=== PATIENT | female | born 1970 | race Caucasian/White ===

== ENCOUNTER 2017-05-20 15:39 | Inpatient (IN) | payer OTHER ==
[~2017-05-20] VITALS: Ht 157.5 cm; Wt 60.0 kg
[2017-05-20] MEDS ORDERED: SOD CHLORIDE 0.9% 1,000 ML IV STA (16:20)
[2017-05-20] MEDS ORDERED: morphine 4 MG/ML VIAL IV STA (16:20)
[2017-05-20] MEDS ORDERED: ONDANSETRON 4 MG INJ IV STA (16:20)
[2017-05-20 16:40] LABS: BASOPHIL # 0.1 10^3/ul (0.0-0.1); BASOPHILS % 0.7 % (0.0-2.0); EOSINOPHILS # 0.5 10^3/ul (0.0-0.5); EOSINOPHILS % 7.4 % (0.0-7.0); HEMATOCRIT 41.9 % (37.0-47.0); HEMOGLOBIN 13.5 g/dl (12.0-16.0); LYMPHOCYTES # 2.3 10^3/ul (0.8-2.9); LYMPHOCYTES % 31.8 % (15.0-51.0); MEAN CORPUSCULAR HEMOGLOBIN 26.3 pg (29.0-33.0); MEAN CORPUSCULAR HGB CONC 32.2 g/dl (32.0-37.0); MEAN CORPUSCULAR VOLUME 81.7 fl (82.0-101.0); MEAN PLATELET VOLUME 10.1 fl (7.4-10.4); MONOCYTE # 0.5 10^3/ul (0.3-0.9); MONOCYTES % 7.6 % (0.0-11.0); NEUTROPHILS % 52.5 % (39.0-77.0); PLATELET COUNT 406 10^3/UL (140-415); RED BLOOD COUNT 5.13 10^6/ul (4.20-5.40); RED CELL DISTRIBUTION WIDTH 15.6 % (11.5-14.5); WHITE BLOOD COUNT 7.1 10^3/ul (4.8-10.8)
[2017-05-20 16:56] LABS: PROTIME 13.2 Sec (12.2-14.2)
[2017-05-20 16:59] LABS: ALANINE AMINOTRANSFERASE 22 IU/L (13-69); ALBUMIN 3.7 g/dl (3.3-4.9); ALKALINE PHOSPHATASE 102 IU/L (42-121); ANION GAP 13 (8-16); ASPARTATE AMINO TRANSFERASE 46 IU/L (15-46); BILIRUBIN,INDIRECT 0.2 mg/dl (0-1.1); BILIRUBIN,TOTAL 0.2 mg/dl (0.2-1.3); BLOOD UREA NITROGEN 7 mg/dl (7-20); CALCIUM 9.2 mg/dl (8.4-10.2); CARBON DIOXIDE 28 mmol/L (21-31); CHLORIDE 99 mmol/L (97-110); CREATININE 0.62 mg/dl (0.44-1.00); GLUCOSE 92 mg/dl (70-220); POTASSIUM 4.1 mmol/L (3.5-5.1); SODIUM 136 mmol/L (135-144); TOTAL PROTEIN 7.4 g/dl (6.1-8.1)
[2017-05-20 17:11] LABS: TROPONIN-I < 0.012 ng/ml (0.00-0.12)
[2017-05-20 17:16] LABS: ADD UMIC YES; UR ASCORBIC ACID 40 mg/dL (NEGATIVE); UR BILIRUBIN (Dip) NEGATIVE (NEGATIVE); UR CLARITY CLOUDY (CLEAR); UR COLOR AMBER (YELLOW); UR GLUCOSE (Dip) NEGATIVE (NEGATIVE); UR KETONES (Dip) 1+ mg/dL (NEGATIVE); UR LEUKOCYTE ESTERASE (Dip) 1+ Leu/ul (NEGATIVE); UR MUCUS MANY /HPF (NONE SEEN); UR NITRITE (Dip) NEGATIVE (NEGATIVE); UR RBC > 182 /HPF (0-5); UR SPECIFIC GRAVITY (Dip) 1.028 (1.003-1.030); UR SQUAMOUS EPITHELIAL CELL FEW /HPF (FEW); UR TOTAL PROTEIN (Dip) 3+ mg/dl (NEGATIVE); UR UROBILINOGEN (Dip) NEGATIVE (NEGATIVE)
[2017-05-20] MEDS ORDERED: IOHEXOL 300MG/ML 150 ML BTL ONE (17:18)
[2017-05-20] MEDS ORDERED: SOD CHLORIDE 0.9% 100 ML ONE (17:18)
[2017-05-20 17:21] LABS: UR BLOOD (Dip) 3+ mg/dL (NEGATIVE)
[2017-05-20] MEDS ORDERED: PIPER-TAZO 3.375 GM IV (PMX) 100 ML IVPB ONE (17:30)
--- NOTE | 2017-05-20 21:15 | ERA ---
ER Documentation Chief Complaint Date/Time DATE: 05/20/17 TIME: 21:06 Chief Complaint rectal bleeding, rectal pain and abd pain x 2 months HPI 47-year-old woman with a history of colon cancer presents with rectal pain and bleeding 2 days. She has been using oral analgesics at home without relief. She states she feels weak, denies fevers or chills, no vomiting or diarrhea, no chest pain or shortness of breath. ROS All systems reviewed and are negative except as per history of present illness. Medications Home Meds Reported Medications Acetaminophen* (Acetaminophen*) 500 MG Extra Strength Tablet, 500 MG PO Q4H Y for PAIN AND OR ELEVATED TEMP, TAB 05/21/17 Allergies Allergies: Coded Allergies: No Known Allergy (Unverified , 05/20/17) PMhx/Soc Metastatic colon cancer FmHx Family History: No diabetes Physical Exam Vitals Vital Signs Date Time Temp Pulse Resp B/P Pulse Ox O2 Delivery O2 Flow Rate FiO2 05/20/17 17:39 85 18 101/70 98 Room Air 05/20/17 15:42 98.0 113 20 124/82 95 Physical Exam GENERAL: Well-developed, malnourished, emaciated woman, jaundice, afebrile, moderate discomfort HEENT: Dry mucous membranes, pale conjunctiva, jaundice with icterus, no cervical spine deformity, no goiter NEURO: Alert and oriented 3, cranial nerves II through XII intact bilaterally, pupils equal round reactive to light, no focal deficits or facial asymmetry, sensation intact distally Strength 5/5 in upper and lower extremities bilaterally CARDIAC: Tachycardic and regular, no murmurs rubs or gallops LUNGS: Clear bilaterally no wheezing crackles or stridor ABDOMEN: Large lower abdominal mass, mildly tender, no McBurney's point tenderness, bowel sounds normoactive SKIN: Warm and dry to touch, no abrasions, contusions, or hematomas, no lacerations, no ecchymosis, no target lesions, and without ulcers EXTREMITIES: No clubbing cyanosis, 2+ pitting edema in the lower extremities bilaterally, calves are bilaterally symmetrical, no Homans sign, no popliteal cord sign. Distal pulses equal and bilateral PSYCH: Flat affect Result Diagram: 05/23/17 0455 05/23/17 0455 Results 24 hrs Laboratory Tests Test 05/20/17 16:30 05/20/17 16:45 White Blood Count 7.110^3/ul Red Blood Count 5.1310^6/ul Hemoglobin 13.5g/dl Hematocrit 41.9% Mean Corpuscular Volume 81.7fl Mean Corpuscular Hemoglobin 26.3pg Mean Corpuscular Hemoglobin Concent 32.2g/dl Red Cell Distribution Width 15.6% Platelet Count 60702^3/UL Mean Platelet Volume 10.1fl Neutrophils % 52.5% Lymphocytes % 31.8% Monocytes % 7.6% Eosinophils % 7.4% Basophils % 0.7% Nucleated Red Blood Cells % 0.0/100WBC Neutrophils # (Manual) 3.810^3/ul Lymphocytes # 2.310^3/ul Monocytes # 0.510^3/ul Eosinophils # 0.510^3/ul Basophils # 0.110^3/ul Nucleated Red Blood Cells # 0.010^3/ul Prothrombin Time 13.2Sec Prothrombin Time Ratio 1.0 INR International Normalized Ratio 1.00 Sodium Level 136mmol/L Potassium Level 4.1mmol/L Chloride Level 99mmol/L Carbon Dioxide Level 28mmol/L Anion Gap 13 Blood Urea Nitrogen 7mg/dl Creatinine 0.62mg/dl Glucose Level 92mg/dl Calcium Level 9.2mg/dl Total Bilirubin 0.2mg/dl Direct Bilirubin 0.00mg/dl Indirect Bilirubin 0.2mg/dl Aspartate Amino Transf (AST/SGOT) 46IU/L Alanine Aminotransferase (ALT/SGPT) 22IU/L Alkaline Phosphatase 102IU/L Troponin I < 0.012ng/ml Total Protein 7.4g/dl Albumin 3.7g/dl Globulin 3.70g/dl Albumin/Globulin Ratio 1.00 Lipase 46U/L Urine Color JESSICA Urine Clarity CLOUDY Urine pH 5.0 Urine Specific [place] 1.028 Urine Ketones 1+mg/dL Urine Nitrite NEGATIVEmg/dL Urine Bilirubin NEGATIVEmg/dL Urine Urobilinogen NEGATIVEmg/dL Urine Leukocyte Esterase 1+Trisha/ul Urine Microscopic RBC > 182/HPF Urine Microscopic WBC 12/HPF Urine Squamous Epithelial Cells FEW/HPF Urine Mucus MANY/HPF Urine Hemoglobin 3+mg/dL Urine Glucose NEGATIVEmg/dL Urine Total Protein 3+mg/dl Current Medications Medications (Trade) Dose Ordered Sig/Dong Route PRN Reason Start Time Stop Time Status Last Admin Dose Admin Sodium Chloride (NS) 1,000 ml @ 2,000 mls/hr Q30M STAT IV 05/20/17 16:20 05/20/17 16:49 DC 05/20/17 16:36 Morphine Sulfate (morphine) 4 mg ONCE STAT IV 05/20/17 16:20 05/20/17 16:22 DC 05/20/17 16:36 Ondansetron HCl (Zofran Inj) 4 mg ONCE STAT IV 05/20/17 16:20 05/20/17 16:22 DC 05/20/17 16:36 IV Flush 10 ml 10 ml STK-MED ONCE .ROUTE 05/20/17 17:18 05/20/17 17:19 DC Sodium Chloride (NS) 100 ml @ ud STK-MED ONCE .ROUTE 05/20/17 17:18 05/20/17 17:19 DC Iohexol 150 ml 150 ml STK-MED ONCE .ROUTE 05/20/17 17:18 05/20/17 17:19 DC Piperacillin Sod/ Tazobactam Sod (Zosyn 3.375gm/ 100 ml (Pmx)) 100 ml @ 200 mls/hr ONCE ONCE IVPB 05/20/17 17:30 05/20/17 17:59 DC 05/20/17 17:35 Procedures/MDM IV line was established patient was placed on treating inspector rhythm strip revealed a sinus tachycardia at 100 bpm. Patient was afebrile. EKG performed, read by me: 99 bpm, normal sinus rhythm, normal axis, no acute ST segment changes, narrow QRS complex, with good R-wave progression in precordial leads. Inspection of external genitalia revealed external hemorrhoids and skin desquamation without active bleeding. I administered 2 L normal saline intravenously for dehydration, morphine 4 mg IV 1 for pain control, Zofran 4 mg IV CBC was unremarkable, electrolytes normal, liver function tests normal, troponin was negative urine analysis was concerning for early urinary tract infection. Coagulation profile was normal. I treated her here with Zosyn 3.[address] scan of the abdomen and pelvis was performed and revealed 1. Moderate bilateral pleural effusions and dependent compressive atelectasis and patchy consolidation in the right middle and right lower lobes. 2. Highly suspicious cystic lesions with a dominant lesion appearing to arise from the right adnexa measuring 10.7 x 15.5 x 14.8 cm, concerning for epithelial neoplasm. 3. Questionable soft tissue implant in the right ventral mid abdomen, suspicious for carcinomatosis. 4. Moderate volume of loculated ascites. Anasarca. 5. Indeterminate 1.4 cm hepatic lesion in the junction of segments 5 and 8 with additional hepatic hypodensities that are too small to further characterize. Multiphase CT scan or MRI with Eovist can be performed for further evaluation. 6. Irregular wall thickening of the mid and distal rectum, which may correspond to the patient's known GI neoplasm. 7. Nonspecific bilateral inguinal adenopathy. Patient was afebrile and I do not suspect sepsis. Patient will be admitted to [facility] for continued medical management and surgical oncology consultation. Departure Diagnosis: Primary Impression: Rectal hemorrhage Additional Impressions: Colon carcinoma Pleural effusion UTI (urinary tract infection) Qualified Code: N30.00 - Acute cystitis without hematuria Dehydration Intractable pain Anasarca Condition: CHRISTIANA Bruno MD May 20, 2017 21:15
[2017-05-20] MEDS ORDERED: NACL 0.9% 3 ML SYG IV SCH (21:30)
[2017-05-20] MEDS ORDERED: ACETAMINOPHEN 325 MG TAB PO PRN (21:30)
[2017-05-20] MEDS ORDERED: HYDROCODONE/APAP (5/325) TAB PO PRN ×2 (21:30)
[2017-05-20] MEDS ORDERED: DOCUSATE SODIUM 100 MG CAP PO PRN (21:30)
[2017-05-20] MEDS ORDERED: MAGNESIUM HYDROXIDE 30ML CUP PO PRN (21:30)
[2017-05-20] MEDS ORDERED: BISACODYL 10 MG SUPP PR PRN (21:30)
[2017-05-20] MEDS ORDERED: ONDANSETRON 4 MG INJ IV PRN (21:30)
[2017-05-20 22:35] VITALS: BP_SYST 119; BP_DIAS 70; BP_DIAS 77; PULSE 90; RESP 19; RESP 20
[2017-05-20 22:57] VITALS: Ht 157.5 cm; Wt 60.0 kg
[2017-05-20] MEDS: PIPER-TAZO 3.375 GM IV (PMX) 100 ML IVPB SCH (23:26)
[2017-05-20] MEDS: SOD CHLORIDE 0.9% 1,000 ML IV SCH (23:27)
[2017-05-21 02:06] VITALS: BP 105/66; RESP 18
[2017-05-21] MEDS ORDERED: ACET-141 PO (03:12)
[2017-05-21] MEDS: PIPER-TAZO 3.375 GM IV (PMX) 100 ML IVPB SCH ×3 (06:41→21:50)
[2017-05-21 07:03] LABS: BASOPHILS % 0.7 % (0.0-2.0); EOSINOPHILS # 0.6 10^3/ul (0.0-0.5); EOSINOPHILS % 10.3 % (0.0-7.0); HEMATOCRIT 33.9 % (37.0-47.0); HEMOGLOBIN 10.8 g/dl (12.0-16.0); LYMPHOCYTES # 1.8 10^3/ul (0.8-2.9); LYMPHOCYTES % 32.4 % (15.0-51.0); MEAN CORPUSCULAR HGB CONC 31.9 g/dl (32.0-37.0); MEAN CORPUSCULAR VOLUME 81.5 fl (82.0-101.0); MEAN PLATELET VOLUME 10.6 fl (7.4-10.4); MONOCYTE # 0.6 10^3/ul (0.3-0.9); MONOCYTES % 10.1 % (0.0-11.0); NEUTROPHILS % 46.3 % (39.0-77.0); PLATELET COUNT 324 10^3/UL (140-415); RED BLOOD COUNT 4.16 10^6/ul (4.20-5.40); RED CELL DISTRIBUTION WIDTH 15.9 % (11.5-14.5); WHITE BLOOD COUNT 5.4 10^3/ul (4.8-10.8)
[2017-05-21 07:23] LABS: ALBUMIN 2.6 g/dl (3.3-4.9); ALBUMIN/GLOBULIN RATIO 0.86; BILIRUBIN,INDIRECT 0.1 mg/dl (0-1.1); BILIRUBIN,TOTAL 0.1 mg/dl (0.2-1.3); CREATININE 0.52 mg/dl (0.44-1.00); MAGNESIUM 1.9 mg/dl (1.7-2.5); PHOSPHORUS 4.2 mg/dl (2.5-4.9); POTASSIUM 3.9 mmol/L (3.5-5.1); TOTAL PROTEIN 5.6 g/dl (6.1-8.1)
[2017-05-21 07:50] LABS: THYROID STIMULATING HORMONE 2.87 MIU/L (0.465-4.680)
[2017-05-21 08:00] VITALS: BP 118/64; RESP 20
[2017-05-21] MEDS: FAMOTIDINE 20 MG TAB PO SCH ×2 (08:50→20:01)
[2017-05-21] MEDS: SOD CHLORIDE 0.9% 1,000 ML IV SCH ×2 (08:50→17:59)
[2017-05-21] MEDS ORDERED: ENOXAPARIN 40 MG/0.4 ML SYG SC SCH (09:00)
--- NOTE | 2017-05-21 09:54 | RADRPT ---
PROCEDURE: CT abdomen and pelvis with contrast. CLINICAL INDICATION: Abdominal pain. Rectal bleeding. TECHNIQUE: CT scan of the abdomen and pelvis with contrast was performed after the uneventful intrav enous administration of 90 cc of Omnipaque-300. Coronal and sagittal reformatted images were obtaine d from the axial source images. The total exam CTDI equals 7.59 mGy and the total exam DLP equals 42 7.53 mGy-cm. One or more of the following dose reduction techniques were used: - Automated exposure control. - Adjustment of the mA and/or kV according to patient size. - Use of iterative reconstruction technique. COMPARISON: None available. FINDINGS: Visualized lower thorax: There are moderate bilateral pleural effusions with dependent compressive atelectasis. There is patchy consolidation in the visualized aerated right lower lobe and right mid dle lobe. There is also minor consolidation in the lingula. The visualized heart is unremarkable. Hepatobiliary system and spleen: There is an indeterminate 1.4 cm hypodense lesion at the junction of segment 5 and 8 in the liver and additional hypodensities scattered throughout the liver that are too small to further characterize. There is no intra or extrahepatic biliary ductal dilatation. The gallbladder is unremarkable. The spleen is unremarkable. The pancreas is unremarkable. Adrenal glands and genitourinary system: The adrenal glands are unremarkable. There are no renal ma sses or hydronephrosis. The urinary bladder is unremarkable. There is a large, multiloculated cystic lesion with thickened enhancing septa and likely a thickened mural nodularity that appears to be ar ising from the right adnexa are measuring approximately 10.7 x 15.5 x 14.8 cm. There is an addition al multiloculated cystic lesion with thickened enhancing septa and mural nodularity centered in the posterior pelvis measuring 7.0 x 5.5 cm, which appears to be separate from the dominant cystic lesio n and may be arising from the left adnexa. The uterus is unremarkable. There is nonspecific fluid within the vaginal canal. Gastrointestinal system: The stomach and small bowel are unremarkable. There is a moderate of stool throughout the colon, consistent with constipation. There is nonspecific irregular wall thickening of the mid and distal rectum. There is no evidence of bowel obstruction. The appendix is in the ri ght lower quadrant and is unremarkable. Peritoneum, vascular system, lymphatics: There is a moderate volume of loculated ascites. There is questionable soft tissue thickening in the ventral right mid abdomen, which may reflect carcinomatos is. The aorta is nonaneurysmal. There is anasarca. There is bilateral inguinal adenopathy. There is no mesenteric or retroperitoneal adenopathy. Musculoskeletal system: There are no concerning osseous lesions. IMPRESSION: 1. Moderate bilateral pleural effusions and dependent compressive atelectasis and patchy consolidat ion in the right middle and right lower lobes. 2. Highly suspicious cystic lesions with a dominant lesion appearing to arise from the right adnexa measuring 10.7 x 15.5 x 14.8 cm, concerning for epithelial neoplasm. 3. Questionable soft tissue implant in the right ventral mid abdomen, suspicious for carcinomatosis . 4. Moderate volume of loculated ascites. Anasarca. 5. Indeterminate 1.4 cm hepatic lesion in the junction of segments 5 and 8 with additional hepatic hypodensities that are too small to further characterize. Multiphase CT scan or MRI with Eovist can be performed for further evaluation. 6. Irregular wall thickening of the mid and distal rectum, which may correspond to the patient's kn own GI neoplasm. 7. Nonspecific bilateral inguinal adenopathy. These findings discussed with Dr. Blanco in the ED at 1923 hours on 05/20/2017. RPTAT: HLBP .Gerard Woods MD, Date Time Electronically viewed and signed by .Gerard Woods MD, on 05/20/2017 19:28 .P/
--- NOTE | 2017-05-21 10:43 | HP ---
Date/Time of Note Date/Time of Note DATE: 05/21/17 TIME: 10:30 Assessment/Plan VTE Prophylaxis VTE Prophylaxis Intervention: SCD's Lines/Catheters IV [facility]ter [facility]from [facility]): Peripheral IV Urinary Cath still in place: No Assessment/Plan Assessment/Plan 47-year-old female with: 1. Metastatic carcinoma, patient with multiple intra-abdominal masses, adnexal cystic masses, concern for primary ovarian cancer also based on the findings on CAT scan of the abdomen and pelvis, patient also a history reported of GI malignancy. CA 125 elevated in the 700 I discussed the case with Dr. Edwards, he will review additional information regarding this previous colon cancer diagnosis and liver findings but would defer to [employer]/ONC and Oncology for now MRI brain, CAT scan of the chest pending for further staging Follow-up recommendation for multiple consultants I did update the patient and the patient , they are very emotional and want to be aggressive at this point. I have told her and her multiple times we have to await recommendations and evaluation from the consultants to determine her final diagnosis, treatment plan if any and prognosis Continue pain control, IV fluids 2. Possible urinary tract infection based on UA, follow-up on urine cultures, currently on Zosyn. 3. Chronic anemia, likely related to underlying malignancy and also episodes of rectal bleeding. Hemoglobin stable for now. GI consult if needed. Prophylaxis: SCDs for DVT prophylaxis, Pepcid for GI prophylaxis Disposition: Additional imaging for metastatic workup, multiple consultants including general surgery, oncology, [employer]/ONC and GI if needed. HPI/ROS Admit Date/Time Admit Date/Time May 20, 2017 at 18:19 Hx of Present Illness Chief complaint: Abdominal pain History of presenting illness: 47-year-old female with apparently previous diagnosis of GI malignancy a year and a half ago, she declined all treatment including surgery at that time, presented to the emergency department last night with complaint of diffuse abdominal pain and stool incontinence. Patient had a CAT scan of the abdomen and pelvis and was found to have a multiple masses throughout the abdomen consistent with metastatic disease. The patient reports that for the past 6 months she has been having episodes of rectal bleeding, over the past year she has a 30 pound weight loss, she still tolerating some p.o. but decreased appetite. She denies any fevers chills, she denies any dysuria. She reports occasional rectal bleeding but otherwise a mucous stool, she reports that she went to [facility] 6 months ago and was told to assume she had IBS and did not seek any further care. It seems like she has not had much follow-up since her diagnosis a year and a half ago and she has declined all treatment at that time. She is now pleading to have debulking surgery, aggressive treatment. I have explained to her that proper diagnosis has to be made especially when the CAT scan is showing some ovarian cystic masses also suspicious for possible ovarian cancer. I have discussed the case briefly with Dr. Edwards based on the previous diagnosis of colon cancer and the findings currently. He has reviewed the CAT scan and again is suspicious that ovarian cancer may be the primary/or at least a concomitant malignancy. Oncology, [employer]/ONC will be consulted, MRI of the brain along with CAT scan of the chest are pending for further workup Also were trying to get outpatient records regarding her previous diagnosis a year and a half ago of colon CA or GI malignancy ROS Constitutional: fatigue, weight change (30 pound weight loss over 1 year) Gastrointestinal: decreased appetite, other (Loose stools), pain (Diffuse abdominal pain) Genitourinary: no complaints Musculoskeletal: no complaints Neurologic: other (Generalized weakness) PMH/Family/Social Past Medical History Patient reports a diagnosis of GI malignancy a year and a half ago, was told she would need a colostomy but declined and also declined any further chemotherapy or radiation Medical History: cancer Past Surgical History Past Surgical Hx: no surgical history Family History Significant Family History: cancer (Mother of pancreatic cancer 2 years ago) Social History Alcohol Use: none Smoking Status: Never smoker Drug Use: none Exam/Review of Systems Vital Signs Vitals Vital Signs Date Time Temp Pulse Resp B/P Pulse Ox O2 Delivery O2 Flow Rate FiO2 05/21/17 08:00 98.8 72 20 118/64 96 05/20/17 22:35 Room Air Intake and Output 05/20/17 05/20/17 05/21/17 15:00 23:00 07:00 Intake Total 960 ml Balance 960 ml Exam Constitutional: alert, frail, oriented (x4) Respiratory: diminished breath sounds (Bilateral lower lobes), normal air movement Cardiovascular: nl pulses, regular rate and rhythm Gastrointestinal: distended, soft, tender (Diffuse abdomen) Musculoskeletal: nl extremities to inspection, swelling (With some anasarca) Extremities: normal pulses 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: [employer]NAGER 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, nl mental status, nl speech, nl strength Labs Result Diagram: 05/21/1752705/21/17527 Medications Medications Current Medications Sodium Chloride (NS) 1,000 ml @ 100 mls/hr Q10H IV Last administered on 08:50; Admin Dose 100 MLS/HR; Start 05/20/17 at 21:07 Ondansetron HCl (Zofran Inj) 4 mg Q6H PRN IV NAUSEA AND/OR VOMITING; Start at 21:30 Acetaminophen (Tylenol Tab) 650 mg Q6H PRN PO PAIN LEVEL 1-3 OR FEVER; Start at 21:30 Acetaminophen/ Hydrocodone Bitart ([place] (5/325)) 1 tab Q6H PRN PO MODERATE PAIN LEVEL 4-6; Start 05/20/17 at 21:30 Acetaminophen/ Hydrocodone Bitart ([place] (5/325)) 2 tab Q6H PRN PO SEVERE PAIN LEVEL 7-10; Start 05/20/17 at 21:30 Morphine Sulfate (morphine) 2 mg Q4H PRN IV SEVERE PAIN LEVEL 7-10; Start 05/20 at 21:30 Docusate Sodium (Colace) 100 mg Q12H PRN PO CONSTIPATION; Start 05/20/17 at 21: 30 Magnesium Hydroxide (Milk Of Mag) 30 ml DAILY PRN PO CONSTIPATION; Start at 21:30 Bisacodyl (Dulcolax Supp) 10 mg DAILY PRN [place] CONSTIPATION; Start 05/20/17 at 21 :30 Famotidine (Pepcid) 20 mg Q12 PO Last administered on 05/21/17 08:50; Admin Dose 20 MG; Start 05/21/17 at 09:00 Enoxaparin Sodium 40 mg 40 mg DAILY SC ; Start 05/21/17 at 09:00 Piperacillin Sod/ Tazobactam Sod (Zosyn 3.375gm/ 100 ml (Pmx)) 100 ml @ 200 mls /hr Q8 IVPB Last administered on 05/21/17 06:41; Admin Dose 200 MLS/HR; Start 05/20/17 at 22:00 Procedures Procedures PROCEDURE: CT abdomen and pelvis with contrast. CLINICAL INDICATION: Abdominal pain. Rectal bleeding. TECHNIQUE: CT scan of the abdomen and pelvis with contrast was performed after the uneventful intravenous administration of 90 cc of Omnipaque-300. Coronal and sagittal reformatted images were obtained from the axial source images. The total exam CTDI equals 7.59 mGy and the total exam DLP equals 427.53 mGy-cm. One or more of the following dose reduction techniques were used: - Automated exposure control. - Adjustment of the mA and/or kV according to patient size. - Use of iterative reconstruction technique. COMPARISON: None available. FINDINGS: Visualized lower thorax: There are moderate bilateral pleural effusions with dependent compressive atelectasis. There is patchy consolidation in the visualized aerated right lower lobe and right middle lobe. There is also minor consolidation in the lingula. The visualized heart is unremarkable. Hepatobiliary system and spleen: There is an indeterminate 1.4 cm hypodense lesion at the junction of segment 5 and 8 in the liver and additional hypodensities scattered throughout the liver that are too small to further characterize. There is no intra or extrahepatic biliary ductal dilatation. The gallbladder is unremarkable. The spleen is unremarkable. The pancreas is unremarkable. Adrenal glands and genitourinary system: The adrenal glands are unremarkable. There are no renal masses or hydronephrosis. The urinary bladder is unremarkable. There is a large, multiloculated cystic lesion with thickened enhancing septa and likely a thickened mural nodularity that appears to be arising from the right adnexa are measuring approximately 10.7 x 15.5 x 14.8 cm. There is an additional multiloculated cystic lesion with thickened enhancing septa and mural nodularity centered in the posterior pelvis measuring 7.0 x 5.5 cm, which appears to be separate from the dominant cystic lesion and may be arising from the left adnexa. The uterus is unremarkable. There is nonspecific fluid within the vaginal canal. Gastrointestinal system: The stomach and small bowel are unremarkable. There is a moderate of stool throughout the colon, consistent with constipation. There is nonspecific irregular wall thickening of the mid and distal rectum. There is no evidence of bowel obstruction. The appendix is in the right lower quadrant and is unremarkable. Peritoneum, vascular system, lymphatics: There is a moderate volume of loculated ascites. There is questionable soft tissue thickening in the ventral right mid abdomen, which may reflect carcinomatosis. The aorta is nonaneurysmal. There is anasarca. There is bilateral inguinal adenopathy. There is no mesenteric or retroperitoneal adenopathy. Musculoskeletal system: There are no concerning osseous lesions. IMPRESSION: 1. Moderate bilateral pleural effusions and dependent compressive atelectasis and patchy consolidation in the right middle and right lower lobes. 2. Highly suspicious cystic lesions with a dominant lesion appearing to arise from the right adnexa measuring 10.7 x 15.5 x 14.8 cm, concerning for epithelial neoplasm. 3. Questionable soft tissue implant in the right ventral mid abdomen, suspicious for carcinomatosis. 4. Moderate volume of loculated ascites. Anasarca. 5. Indeterminate 1.4 cm hepatic lesion in the junction of segments 5 and 8 with additional hepatic hypodensities that are too small to further characterize. Multiphase CT scan or MRI with Eovist can be performed for further evaluation. 6. Irregular wall thickening of the mid and distal rectum, which may correspond to the patient's known GI neoplasm. 7. Nonspecific bilateral inguinal adenopathy. These findings discussed with Dr. Blanco in the ED at 1923 hours on 2016. RPTAT: HLBP .Gerard Woods MD, MD Date Time Electronically viewed and signed by .Gerard Woods MD, on 05/20/2017 19:28 PORTIA TORRE May 21, 2017 10:41
[2017-05-21] MEDS: morphine 2 MG INJ IV PRN ×2 (11:47→20:00)
--- NOTE | 2017-05-21 11:55 | CONS ---
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 Although there is a slight possibility of concomitant ovarian malignancy as well, I believe this to be more of a Krukenberg type picture on the abdominal CT scan and not primary ovarian process. Note that much information is still missing and we are in the process of obtaining prior workup at this time. Unfortunately, there are no good surgical interventions are indicated at this time, although opinion from our gynecologic oncologists would be much appreciated and are still pending. From a general surgical standpoint, I do not see any indication for surgical intervention and would recommend that be expedite getting the patient to systemic chemotherapy since this would most likely be the only intervention that potentially could make an impact in the patient's care. I explained all of the above to the patient and her in detail and answered all of her questions to the best of my ability. Patient appeared to understand and agree with the plans. With above assessment, I've recommended the followin. Continue current cares 2. Agree with gynecologic oncology consultation 3. Oncology consultation recommended 4. Obtain old records 5. Multidisciplinary tumor board presentation 6. Consideration for clinical trials 7. I agree with MRI of the head Thank you very much for having me involved in the care of this very pleasant patient and wonderful family. If you have any questions, please feel free to contact me at [phone]. Nature of presenting problem: High severity Please note that, given the extent number of diagnoses or management options, the extensive amount and/or complexity of data needed to be reviewed, and I risk of complications and/or morbidity or mortality, this qualifies as high complexity type of decision-making. Disclaimer: Inadvertent spelling and grammatical errors are likely due to EHR/ dictation software use and do not reflect on the quality of delivered patient care. Also, please note that the electronic time recorded on this node does not necessarily reflect the actual time of the visit. 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 Comorbidities: 1. Known neoplasm (possibly of colorectal origin; details missing) with no reported prior surgeries, chemotherapy or radiation 2. Moderate bilateral pleural effusions and dependent compressive atelectasis and patchy consolidation in the right middle and right lower lobes. ([facility] CT ) 3. Highly suspicious cystic lesions with a dominant lesion appearing to arise from the right adnexa measuring 10.7 x 15.5 x 14.8 cm, concerning for epithelial neoplasm. ([facility] CT 05/20/17) 4. Questionable soft tissue implant in the right ventral mid abdomen, suspicious for carcinomatosis. ([facility] CT 05/20/17) 5. Moderate volume of loculated ascites. Anasarca. ([facility] CT 05/20/17) 6. Indeterminate 1.4 cm hepatic lesion in the junction of segments 5 and 8 with additional hepatic hypodensities that are too small to further characterize. ([facility] CT 05/20/17) 7. Irregular wall thickening of the mid and distal rectum, which may correspond to the patient's known GI neoplasm. ([facility] CT 05/20/17) 8. Nonspecific bilateral inguinal adenopathy. ([facility] CT 05/20/17) 9. Chronic anemia 10. Possible urinary tract infection CONSULTATION REQUESTED BY: Lyric Bull MD HISTORY OF PRESENT ILLNESS: The patient is a very pleasant 47-year-old lady with diagnosis of malignancy for at least the last 1-1/2 years whom we were kindly asked consult regarding possible surgical management of her issues. There is report of diagnoses of GI malignancy 1-1/2 years ago at [facility] with recommendation for surgery, but there does not appear to have been any further treatments done, due to patient's own decision per her own report. Patient was admitted through the emergency department at [facility] on 05/20/2017 with abdominal pain which was diffuse, and stool incontinence. There is report of occasional rectal bleeding. Patient does have fatigue as 1 of her complaints and reports approximately 30 pound weight loss over 1 year period. ALLERGIES: NO KNOWN DRUG ALLERGIES MEDICATIONS Documented in the electronic records and reviewed by me. Please see the electronic records for details, as well as details for inpatient medications which were also reviewed by me. SOCIAL HISTORY: The patient lives with family.-Tob;-ETOH;-IVDU FAMILY HISTORY: Mother from pancreatic cancer 2014. There are no other significant medical, surgical or oncologic issues in the family as reported by the patient or reflected in the chart. REVIEW OF SYSTEMS: Other than mentioned above, there were no other pertinent positives or pertinent negatives in an otherwise complete 14 point review of systems. PHYSICAL EXAMINATION GENERAL: The patient appears to be a very pleasant lady of non- descent lying in bed, appearing stated age, and otherwise in no acute distress. BMI: 24.2 VITAL SIGNS: AVSS (please also see auto important data if available as well as the electronic records) HEENT: Normocephalic and atraumatic. Extraocular muscles and hearing are grossly intact bilaterally and symmetrically. Sclerae are nonicteric. Oral cavity is clear; oral mucosa appear to be pink and moist. Dentition: fair. NECK: Supple. There is no lymphadenopathy or JVD. There is no submental, submandibular or supraclavicular lymphadenopathy. CHEST: Rises symmetrically with each breath; patient is breathing comfortably. There are no audible wheezes, rales or rhonchi on the gross exam. HEART: Pulse is regular and palpable on the right wrist. Capillary refill is normal. Carotid pulses are palpable bilaterally and symmetrically in the neck. EXTREMITIES: Lower extremities contain no pitting edema around the ankles bilaterally and symmetrically. ABDOMEN: Abdomen is soft, nontender and nondistended. No evidence of ascites, organomegaly, caput medusae, engorged subcutaneous veins, or other abnormalities. There are no peritoneal signs or guarding. Perianal exam revealed a mass that was more than half the circumference of the anus protruding out from the anus and somewhat tender to palpation. Rectal exam was not performed due to pain. No obvious active bleeding noted. SKIN: Appears to be pink and feels warm to touch. NEUROLOGIC: Awake, alert, and follows commands appropriately. LABORATORY DATA: See below IMAGING: See electronic chart. Please note that I've personally reviewed all pertinent available images and I agree in general with their overall reported findings. CT scan abdomen and pelvis and chest without contrast [facility] 05/20/2017 IMPRESSION: 1. Moderate bilateral pleural effusions and dependent compressive atelectasis and patchy consolidation in the right middle and right lower lobes. 2. Highly suspicious cystic lesions with a dominant lesion appearing to arise from the right adnexa measuring 10.7 x 15.5 x 14.8 cm, concerning for epithelial neoplasm. 3. Questionable soft tissue implant in the right ventral mid abdomen, suspicious for carcinomatosis. 4. Moderate volume of loculated ascites. Anasarca. 5. Indeterminate 1.4 cm hepatic lesion in the junction of segments 5 and 8 with additional hepatic hypodensities that are too small to further characterize. Multiphase CT scan or MRI with Eovist can be performed for further evaluation. 6. Irregular wall thickening of the mid and distal rectum, which may correspond to the patient's known GI neoplasm. 7. Nonspecific bilateral inguinal adenopathy. Consultation Date/Type/Reason Admit Date/Time May 20, 2017 at 18:19 Gastrointestinal: decreased appetite, other (Loose stools), pain (Diffuse abdominal pain) Genitourinary: no complaints Musculoskeletal: no complaints Neurologic: other (Generalized weakness) Past Medical History Medical History: cancer Past Surgical History Past Surgical Hx: no surgical history Social History Alcohol Use: none Smoking Status: Never smoker Drug Use: none Exam/Review of Systems Vital Signs Vitals Vital Signs Date Time Temp Pulse Resp B/P Pulse Ox O2 Delivery O2 Flow Rate FiO2 05/21/17 08:00 98.8 72 20 118/64 96 05/20/17 22:35 Room Air Intake and Output 05/20/17 05/20/17 05/21/17 15:00 23:00 07:00 Intake Total 960 ml Balance 960 ml Results Result Diagram: 05/21/17 0528 05/21/17 0528 Results 24 hrs Laboratory Tests Test 05/20/17 16:30 05/20/17 16:45 05/21/17 05:25 05/21/17 05:28 White Blood Count 7.1 5.4 # Red Blood Count 5.13 4.16 L Hemoglobin 13.5 10.8 L Hematocrit 41.9 33.9 L Mean Corpuscular Volume 81.7 L 81.5 L Mean Corpuscular Hemoglobin 26.3 L 26.0 L Mean Corpuscular Hemoglobin Concent 32.2 31.9 L Red Cell Distribution Width 15.6 H 15.9 H Platelet Count 406 324 # Mean Platelet Volume 10.1 10.6 H Neutrophils % 52.5 46.3 Lymphocytes % 31.8 32.4 Monocytes % 7.6 10.1 Eosinophils % 7.4 H 10.3 H Basophils % 0.7 0.7 Nucleated Red Blood Cells % 0.0 0.0 Neutrophils # (Manual) 3.8 2.5 Lymphocytes # 2.3 1.8 Monocytes # 0.5 0.6 Eosinophils # 0.5 0.6 H Basophils # 0.1 0.0 Nucleated Red Blood Cells # 0.0 0.0 Prothrombin Time 13.2 Prothrombin Time Ratio 1.0 INR International Normalized Ratio 1.00 Sodium Level 136 138 Potassium Level 4.1 3.9 Chloride Level 99 100 Carbon Dioxide Level 28 28 Anion Gap 13 14 Blood Urea Nitrogen 7 7 Creatinine 0.62 0.52 Glucose Level 92 100 Calcium Level 9.2 8.0 L Total Bilirubin 0.2 0.1 L Direct Bilirubin 0.00 0.00 Indirect Bilirubin 0.2 0.1 Aspartate Amino Transf (AST/SGOT) 46 35 Alanine Aminotransferase (ALT/SGPT) 22 25 Alkaline Phosphatase 102 70 Troponin I < 0.012 Total Protein 7.4 5.6 #L Albumin 3.7 2.6 #L Globulin 3.70 H 3.00 Albumin/Globulin Ratio 1.00 0.86 Lipase 46 Urine Color JESSICA Urine Clarity CLOUDY A Urine pH 5.[address] 1.028 Urine Ketones 1+ H Urine Nitrite NEGATIVE Urine Bilirubin NEGATIVE Urine Urobilinogen NEGATIVE Urine Leukocyte Esterase 1+ H Urine Microscopic RBC > 182 H Urine Microscopic WBC 12 H Urine Squamous Epithelial Cells FEW Urine Mucus MANY A Urine Hemoglobin 3+ H Urine Glucose NEGATIVE Urine Total Protein 3+ H CA 19-9 Antigen 134.0 H Phosphorus Level 4.2 Magnesium Level 1.9 Carcinoembryonic Antigen 93.1 H CA 125 Antigen 781.0 H Thyroid Stimulating Hormone (TSH) 2.870 Free Thyroxine 1.22 Medications Medications Current Medications Sodium Chloride (NS) 1,000 ml @ 100 mls/hr Q10H IV Last administered on t 08:50; Admin Dose 100 MLS/HR; Start 05/20/17 at 21:07 Ondansetron HCl (Zofran Inj) 4 mg Q6H PRN IV NAUSEA AND/OR VOMITING; Start at 21:30 Acetaminophen (Tylenol Tab) 650 mg Q6H PRN PO PAIN LEVEL 1-3 OR FEVER; Start at 21:30 Acetaminophen/ Hydrocodone Bitart ([place] (5/325)) 1 tab Q6H PRN PO MODERATE PAIN LEVEL 4-6; Start 05/20/17 at 21:30 Acetaminophen/ Hydrocodone Bitart ([place] (5/325)) 2 tab Q6H PRN PO SEVERE PAIN LEVEL 7-10; Start 05/20/17 at 21:30 Morphine Sulfate (morphine) 2 mg Q4H PRN IV SEVERE PAIN LEVEL 7-10 Last administered on 05/21/17 11:47; Admin Dose 2 MG; Start 05/20/17 at 21:30 Docusate Sodium (Colace) 100 mg Q12H PRN PO CONSTIPATION; Start 05/20/17 at 21: 30 Magnesium Hydroxide (Milk Of Mag) 30 ml DAILY PRN PO CONSTIPATION; Start at 21:30 Bisacodyl (Dulcolax Supp) 10 mg DAILY PRN [place] CONSTIPATION; Start 05/20/17 at 21 :30 Famotidine 20 mg 20 mg Q12 PO Last administered on 05/21/17 08:50; Admin Dose 20 MG; Start 05/21/17 at 09:00 Piperacillin Sod/ Tazobactam Sod (Zosyn 3.375gm/ 100 ml (Pmx)) 100 ml @ 200 mls /hr Q8 IVPB Last administered on 05/21/17 06:41; Admin Dose 200 MLS/HR; Start 05/20/17 at 22:00 AKHIL ESPINOZA M.D. May 21, 2017 11:55
--- NOTE | 2017-05-21 11:56 | RADRPT ---
PROCEDURE: CT Chest without contrast. CLINICAL INDICATION: Cancer. Evaluate for metastatic disease. TECHNIQUE: Multiple contiguous helical CT images of the chest were obtained without the administra tion of intravenous contrast. Coronal and sagittal reformatted images were obtained from the source images. CTDIvol (mGy): 5.65; Total Exam DLP (mGy-cm): 192.0 a. One or more of the following dose reduction techniques were utilized: - Automated exposure control. - Adjustment of the mA and/or kV according to patient size. - Use of iterative reconstruction technique. COMPARISON: CT abdomen/pelvis 05/20/2017. FINDINGS: Limited imaging of the lower neck is unremarkable. The heart is not enlarged. There is no pericardial effusion. There is no mediastinal, hilar or axi llary lymphadenopathy. The thoracic aorta is normal in caliber. The pulmonary arteries are not enl arged. Large bilateral layering pleural effusions are present. Numerous tiny solid and ground-glass nodule s are seen throughout the lungs, some of which does demonstrate subtle central cavitation. Scattere d atelectasis is seen throughout the lungs along with subtle nodular interstitial thickening. Diffu se bronchial wall thickening is present. Limited imaging of the upper abdomen demonstrates ascites and scattered small ill-defined hypodense lesions of the liver. Degenerative changes of the spine are present. Chest wall soft tissues are unremarkable. IMPRESSION: Large bilateral layering pleural effusions. Mild nodular interstitial thickening is also observed. Imaging findings suggest the presence of malignant pleural effusions with pleural carcinomatosis. Numerous tiny solid and ground-glass nodules throughout the lungs, some of which demonstrates subtle central cavitation. Imaging appearance is most concerning for pulmonary metastases. Ascites with scattered ill-defined hypodense lesions throughout the liver concerning for liver metas tases seen on recent CT abdomen/pelvis. Please refer to dedicated CT abdomen/pelvis report for delroy tional findings. RPTAT: HLST .Shelley Lew MD, Date Time Electronically viewed and signed by .Shelley Lew MD, on 05/21/2017 11:56 .T/
[2017-05-21 14:00] VITALS: BP 109/74; RESP 20
--- NOTE | 2017-05-21 22:01 | CONS ---
Date/Time of Note Date/Time of Note DATE: 05/21/17 TIME: 21:28 Assessment/Plan Assessment/Plan Chief Complaint/Hosp Course 47 yo with #Metastatic ca with likely malignancy pleural effusions, pulmonary mets, pleural carcinomatosis, hepatic mets , cystic lesions with a dominant lesion appearing to arise from the right adnexa measuring 10.7 x 15.5 x 14.8 cm, rectal wall thickening and bilateral inguinal adenopathy. -at this time we need to confirm the diagnosis -elevated CEA and CA 125 make either GI primary or Ovarian primary a possibility. Pt may also have 2 primaries -agree with [facility] consult -will review records -if a diagnosis is not able to be made we will need to rebiopsy the patient -if rectal primary , will need to check KRAS mutation status and for Microsatellite Instability as these results can help to guide treatment -f/u Brain MRI #Anemia - likely 2/2 blood loss and iron deficiency -will start IV iron at this time #Bilateral Pleural Effusions -if not able to confirm diagnosis, we can potentially obtain cytology from the malignancy effusion which can yield a diagnosis #UTI -continue antibiotics Problems: (1) Pleural effusion Status: Acute (2) Rectal hemorrhage Status: Acute Consultation Date/Type/Reason Admit Date/Time May 20, 2017 at 18:19 Date of Consultation: May 22, 2017 Type of Consultation: Oncology Reason for Consultation metastatic rectal cancer Referring Provider: PORTIA TORRE Hx of Present Illness 47-year-old female with a presumed diagnosis of GI malignancy a year and a half ago when she initially declined treatment. She now presents to the ER with diffuse abdominal pain stool incontinence and rectal bleeding. Patient had a CAT scan of the abdomen and pelvis which demonstrated, Moderate bilateral pleural effusions, highly suspicious cystic lesions with a dominant lesion appearing to arise from the right adnexa measuring 10.7 x 15.5 x 14.8 cm, loculated ascites, Indeterminate 1.4 cm hepatic lesion in the junction of segments 5 and 8 with additional hepatic hypodensities that are too small to further characterize, as well as nonspecific bilateral inguinal adenopathy. Pt states she does want therapy and thus we have been consulted for further workup and treatment. Gastrointestinal: decreased appetite, other (Loose stools), pain (Diffuse abdominal pain) Genitourinary: no complaints Musculoskeletal: no complaints Neurologic: other (Generalized weakness) Past Medical History Medical History: cancer (h/o rectal ca dx 1 year ago) Past Surgical History Past Surgical Hx: no surgical history Family History Significant Family History: other (Mother of pancreatic cancer 2 years ago ) Social History Alcohol Use: none Smoking Status: Never smoker Drug Use: none Exam/Review of Systems Vital Signs Vitals Vital Signs Date Time Temp Pulse Resp B/P Pulse Ox O2 Delivery O2 Flow Rate FiO2 05/21/17 14:00 98.8 88 20 109/74 96 05/20/17 22:35 Room Air Intake and Output 05/20/17 05/20/17 05/21/17 14:59 22:59 06:59 Intake Total 960 ml Balance 960 ml Exam Constitutional: alert, distress, oriented Psych: anxiety, depression Eyes: nl conjunctiva ENMT: nl external ears & nose Neck: non-tender, supple Respiratory: clear to auscultation, normal air movement Cardiovascular: nl pulses, regular rate and rhythm Gastrointestinal: soft Musculoskeletal: nl extremities to inspection Results Result Diagram: 05/21/17 0528 05/21/1728 Results 24 hrs Laboratory Tests Test 05/21/17 05:25 05/21/17 05:28 CA 19-9 Antigen 134.0 H White Blood Count 5.4 # Red Blood Count 4.16 L Hemoglobin 10.8 L Hematocrit 33.9 L Mean Corpuscular Volume 81.5 L Mean Corpuscular Hemoglobin 26.0 L Mean Corpuscular Hemoglobin Concent 31.9 L Red Cell Distribution Width 15.9 H Platelet Count 324 # Mean Platelet Volume 10.6 H Neutrophils % 46.3 Lymphocytes % 32.4 Monocytes % 10.1 Eosinophils % 10.3 H Basophils % 0.7 Nucleated Red Blood Cells % 0.0 Neutrophils # (Manual) 2.5 Lymphocytes # 1.8 Monocytes # 0.6 Eosinophils # 0.6 H Basophils # 0.0 Nucleated Red Blood Cells # 0.0 Sodium Level 138 Potassium Level 3.9 Chloride Level 100 Carbon Dioxide Level 28 Anion Gap 14 Blood Urea Nitrogen 7 Creatinine 0.52 Glucose Level 100 Calcium Level 8.0 L Phosphorus Level 4.2 Magnesium Level 1.9 Total Bilirubin 0.1 L Direct Bilirubin 0.00 Indirect Bilirubin 0.1 Aspartate Amino Transf (AST/SGOT) 35 Alanine Aminotransferase (ALT/SGPT) 25 Alkaline Phosphatase 70 Total Protein 5.6 #L Albumin 2.6 #L Globulin 3.00 Albumin/Globulin Ratio 0.86 Carcinoembryonic Antigen 93.1 H CA 125 Antigen 781.0 H Thyroid Stimulating Hormone (TSH) 2.870 Free Thyroxine 1.22 Medications Medications Current Medications Sodium Chloride (NS) 1,000 ml @ 100 mls/hr Q10H IV Last administered on 17:59; Admin Dose 100 MLS/HR; Start 05/20/17 at 21:07 Ondansetron HCl (Zofran Inj) 4 mg Q6H PRN IV NAUSEA AND/OR VOMITING; Start at 21:30 Acetaminophen (Tylenol Tab) 650 mg Q6H PRN PO PAIN LEVEL 1-3 OR FEVER; Start at 21:30 Acetaminophen/ Hydrocodone Bitart ([place] (5/325)) 1 tab Q6H PRN PO MODERATE PAIN LEVEL 4-6; Start 05/20/17 at 21:30 Acetaminophen/ Hydrocodone Bitart ([place] (5/325)) 2 tab Q6H PRN PO SEVERE PAIN LEVEL 7-10; Start 05/20/17 at 21:30 Morphine Sulfate (morphine) 2 mg Q4H PRN IV SEVERE PAIN LEVEL 7-10 Last administered on 05/21/17 20:00; Admin Dose 2 MG; Start 05/20/17 at 21:30 Docusate Sodium (Colace) 100 mg Q12H PRN PO CONSTIPATION; Start 05/20/17 at 21: 30 Magnesium Hydroxide (Milk Of Mag) 30 ml DAILY PRN PO CONSTIPATION; Start at 21:30 Bisacodyl (Dulcolax Supp) 10 mg DAILY PRN [place] CONSTIPATION; Start 05/20/17 at 21 :30 Famotidine 20 mg 20 mg Q12 PO Last administered on 05/21/17 20:01; Admin Dose 20 MG; Start 05/21/17 at 09:00 Piperacillin Sod/ Tazobactam Sod (Zosyn 3.375gm/ 100 ml (Pmx)) 100 ml @ 200 mls /hr Q8 IVPB Last administered on 05/21/17 14:12; Admin Dose 200 MLS/HR; Start 05/20/17 at 22:00 ROSENDA MERCADO M.D. May 21, 2017 21:40
[2017-05-21 22:58] VITALS: BP 105/67; RESP 18
[2017-05-22] MEDS: SOD CHLORIDE 0.9% 1,000 ML IV SCH ×3 (03:07→17:14)
[2017-05-22 04:50] VITALS: BP 117/79; RESP 20
[2017-05-22 05:29] LABS: BASOPHIL # 0.1 10^3/ul (0.0-0.1); BASOPHILS % 0.9 % (0.0-2.0); EOSINOPHILS # 0.6 10^3/ul (0.0-0.5); EOSINOPHILS % 9.8 % (0.0-7.0); HEMATOCRIT 34.4 % (37.0-47.0); HEMOGLOBIN 11.2 g/dl (12.0-16.0); LYMPHOCYTES # 1.9 10^3/ul (0.8-2.9); LYMPHOCYTES % 32.1 % (15.0-51.0); MEAN CORPUSCULAR HEMOGLOBIN 26.7 pg (29.0-33.0); MEAN CORPUSCULAR HGB CONC 32.6 g/dl (32.0-37.0); MEAN CORPUSCULAR VOLUME 81.9 fl (82.0-101.0); MEAN PLATELET VOLUME 10.1 fl (7.4-10.4); MONOCYTE # 0.6 10^3/ul (0.3-0.9); NUCLEATED RED BLOOD CELLS% 0.3 /100WBC (0.0-0.0); PLATELET COUNT 337 10^3/UL (140-415); RED CELL DISTRIBUTION WIDTH 15.9 % (11.5-14.5); WHITE BLOOD COUNT 5.8 10^3/ul (4.8-10.8)
[2017-05-22 05:40] LABS: INR 1.12; PROTIME 14.4 Sec (12.2-14.2); PT RATIO 1.1
[2017-05-22 05:41] LABS: PARTIAL THROMBOPLASTIN TIME 32.6 Sec (25.0-35.0)
[2017-05-22] MEDS: PIPER-TAZO 3.375 GM IV (PMX) 100 ML IVPB SCH ×3 (05:46→21:14)
[2017-05-22 05:48] LABS: ALBUMIN 2.9 g/dl (3.3-4.9); BILIRUBIN,INDIRECT 0.2 mg/dl (0-1.1); BILIRUBIN,TOTAL 0.2 mg/dl (0.2-1.3); CALCIUM 8.1 mg/dl (8.4-10.2); CREATININE 0.58 mg/dl (0.44-1.00); POTASSIUM 3.8 mmol/L (3.5-5.1); TOTAL PROTEIN 5.8 g/dl (6.1-8.1)
[2017-05-22 05:51] LABS: MAGNESIUM 1.8 mg/dl (1.7-2.5)
--- NOTE | 2017-05-22 06:32 | RADRPT ---
PROCEDURE: MRI Brain without and with contrast. CLINICAL INDICATION: Metastatic colon cancer, evaluate for intracranial metastasis. TECHNIQUE: An MRI of the brain was performed utilizing the following sequences: Sagittal T1-weigh lexi, axial T2-weighted, axial FLAIR, axial T1, coronal GRE axial diffusion-weighted with ADC mapping . Following the uneventful administration of 10 cc Magnevist, postcontrast axial T1-weighted images and axial FSPGR with reformatted images were obtained. Images were viewed on a PACS workstation. COMPARISON: No prior studies are available for comparison. FINDINGS: No diffusion weighted abnormalities are seen to suggest the presence of acute ischemia or recent inf arct. There is no intracranial hemorrhage, mass effect, or midline shift. No extra-axial fluid col lection is seen. The ventricles and sulci are minimally enlarged indicative of volume loss. There are few scattered foci of T2 and FLAIR hyperintensity in the white matter, which are nonspecif ic in etiology but likely reflect early chronic small vessel ischemic changes. The gradient echo im ages reveal no areas of susceptibility artifact to suggest blood degradation products or abnormal ca lcification. No abnormal intraparenchymal, meningeal or ependymal enhancement is seen. No abnormal intracranial vascular flow voids are noted. The pituitary and sella reveal no abnormali ty. The suprasellar cistern is clear. The visualized paranasal sinuses demonstrate trace scattered mucosal thickening. The mastoid air cells are clear. IMPRESSION: 1. No intracranial mass or enhancing lesion to suggest metastasis. No acute intracranial hemorrhag e or infarction. 2. Minimal presumed chronic small vessel ischemic changes. 3. Minimal generalized cerebral volume loss. RPTAT: HFN .Rohan Higgins MD, MD Date Time Electronically viewed and signed by .Rohan Higgins MD, MD on 05/21/2017 21:45 .N/
[2017-05-22] MEDS: FAMOTIDINE 20 MG TAB PO SCH ×2 (08:26→21:14)
[2017-05-22] MEDS: morphine 2 MG INJ IV PRN ×2 (08:26→14:52)
[2017-05-22 08:30] VITALS: BP 118/72; RESP 18
--- NOTE | 2017-05-22 10:25 | PN ---
Date/Time of Note Date/Time of Note DATE: 05/22/17 TIME: 10:10 Assessment/Plan VTE Prophylaxis VTE Prophylaxis Intervention: SCD's Lines/Catheters IV Catheter Type (from [facility]): Peripheral IV Urinary Cath still in place: No Assessment/Plan Assessment/Plan 47-year-old female with: 1. 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 CAT scan of the chest showing metastatic disease in the chest with pleural seeding likely and malignant bilateral pleural effusions. I discussed the case with Dr. Edwards and also Dr. Ricketts, no need for INSTRUMENT INSPECTOR/ONC as of now. Records from [facility] only showing outpatient colonoscopy procedure still awaiting pathology report if biopsy was done then. Otherwise we will need to do a biopsy as soon as possible. MRI brain within normal. Follow-up further recommendations from Dr. Edwards today. I did update the patient and the patient , they are very emotional and want to be aggressive at this point. Patient and her has been updated this morning, very likely will need a biopsy on this admission. Continue pain control and IV fluids. 2. Possible urinary tract infection based on UA, follow-up on urine cultures, currently on Zosyn. 3. Chronic anemia, likely related to underlying malignancy and also episodes of rectal bleeding. Hemoglobin stable for now. GI consult if needed. Prophylaxis: SCDs for DVT prophylaxis, Pepcid for GI prophylaxis Disposition: Follow-up with Dr. Justin jackson today, likely will need a biopsy on this admission in order to determine pathophysiology, specific immunostains needed by oncology. Subjective 24 Hr Interval Summary Free Text/Dictation Patient remained hemodynamically stable, and comfortable. Unfortunately she does have widely metastatic disease, CAT scan of the chest is showing signs of pleural seeding and bilateral malignant pleural effusions. MRI of the brain okay Records from [facility] only shows outpatient colonoscopy done, it is unclear if biopsies were taken. Likely will need a rebiopsy as oncology will need to send specific stains and renal pathology in order to direct therapy if available. Exam/Review of Systems Vital Signs Vitals Vital Signs Date Time Temp Pulse Resp B/P Pulse Ox O2 Delivery O2 Flow Rate FiO2 05/22/17 08:30 98.6 86 18 118/72 96 05/20/17 22:35 Room Air Intake and Output 05/21/17 05/21/17 05/22/17 15:00 23:00 07:00 Intake Total 500 ml 1380 ml 1400 ml Balance 500 ml 1380 ml 1400 ml Exam Constitutional: alert, frail, oriented Respiratory: diminished breath sounds (Basis bilateral) Cardiovascular: nl pulses, regular rate and rhythm Gastrointestinal: ascites, distended, soft Musculoskeletal: swelling (+1-2 edema ) 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: CRUDE OIL TREATER 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, nl mental status, nl speech, other ( Generalized weakness) Results Result Diagram: 05/22/1744205/22/17442 Results 24 hrs Laboratory Tests Test 05/22/17 04:43 White Blood Count 5.8 Red Blood Count 4.20 Hemoglobin 11.2 L Hematocrit 34.4 L Mean Corpuscular Volume 81.9 L Mean Corpuscular Hemoglobin 26.7 L Mean Corpuscular Hemoglobin Concent 32.6 Red Cell Distribution Width 15.9 H Platelet Count 337 Mean Platelet Volume 10.1 Neutrophils % 47.0 Lymphocytes % 32.1 Monocytes % 10.0 Eosinophils % 9.8 H Basophils % 0.9 Nucleated Red Blood Cells % 0.3 H Neutrophils # (Manual) 3 Lymphocytes # 1.9 Monocytes # 0.6 Eosinophils # 0.6 H Basophils # 0.1 Nucleated Red Blood Cells # 0.0 Prothrombin Time 14.4 H Prothrombin Time Ratio 1.1 INR International Normalized Ratio 1.12 Activated Partial Thromboplast Time 32.6 Sodium Level 136 Potassium Level 3.8 Chloride Level 103 Carbon Dioxide Level 24 Anion Gap 13 Blood Urea Nitrogen 5 L Creatinine 0.58 Glucose Level 85 Calcium Level 8.1 L Phosphorus Level 4.0 Magnesium Level 1.8 Total Bilirubin 0.2 Direct Bilirubin 0.00 Indirect Bilirubin 0.2 Aspartate Amino Transf (AST/SGOT) 37 Alanine Aminotransferase (ALT/SGPT) 24 Alkaline Phosphatase 73 Total Protein 5.8 L Albumin 2.9 L Globulin 2.90 Albumin/Globulin Ratio 1.00 Medications Medications Current Medications Sodium Chloride (NS) 1,000 ml @ 100 mls/hr Q10H IV Last administered on t 05:47; Admin Dose 100 MLS/HR; Start 05/20/17 at 21:07 Ondansetron HCl (Zofran Inj) 4 mg Q6H PRN IV NAUSEA AND/OR VOMITING; Start at 21:30 Acetaminophen (Tylenol Tab) 650 mg Q6H PRN PO PAIN LEVEL 1-3 OR FEVER; Start at 21:30 Acetaminophen/ Hydrocodone Bitart ([place] (5/325)) 1 tab Q6H PRN PO MODERATE PAIN LEVEL 4-6; Start 05/20/17 at 21:30 Acetaminophen/ Hydrocodone Bitart ([place] (5/325)) 2 tab Q6H PRN PO SEVERE PAIN LEVEL 7-10; Start 05/20/17 at 21:30 Morphine Sulfate (morphine) 2 mg Q4H PRN IV SEVERE PAIN LEVEL 7-10 Last administered on 05/22/17 08:26; Admin Dose 2 MG; Start 05/20/17 at 21:30 Docusate Sodium (Colace) 100 mg Q12H PRN PO CONSTIPATION; Start 05/20/17 at 21: 30 Magnesium Hydroxide (Milk Of Mag) 30 ml DAILY PRN PO CONSTIPATION; Start at 21:30 Bisacodyl (Dulcolax Supp) 10 mg DAILY PRN [place] CONSTIPATION; Start 05/20/17 at 21 :30 Famotidine 20 mg 20 mg Q12 PO Last administered on 05/22/17 08:26; Admin Dose 20 MG; Start 05/21/17 at 09:00 Piperacillin Sod/ Tazobactam Sod (Zosyn 3.375gm/ 100 ml (Pmx)) 100 ml @ 200 mls /hr Q8 IVPB Last administered on 05/22/17 05:46; Admin Dose 200 MLS/HR; Start 05/20/17 at 22:00 Procedures Procedures PROCEDURE: CT Chest without contrast. CLINICAL INDICATION: Cancer. Evaluate for metastatic disease. TECHNIQUE: Multiple contiguous helical CT images of the chest were obtained without the administration of intravenous contrast. Coronal and sagittal reformatted images were obtained from the source images. CTDIvol (mGy): 5.65; Total Exam DLP (mGy-cm): 192.0 a. One or more of the following dose reduction techniques were utilized: - Automated exposure control. - Adjustment of the mA and/or kV according to patient size. - Use of iterative reconstruction technique. COMPARISON: CT abdomen/pelvis 05/20/2017. FINDINGS: Limited imaging of the lower neck is unremarkable. The heart is not enlarged. There is no pericardial effusion. There is no mediastinal, hilar or axillary lymphadenopathy. The thoracic aorta is normal in caliber. The pulmonary arteries are not enlarged. Large bilateral layering pleural effusions are present. Numerous tiny solid and ground-glass nodules are seen throughout the lungs, some of which does demonstrate subtle central cavitation. Scattered atelectasis is seen throughout the lungs along with subtle nodular interstitial thickening. Diffuse bronchial wall thickening is present. Limited imaging of the upper abdomen demonstrates ascites and scattered small ill-defined hypodense lesions of the liver. Degenerative changes of the spine are present. Chest wall soft tissues are unremarkable. IMPRESSION: Large bilateral layering pleural effusions. Mild nodular interstitial thickening is also observed. Imaging findings suggest the presence of malignant pleural effusions with pleural carcinomatosis. Numerous tiny solid and ground-glass nodules throughout the lungs, some of which demonstrates subtle central cavitation. Imaging appearance is most concerning for pulmonary metastases. Ascites with scattered ill-defined hypodense lesions throughout the liver concerning for liver metastases seen on recent CT abdomen/pelvis. Please refer to dedicated CT abdomen/pelvis report for additional findings. PROCEDURE: MRI Brain without and with contrast. CLINICAL INDICATION: Metastatic colon cancer, evaluate for intracranial metastasis. TECHNIQUE: An MRI of the brain was performed utilizing the following sequences : Sagittal T1-weighted, axial T2-weighted, axial FLAIR, axial T1, coronal GRE axial diffusion-weighted with ADC mapping. Following the uneventful administration of 10 cc Magnevist, postcontrast axial T1-weighted images and axial FSPGR with reformatted images were obtained. Images were viewed on a PACS workstation. COMPARISON: No prior studies are available for comparison. FINDINGS: No diffusion weighted abnormalities are seen to suggest the presence of acute ischemia or recent infarct. There is no intracranial hemorrhage, mass effect, or midline shift. No extra-axial fluid collection is seen. The ventricles and sulci are minimally enlarged indicative of volume loss. There are few scattered foci of T2 and FLAIR hyperintensity in the white matter , which are nonspecific in etiology but likely reflect early chronic small vessel ischemic changes. The gradient echo images reveal no areas of susceptibility artifact to suggest blood degradation products or abnormal calcification. No abnormal intraparenchymal, meningeal or ependymal enhancement is seen. No abnormal intracranial vascular flow voids are noted. The pituitary and sella reveal no abnormality. The suprasellar cistern is clear. The visualized paranasal sinuses demonstrate trace scattered mucosal thickening. The mastoid air cells are clear. IMPRESSION: 1. No intracranial mass or enhancing lesion to suggest metastasis. No acute intracranial hemorrhage or infarction. 2. Minimal presumed chronic small vessel ischemic changes. 3. Minimal generalized cerebral volume loss. RPTAT: HFN .Rohan Higgins MD, Date Time Electronically viewed and signed by .Rohan Higgins MD, MD on 05/21/2017 21:45 PORTIA TORRE May 22, 2017 10:23
[2017-05-22 14:00] VITALS: BP 120/62; RESP 20
--- NOTE | 2017-05-22 15:30 | PN ---
Date/Time of Note Date/Time of Note DATE: 05/22/17 TIME: 15:29 Assessment/Plan Lines/Catheters IV Catheter Type (from [facility]): Peripheral IV [place] in Place (from [facility]): No Assessment/Plan Assessment/Plan [facility] Progress Note Date of Service: 05/22/2017 Place of service: [facility] second floor [facility] Today's Assessment & Plan: Overall has remained stable. Review of available records from [facility] showed colonoscopy in December 2015 that describes a 5 cm mass arising from the anal area up in the rectum. No mention of biopsy and no available pathology report and the information I was sent over. CT scan of the abdomen and pelvis done during the same time showed no other abnormalities including normal-appearing liver and no mention of any ovarian processes or other foci of masses. Head MRI was negative 05/21/2017. Unfortunately, this appears to be either stage IV anal or rectal malignancy. There may be a role for biopsying the perianal lesion which can be done via sigmoidoscopy. This would be helpful to also see the internal mass and assess whether the patient can benefit from radiation in this region. Once the diagnosis is clarified, the treatment regimen can be tailored for the patient. I again emphasized the fact that surgery has virtually no role in the patient's care and answered all the patient's and 's questions to the best of my ability. They appeared to understand and agreed with the plans. With above assessment, I've recommended the followin. Continue current cares 2. Appreciate gynecologic oncology input and recommend involving gastroenterology for a consultation as well 3. Appreciate and recommend [facility] 4. Obtain old records (would be helpful to asked him if there are any pathology results available) 5. Multidisciplinary tumor board presentation 6. Consideration for clinical trials Thank you very much for having me involved in the care of this very pleasant patient and wonderful family. If you have any questions, please feel free to contact me at [phone]. Nature of presenting problem: High severity Please note that, given the extent number of diagnoses or management options, the extensive amount and/or complexity of data needed to be reviewed, and I risk of complications and/or morbidity or mortality, this qualifies as high complexity type of decision-making. Disclaimer: Inadvertent spelling and grammatical errors are likely due to EHR/ dictation software use and do not reflect on the quality of delivered patient care. Also, please note that the electronic time recorded on this node does not necessarily reflect the actual time of the visit. 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 Review of available records from [facility] showed colonoscopy in December 2015 that describes a 5 cm mass arising from the anal area up in the rectum. No mention of biopsy and no available pathology report and the information I was sent over. CT scan of the abdomen and pelvis done during the same time showed no other abnormalities including normal-appearing liver and no mention of any ovarian processes or other foci of masses. Head MRI was negative 05/21/2017. Comorbidities: 1. Known neoplasm (possibly of colorectal origin; details missing) with no reported prior surgeries, chemotherapy or radiation 2. Moderate bilateral pleural effusions and dependent compressive atelectasis and patchy consolidation in the right middle and right lower lobes. ([facility] CT ) 3. Highly suspicious cystic lesions with a dominant lesion appearing to arise from the right adnexa measuring 10.7 x 15.5 x 14.8 cm, concerning for epithelial neoplasm. ([facility] CT 05/20/17) 4. Questionable soft tissue implant in the right ventral mid abdomen, suspicious for carcinomatosis. ([facility] CT 05/20/17) 5. Moderate volume of loculated ascites. Anasarca. ([facility] CT 05/20/17) 6. Indeterminate 1.4 cm hepatic lesion in the junction of segments 5 and 8 with additional hepatic hypodensities that are too small to further characterize. ([facility] CT 05/20/17) 7. Irregular wall thickening of the mid and distal rectum, which may correspond to the patient's known GI neoplasm. ([facility] CT 05/20/17) 8. Nonspecific bilateral inguinal adenopathy. ([facility] CT 05/20/17) 9. Chronic anemia 10. Possible urinary tract infection Subjective: No major events or complaints; no major or new abd pain and under control with medications; no n/v/d; no sob or cp; + flatus; + BM with incontinence; - activity Objective: Vitals: See below I's & O's: See below Exam: GENERAL: On exam, the patient was lying in bed and appeared to be comfortable and in no acute distress. ABDOMEN: Soft, nontender and protuberant but non-distended. There are no peritoneal signs or guarding. SKIN: Skin appears to be pink and feels warm to touch. NEUROLOGIC: Patient is awake, alert, and follows commands appropriately. Labs: See below Exam/Review of Systems Vital Signs Vitals Vital Signs Date Time Temp Pulse Resp B/P Pulse Ox O2 Delivery O2 Flow Rate FiO2 05/22/17 14:00 98.8 88 20 120/62 94 05/20/17 22:35 Room Air Intake and Output 05/21/17 05/21/17 05/22/17 15:00 23:00 07:00 Intake Total 500 ml 1380 ml 1400 ml Balance 500 ml 1380 ml 1400 ml Results Result Diagram: 05/22/17 0443 05/22/17 0443 AKHIL ESPINOZA M.D. May 22, 2017 15:29
[2017-05-22 20:00] VITALS: BP 117/82; RESP 19
[2017-05-23 02:00] VITALS: BP 118/66; RESP 19
[2017-05-23] MEDS: SOD CHLORIDE 0.9% 1,000 ML IV SCH ×2 (03:37→13:39)
[2017-05-23] MEDS: PIPER-TAZO 3.375 GM IV (PMX) 100 ML IVPB SCH ×3 (05:19→21:52)
[2017-05-23 06:38] LABS: BASOPHIL # 0.1 10^3/ul (0.0-0.1); BASOPHILS % 0.7 % (0.0-2.0); EOSINOPHILS # 0.5 10^3/ul (0.0-0.5); EOSINOPHILS % 7.3 % (0.0-7.0); HEMATOCRIT 37.7 % (37.0-47.0); HEMOGLOBIN 12.2 g/dl (12.0-16.0); LYMPHOCYTES # 2.6 10^3/ul (0.8-2.9); LYMPHOCYTES % 36.7 % (15.0-51.0); MEAN CORPUSCULAR HEMOGLOBIN 26.2 pg (29.0-33.0); MEAN CORPUSCULAR HGB CONC 32.4 g/dl (32.0-37.0); MEAN CORPUSCULAR VOLUME 81.1 fl (82.0-101.0); MEAN PLATELET VOLUME 10.4 fl (7.4-10.4); MONOCYTE # 0.5 10^3/ul (0.3-0.9); MONOCYTES % 6.8 % (0.0-11.0); NEUTROPHILS % 48.2 % (39.0-77.0); NUCLEATED RED BLOOD CELLS% 0.3 /100WBC (0.0-0.0); PLATELET COUNT 391 10^3/UL (140-415); RED BLOOD COUNT 4.65 10^6/ul (4.20-5.40); RED CELL DISTRIBUTION WIDTH 15.7 % (11.5-14.5)
[2017-05-23 06:52] LABS: INR 1.14; PROTIME 14.6 Sec (12.2-14.2); PT RATIO 1.1
[2017-05-23 06:53] LABS: PARTIAL THROMBOPLASTIN TIME 35.7 Sec (25.0-35.0)
[2017-05-23 06:55] LABS: MAGNESIUM 1.8 mg/dl (1.7-2.5); PHOSPHORUS 4.1 mg/dl (2.5-4.9)
[2017-05-23 06:58] LABS: ALBUMIN 3.1 g/dl (3.3-4.9); BILIRUBIN,INDIRECT 0.2 mg/dl (0-1.1); BILIRUBIN,TOTAL 0.2 mg/dl (0.2-1.3); CALCIUM 8.5 mg/dl (8.4-10.2); CREATININE 0.58 mg/dl (0.44-1.00); TOTAL PROTEIN 6.2 g/dl (6.1-8.1)
[2017-05-23 07:45] VITALS: BP 128/84; RESP 16
[2017-05-23] MEDS: morphine 2 MG INJ IV PRN (08:14)
[2017-05-23] MEDS: FAMOTIDINE 20 MG TAB PO SCH ×2 (09:12→21:52)
--- NOTE | 2017-05-23 11:56 | CONS ---
Date/Time of Note Date/Time of Note DATE: 05/23/17 TIME: 11:53 Assessment/Plan Assessment/Plan Additional Assessment/Plan Assessment: * Metastatic rectal/anal CA by history * GI bleeding/hematochezia/related to above * Rule out second primary ovary Plan: * Colonoscopy on Thursday, patient informed of procedure, risks, benefits and alternatives. Agreeable to proceed Consultation Date/Type/Reason Admit Date/Time May 20, 2017 at 18:19 Gastrointestinal: decreased appetite, other (Loose stools), pain (Diffuse abdominal pain) Genitourinary: no complaints Musculoskeletal: no complaints Neurologic: other (Generalized weakness) Psychological: anxiety, depression Past Medical History Medical History: cancer (h/o rectal ca dx 1 year ago) Past Surgical History Past Surgical Hx: no surgical history Social History Alcohol Use: none Smoking Status: Never smoker Drug Use: none Exam/Review of Systems Vital Signs Vitals Vital Signs Date Time Temp Pulse Resp B/P Pulse Ox O2 Delivery O2 Flow Rate FiO2 05/23/17 07:45 98.3 97 16 128/84 89 05/20/17 22:35 Room Air Intake and Output 05/22/17 05/22/17 05/23/17 15:00 23:00 07:00 Intake Total 1920 ml 1720 ml Balance 1920 ml 1720 ml Results Result Diagram: 05/23/17 0455 05/23/17 0455 Results 24 hrs Laboratory Tests Test 05/23/17 04:55 05/23/17 04:56 White Blood Count 7.0 # Red Blood Count 4.65 Hemoglobin 12.2 Hematocrit 37.7 Mean Corpuscular Volume 81.1 L Mean Corpuscular Hemoglobin 26.2 L Mean Corpuscular Hemoglobin Concent 32.4 Red Cell Distribution Width 15.7 H Platelet Count 391 Mean Platelet Volume 10.4 Neutrophils % 48.2 Lymphocytes % 36.7 Monocytes % 6.8 Eosinophils % 7.3 H Basophils % 0.7 Nucleated Red Blood Cells % 0.3 H Neutrophils # (Manual) 3 Lymphocytes # 2.6 Monocytes # 0.5 Eosinophils # 0.5 Basophils # 0.1 Nucleated Red Blood Cells # 0.0 Prothrombin Time 14.6 H Prothrombin Time Ratio 1.1 INR International Normalized Ratio 1.14 Activated Partial Thromboplast Time 35.7 H Sodium Level 137 Potassium Level 4.0 Chloride Level 103 Carbon Dioxide Level 20 L Anion Gap 18 H Blood Urea Nitrogen 3 L Creatinine 0.58 Glucose Level 73 Calcium Level 8.5 Total Bilirubin 0.2 Direct Bilirubin 0.00 Indirect Bilirubin 0.2 Aspartate Amino Transf (AST/SGOT) 43 Alanine Aminotransferase (ALT/SGPT) 24 Alkaline Phosphatase 82 Total Protein 6.2 Albumin 3.1 L Globulin 3.10 Albumin/Globulin Ratio 1.00 Phosphorus Level 4.1 Magnesium Level 1.8 Medications Medications Current Medications Sodium Chloride (NS) 1,000 ml @ 100 mls/hr Q10H IV Last administered on 03:37; Admin Dose 100 MLS/HR; Start 05/20/17 at 21:07 Ondansetron HCl (Zofran Inj) 4 mg Q6H PRN IV NAUSEA AND/OR VOMITING; Start at 21:30 Acetaminophen (Tylenol Tab) 650 mg Q6H PRN PO PAIN LEVEL 1-3 OR FEVER; Start at 21:30 Acetaminophen/ Hydrocodone Bitart ([place] (5/325)) 1 tab Q6H PRN PO MODERATE PAIN LEVEL 4-6; Start 05/20/17 at 21:30 Acetaminophen/ Hydrocodone Bitart ([place] (5/325)) 2 tab Q6H PRN PO SEVERE PAIN LEVEL 7-10; Start 05/20/17 at 21:30 Morphine Sulfate (morphine) 2 mg Q4H PRN IV SEVERE PAIN LEVEL 7-10 Last administered on 05/23/17 08:14; Admin Dose 2 MG; Start 05/20/17 at 21:30 Docusate Sodium (Colace) 100 mg Q12H PRN PO CONSTIPATION; Start 05/20/17 at 21: 30 Magnesium Hydroxide (Milk Of Mag) 30 ml DAILY PRN PO CONSTIPATION; Start at 21:30 Bisacodyl (Dulcolax Supp) 10 mg DAILY PRN [place] CONSTIPATION; Start 05/20/17 at 21 :30 Famotidine 20 mg 20 mg Q12 PO Last administered on 05/23/17 09:12; Admin Dose 20 MG; Start 05/21/17 at 09:00 Piperacillin Sod/ Tazobactam Sod (Zosyn 3.375gm/ 100 ml (Pmx)) 100 ml @ 200 mls /hr Q8 IVPB Last administered on 05/23/17 05:19; Admin Dose 200 MLS/HR; Start 05/20/17 at 22:00 MED HEART MD May 23, 2017 11:56
[2017-05-23] MEDS ORDERED: BISACODYL (EC) 5 MG TAB PO ONE (13:00)
--- NOTE | 2017-05-23 13:20 | PN ---
Date/Time of Note Date/Time of Note DATE: 05/23/17 TIME: 13:16 Assessment/Plan VTE Prophylaxis VTE Prophylaxis Intervention: SCD's Lines/Catheters IV [facility]ter Type (from [facility]): Peripheral IV Central line still needed: No Urinary Cath still in place: No Assessment/Plan Assessment/Plan 1. 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 She will undergo colonoscopy and biopsy in AM. CAT scan of the chest showing metastatic disease in the chest with pleural seeding likely and malignant bilateral pleural effusions. Records from [facility] only showing outpatient colonoscopy procedure still awaiting pathology report if biopsy was done then. MRI brain within normal. Follow-up further recommendations from Dr. Edwards noted on 05/22. Continue pain control and IV fluids. 2. Possible urinary tract infection based on UA, follow-up on urine cultures which are not back yet; currently on Zosyn. WBC WNL 3. Chronic anemia, likely related to underlying malignancy and also episodes of rectal bleeding. Hemoglobin currently. Prophylaxis: SCDs for DVT prophylaxis, Pepcid for GI prophylaxis. Subjective 24 Hr Interval Summary Free Text/Dictation In good spirits today. She has no complaints and states that she is trying to be positive. Constitutional: no complaints Eyes: no complaints ENT: no complaints Respiratory: no complaints Cardiovascular: no complaints Exam/Review of Systems Vital Signs Vitals Vital Signs Date Time Temp Pulse Resp B/P Pulse Ox O2 Delivery O2 Flow Rate FiO2 05/23/17 12:16 2.0 05/23/17 07:45 98.3 97 16 128/84 89 05/20/17 22:35 Room Air Intake and Output 05/22/17 05/22/17 05/23/17 15:00 23:00 07:00 Intake Total 1920 ml 1720 ml Balance 1920 ml 1720 ml Exam Constitutional: alert, oriented Psych: no complaints Head: normocephalic Eyes: nl conjunctiva ENMT: nl external ears & nose Neck: supple Respiratory: clear to auscultation Cardiovascular: regular rate and rhythm Skin: other Results Result Diagram: 05/23/17 0455 05/23/17 0455 Results 24 hrs Laboratory Tests Test 05/23/17 04:55 05/23/17 04:56 White Blood Count 7.0 # Red Blood Count 4.65 Hemoglobin 12.2 Hematocrit 37.7 Mean Corpuscular Volume 81.1 L Mean Corpuscular Hemoglobin 26.2 L Mean Corpuscular Hemoglobin Concent 32.4 Red Cell Distribution Width 15.7 H Platelet Count 391 Mean Platelet Volume 10.4 Neutrophils % 48.2 Lymphocytes % 36.7 Monocytes % 6.8 Eosinophils % 7.3 H Basophils % 0.7 Nucleated Red Blood Cells % 0.3 H Neutrophils # (Manual) 3 Lymphocytes # 2.6 Monocytes # 0.5 Eosinophils # 0.5 Basophils # 0.1 Nucleated Red Blood Cells # 0.0 Prothrombin Time 14.6 H Prothrombin Time Ratio 1.1 INR International Normalized Ratio 1.14 Activated Partial Thromboplast Time 35.7 H Sodium Level 137 Potassium Level 4.0 Chloride Level 103 Carbon Dioxide Level 20 L Anion Gap 18 H Blood Urea Nitrogen 3 L Creatinine 0.58 Glucose Level 73 Calcium Level 8.5 Total Bilirubin 0.2 Direct Bilirubin 0.00 Indirect Bilirubin 0.2 Aspartate Amino Transf (AST/SGOT) 43 Alanine Aminotransferase (ALT/SGPT) 24 Alkaline Phosphatase 82 Total Protein 6.2 Albumin 3.1 L Globulin 3.10 Albumin/Globulin Ratio 1.00 Phosphorus Level 4.1 Magnesium Level 1.8 Medications Medications Current Medications Sodium Chloride (NS) 1,000 ml @ 100 mls/hr Q10H IV Last administered on 03:37; Admin Dose 100 MLS/HR; Start 05/20/17 at 21:07 Ondansetron HCl (Zofran Inj) 4 mg Q6H PRN IV NAUSEA AND/OR VOMITING; Start at 21:30 Acetaminophen (Tylenol Tab) 650 mg Q6H PRN PO PAIN LEVEL 1-3 OR FEVER; Start at 21:30 Acetaminophen/ Hydrocodone Bitart ([place] (5/325)) 1 tab Q6H PRN PO MODERATE PAIN LEVEL 4-6; Start 05/20/17 at 21:30 Acetaminophen/ Hydrocodone Bitart ([place] (5/325)) 2 tab Q6H PRN PO SEVERE PAIN LEVEL 7-10; Start 05/20/17 at 21:30 Morphine Sulfate (morphine) 2 mg Q4H PRN IV SEVERE PAIN LEVEL 7-10 Last administered on 05/23/17 08:14; Admin Dose 2 MG; Start 05/20/17 at 21:30 Docusate Sodium (Colace) 100 mg Q12H PRN PO CONSTIPATION; Start 05/20/17 at 21: 30 Magnesium Hydroxide (Milk Of Mag) 30 ml DAILY PRN PO CONSTIPATION; Start at 21:30 Bisacodyl (Dulcolax Supp) 10 mg DAILY PRN [place] CONSTIPATION; Start 05/20/17 at 21 :30 Famotidine 20 mg 20 mg Q12 PO Last administered on 05/23/17 09:12; Admin Dose 20 MG; Start 05/21/17 at 09:00 Piperacillin Sod/ Tazobactam Sod (Zosyn 3.375gm/ 100 ml (Pmx)) 100 ml @ 200 mls /hr Q8 IVPB Last administered on 05/23/17 05:19; Admin Dose 200 MLS/HR; Start 05/20/17 at 22:00 Magnesium Citrate (Citroma) 300 ml ONCE ONCE PO ; Start 05/23/17 at 17:30; Stop 05/23/17 at 17:31 Polyethylene Glycol (Miralax) 119 gm ONCE ONCE PO ; Start 05/23/17 at 18:30; Stop 05/23/17 at 18:31 ELAINE CHIANG MD May 23, 2017 13:20
[2017-05-23 14:30] VITALS: BP 136/94; RESP 18
[2017-05-23] MEDS ORDERED: MAGNESIUM CITRATE 300 ML BTL PO ONE (17:30)
[2017-05-23] MEDS ORDERED: POLYETHYLENE GLYCOL 3350 119 GM POWDER PO ONE (18:30)
[2017-05-23 20:44] VITALS: BP 130/87; RESP 16
[2017-05-24] VITALS (13 sets, daily range): BP systolic 87–145; BP diastolic 52–70; PULSE 72–92; RESP 14–28
[2017-05-24] MEDS: SOD CHLORIDE 0.9% 1,000 ML IV SCH ×2 (00:51→14:23)
[2017-05-24 05:49] LABS: BASOPHIL # 0.1 10^3/ul (0.0-0.1); BASOPHILS % 0.8 % (0.0-2.0); EOSINOPHILS # 0.5 10^3/ul (0.0-0.5); EOSINOPHILS % 8.6 % (0.0-7.0); HEMATOCRIT 34.6 % (37.0-47.0); LYMPHOCYTES # 1.8 10^3/ul (0.8-2.9); LYMPHOCYTES % 29.3 % (15.0-51.0); MEAN CORPUSCULAR HEMOGLOBIN 25.8 pg (29.0-33.0); MEAN CORPUSCULAR HGB CONC 31.8 g/dl (32.0-37.0); MEAN CORPUSCULAR VOLUME 81.2 fl (82.0-101.0); MEAN PLATELET VOLUME 9.9 fl (7.4-10.4); MONOCYTE # 0.6 10^3/ul (0.3-0.9); MONOCYTES % 9.3 % (0.0-11.0); NEUTROPHILS % 51.7 % (39.0-77.0); PLATELET COUNT 374 10^3/UL (140-415); RED BLOOD COUNT 4.26 10^6/ul (4.20-5.40); RED CELL DISTRIBUTION WIDTH 15.9 % (11.5-14.5); WHITE BLOOD COUNT 6.3 10^3/ul (4.8-10.8)
[2017-05-24] MEDS: PIPER-TAZO 3.375 GM IV (PMX) 100 ML IVPB SCH ×3 (05:55→21:32)
[2017-05-24] MEDS ORDERED: POLYETHYLENE GLYCOL 3350 119 GM POWDER PO ONE (06:00)
[2017-05-24 06:16] LABS: CALCIUM 8.4 mg/dl (8.4-10.2); CREATININE 0.51 mg/dl (0.44-1.00); POTASSIUM 3.6 mmol/L (3.5-5.1)
[2017-05-24] MEDS ORDERED: BISACODYL (EC) 5 MG TAB PO ONE (08:00)
[2017-05-24] MEDS: FAMOTIDINE 20 MG TAB PO SCH ×2 (09:16→21:31)
[2017-05-24] MEDS ORDERED: LIDOCAINE 100 MG SYRINGE ONE (09:57)
[2017-05-24] MEDS ORDERED: PROPOFOL 20 ML ONE (09:57)
[2017-05-24] MEDS ORDERED: FENTAnyl 50 MCG/ML VIAL ONE (09:58)
--- NOTE | 2017-05-24 10:33 | OPPN ---
Date/Time of Note Date/Time of Note DATE: 05/24/17 TIME: 10:27 Proc Note GI Free Text/Dictation Procedure Date: 05/24/2017 Preoperative Diagnosis: Rectal bleeding/history of rectal CA, metastatic disease Postoperative Diagnosis: * Large and no rectal mass.? Anal squamous CA versus rectal adeno CA extending. Biopsies obtained * Extensive infiltration of the rectum to approximately 12 cm with clearing neoplastic tissue. Rule out primary rectal versus squamous cell carcinoma. Biopsies obtained * Otherwise normal colonoscopy to cecum Plan: * Review pathology/oncology-surgery management Procedure Performed: Colonoscopy Surgeon: Med Collazo MD Rigger: None Second Cloth Picker: None Anesthesia/Sedation monitored anesthesia care/Dr Buckner Tourniquet Time: NA Estimated Blood Loss: 50 cc Transfusion Required: No Specimens: Rectum Anus Grafts/Implants: None Tubes/Drains: NA Complications: None Pt. Condition Post Procedure: Stable Disposition: PACU After informed consent, with the patient/relatives understanding the procedure, its indications and potential risks and complications, including but not limited to: Allergic reaction, bleeding, perforation, infection, and after all pertinent questions were answered to the patient's satisfaction, the patient/ relatives signed the witnessed informed consent. Following this, premedication was administered slowly IV push under careful cardiovascular and respiratory monitoring with pulse OXIMETRY, automatic blood pressure, and night monitor. Once the sedative effect was achieved, the patient was placed in the left lateral decubitus position, digital rectal examination was performed. A colonoscope was then introduced and advanced under visual control throughout all segments of the colon including: [the rectum, sigmoid, descending colon, splenic flexure, transverse colon, hepatic flexure, ascending colon and finally reaching the cecum which was clearly identified by transillumination, finger indentation and the ileocecal valve.] Careful examination of the mucosa of the lower gastrointestinal tract both on insertion as well as withdrawal of the instrument disclosed the following findings: Preparation quality: [Adequate], Rectal Examination: The anorectal area was visualized examined and digital rectal examination performed with the following findings: There is a very large rock hard clearly malignant neoplastic mass in the anal area, it is unclear if this mass represents a primary anal squamous cell carcinoma versus extension from rectal adenocarcinoma. Biopsies were obtained in limited fashion of the external portion of the mass. Colonic mucosa: The mucosa of all segments of the colon was carefully examined and showed the following findings: There is extensive infiltration of the circumference of the rectal area to approximately 12 cm with clearly malignant neoplastic tissue which is multinodular extremely friable and hard to the touch. Multiple biopsies were obtained. The remainder of the examined mucosa appears within normal limits. There is no evidence of inflammatory changes, diverticular formation, polyps or other neoplasms, vascular malformation, or any other abnormality.] The instrument was then withdrawn, the patient tolerated the procedure well and was transferred out of the Endoscopy Suite awake and in good condition to continue recovery under observation. Procedure date: May 24, 2017 MED COLLAZO MD May 24, 2017 10:33
--- NOTE | 2017-05-24 12:28 | PN ---
Date/Time of Note Date/Time of Note DATE: 05/24/17 TIME: 12:21 Assessment/Plan Lines/Catheters IV Catheter Type (from Nrs): Peripheral IV [place] in Place (from Nrs): No Assessment/Plan Assessment/Plan [facility] Progress Note Date of Service: 05/24/2017 Place of service: [facility] second floor [facility] Today's Assessment & Plan: Overall has remained stable. Visited with the patient in the preoperative area after her colonoscopy. No new recommendations from surgical standpoint. Previous assessment that applies today: Review of available records from [facility] showed colonoscopy in December 2015 that describes a 5 cm mass arising from the anal area up in the rectum. No mention of biopsy and no available pathology report and the information I was sent over. CT scan of the abdomen and pelvis done during the same time showed no other abnormalities including normal-appearing liver and no mention of any ovarian processes or other foci of masses. Head MRI was negative 05/21/2017. Unfortunately, this appears to be either stage IV anal or rectal malignancy. There may be a role for biopsying the perianal lesion which can be done via sigmoidoscopy. This would be helpful to also see the internal mass and assess whether the patient can benefit from radiation in this region. Once the diagnosis is clarified, the treatment regimen can be tailored for the patient. With above assessment, I've recommended the followin. Continue current cares 2. Appreciate gastroenterology input and await biopsy results 3. Appreciate and recommend following Dr. Ricketts's excellent oncology recommendations 4. Obtain old records (would be helpful to asked him if there are any pathology results available) 5. Multidisciplinary tumor board presentation 6. Consideration for clinical trials Thank you very much for having me involved in the care of this very pleasant patient and wonderful family. If you have any questions, please feel free to contact me at [phone]. Nature of presenting problem: High severity Please note that, given the extent number of diagnoses or management options, the extensive amount and/or complexity of data needed to be reviewed, and I risk of complications and/or morbidity or mortality, this qualifies as high complexity type of decision-making. Disclaimer: Inadvertent spelling and grammatical errors are likely due to EHR/ dictation software use and do not reflect on the quality of delivered patient care. Also, please note that the electronic time recorded on this node does not necessarily reflect the actual time of the visit. 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 Review of available records from [facility] showed colonoscopy in December 2015 that describes a 5 cm mass arising from the anal area up in the rectum. No mention of biopsy and no available pathology report and the information I was sent over. CT scan of the abdomen and pelvis done during the same time showed no other abnormalities including normal-appearing liver and no mention of any ovarian processes or other foci of masses. Head MRI was negative 05/21/2017. S/p colonoscopy [facility] 05/24/17. Comorbidities: 1. Known neoplasm (possibly of colorectal origin; details missing) with no reported prior surgeries, chemotherapy or radiation 2. Moderate bilateral pleural effusions and dependent compressive atelectasis and patchy consolidation in the right middle and right lower lobes. ([facility] CT ) 3. Highly suspicious cystic lesions with a dominant lesion appearing to arise from the right adnexa measuring 10.7 x 15.5 x 14.8 cm, concerning for epithelial neoplasm. ([facility] CT 05/20/17) 4. Questionable soft tissue implant in the right ventral mid abdomen, suspicious for carcinomatosis. ([facility] CT 05/20/17) 5. Moderate volume of loculated ascites. Anasarca. ([facility] CT 05/20/17) 6. Indeterminate 1.4 cm hepatic lesion in the junction of segments 5 and 8 with additional hepatic hypodensities that are too small to further characterize. ([facility] CT 05/20/17) 7. Irregular wall thickening of the mid and distal rectum, which may correspond to the patient's known GI neoplasm. ([facility] CT 05/20/17) 8. Nonspecific bilateral inguinal adenopathy. ([facility] CT 05/20/17) 9. Chronic anemia 10. Possible urinary tract infection Subjective: No major events or complaints other than above; no major or new abd pain and under control with medications; no n/v/d; no sob or cp; + flatus; + BM with incontinence; - activity Objective: Vitals: See below I's & O's: See below Exam: GENERAL: On exam, the patient was lying in bed and appeared to be comfortable and in no acute distress. ABDOMEN: Soft, nontender and protuberant but non-distended. There are no peritoneal signs or guarding. SKIN: Skin appears to be pink and feels warm to touch. NEUROLOGIC: Patient is awake, alert, and follows commands appropriately. Labs: See below Exam/Review of Systems Vital Signs Vitals Vital Signs Date Time Temp Pulse Resp B/P Pulse Ox O2 Delivery O2 Flow Rate FiO2 05/24/17 11:07 84 18 100/67 95 Nasal Cannula 2.0 05/24/17 10:37 98.2 Intake and Output 05/23/17 05/23/17 05/24/17 15:00 23:00 07:00 Intake Total 900 ml 1200 ml 1360 ml Balance 900 ml 1200 ml 1360 ml Results Result Diagram: 05/24/17 0445 05/24/17 0445 AKHIL ESPINOZA M.D. May 24, 2017 12:28
[2017-05-24] MEDS: morphine 2 MG INJ IV PRN (18:45)
--- NOTE | 2017-05-24 21:39 | CONS ---
Date/Time of Note Date/Time of Note DATE: 05/24/17 TIME: 21:33 Assessment/Plan Assessment/Plan Chief Complaint/Hosp Course 47 yo with #Metastatic ca with likely malignancy pleural effusions, pulmonary mets, pleural carcinomatosis, hepatic mets , cystic lesions with a dominant lesion appearing to arise from the right adnexa measuring 10.7 x 15.5 x 14.8 cm, rectal wall thickening and bilateral inguinal adenopathy. -pt is s/p colonoscopy. will f/u pathology -elevated CEA and CA 125 make either GI primary or Ovarian primary a possibility. Pt may also have 2 primaries -agree with [facility] consult -if a diagnosis is not able to be made we will need to rebiopsy the patient -if rectal primary , will need to check KRAS mutation status and for Microsatellite Instability as these results can help to guide treatment -Brain MRI negative for malignancy #Anemia - likely 2/2 blood loss and iron deficiency -continue start IV iron at this time #shortness of breath 2/2 Bilateral Pleural Effusions -will order thoracentesis. -will check cytology on pleural fluid #UTI -continue antibiotics Problems: (1) Ovarian cystic mass Qualifiers: Laterality: unspecified laterality Qualified Code: N83.209 - Cyst of ovary , unspecified laterality (2) Pleural effusion Status: Acute (3) Colon carcinoma Status: Acute Consultation Date/Type/Reason Admit Date/Time May 20, 2017 at 18:19 Initial Consult Date 05/22/17 Type of Consultation: Oncology Reason for Consultation metastatic cancer Referring Provider: PORTIA TORRE 24 HR Interval Summary Free Text/Dictation pt c/o shortness of breath and abdominal distension Exam/Review of Systems Vital Signs Vitals Vital Signs Date Time Temp Pulse Resp B/P Pulse Ox O2 Delivery O2 Flow Rate FiO2 05/24/17 14:27 98.2 76 18 109/58 93 05/24/17 11:07 Nasal Cannula 2.0 Intake and Output 05/23/17 05/23/17 05/24/17 15:00 23:00 07:00 Intake Total 900 ml 1200 ml 1360 ml Balance 900 ml 1200 ml 1360 ml Exam Constitutional: alert, distress, frail, oriented Psych: no complaints Head: normocephalic Eyes: nl conjunctiva ENMT: nl external ears & nose Neck: supple Respiratory: crackles/rales, diminished breath sounds, intercostal retraction, labored breathing Cardiovascular: nl pulses, regular rate and rhythm Gastrointestinal: distended, soft Musculoskeletal: nl extremities to inspection Extremities: normal pulses Results Result Diagram: 05/24/1744405/24/17444 Results 24 hrs Laboratory Tests Test 05/24/17 04:45 White Blood Count 6.3 Red Blood Count 4.26 Hemoglobin 11.0 L Hematocrit 34.6 L Mean Corpuscular Volume 81.2 L Mean Corpuscular Hemoglobin 25.8 L Mean Corpuscular Hemoglobin Concent 31.8 L Red Cell Distribution Width 15.9 H Platelet Count 374 Mean Platelet Volume 9.9 Neutrophils % 51.7 Lymphocytes % 29.3 Monocytes % 9.3 Eosinophils % 8.6 H Basophils % 0.8 Nucleated Red Blood Cells % 0.0 Neutrophils # (Manual) 3 Lymphocytes # 1.8 Monocytes # 0.6 Eosinophils # 0.5 Basophils # 0.1 Nucleated Red Blood Cells # 0.0 Sodium Level 138 Potassium Level 3.6 Chloride Level 103 Carbon Dioxide Level 20 L Anion Gap 19 H Blood Urea Nitrogen 2 L Creatinine 0.51 Glucose Level 74 Calcium Level 8.4 Medications Medications Current Medications Ondansetron HCl (Zofran Inj) 4 mg Q6H PRN IV NAUSEA AND/OR VOMITING; Start at 21:30 Acetaminophen (Tylenol Tab) 650 mg Q6H PRN PO PAIN LEVEL 1-3 OR FEVER; Start at 21:30 Acetaminophen/ Hydrocodone Bitart ([place] (5/325)) 1 tab Q6H PRN PO MODERATE PAIN LEVEL 4-6; Start 05/20/17 at 21:30 Acetaminophen/ Hydrocodone Bitart ([place] (5/325)) 2 tab Q6H PRN PO SEVERE PAIN LEVEL 7-10; Start 05/20/17 at 21:30 Morphine Sulfate (morphine) 2 mg Q4H PRN IV SEVERE PAIN LEVEL 7-10 Last administered on 05/24/17t 18:45; Admin Dose 2 MG; Start 05/20/17 at 21:30 Docusate Sodium (Colace) 100 mg Q12H PRN PO CONSTIPATION; Start 05/20/17 at 21: 30 Magnesium Hydroxide (Milk Of Mag) 30 ml DAILY PRN PO CONSTIPATION; Start at 21:30 Bisacodyl (Dulcolax Supp) 10 mg DAILY PRN [place] CONSTIPATION; Start 05/20/17 at 21 :30 Famotidine 20 mg 20 mg Q12 PO Last administered on 05/24/17 21:31; Admin Dose 20 MG; Start 05/21/17 at 09:00 Piperacillin Sod/ Tazobactam Sod (Zosyn 3.375gm/ 100 ml (Pmx)) 100 ml @ 200 mls /hr Q8 IVPB Last administered on 05/24/17 21:32; Admin Dose 200 MLS/HR; Start 05/20/17 at 22:00 ROSENDA MERCADO M.D. May 24, 2017 21:38
--- NOTE | 2017-05-24 23:43 | PN ---
Date/Time of Note Date/Time of Note DATE: 05/24/17 TIME: 23:40 Assessment/Plan VTE Prophylaxis VTE Prophylaxis Intervention: ambulation, SCD's Lines/Catheters IV Catheter Type (from Nrsg): Peripheral IV Central line still needed: No Urinary Cath still in place: No Assessment/Plan Assessment/Plan 1. 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 Colonoscopy and biopsy done today. CAT scan of the chest showing metastatic disease in the chest with pleural seeding likely and malignant bilateral pleural effusions. Records from [facility] only showing outpatient colonoscopy procedure still awaiting pathology report if biopsy was done then. MRI brain within normal. Continue pain control and d/c IV fluids as she is tolerating a diet. CT-guided thoracentesis is scheduled for tomorrow. 2. Possible urinary tract infection based on UA, follow-up on urine cultures which are not back yet; currently on Zosyn. WBC WNL 3. Chronic anemia, likely related to underlying malignancy and also episodes of rectal bleeding. Hemoglobin currently. Prophylaxis: SCDs for DVT prophylaxis, Pepcid for GI prophylaxis. Subjective 24 Hr Interval Summary Free Text/Dictation Tolerated the colonoscopy without difficulty. Biopsies of the rectal mass taken. The patient was able to tolerate regualr diet after the procedure. Constitutional: no complaints Exam/Review of Systems Vital Signs Vitals Vital Signs Date Time Temp Pulse Resp B/P Pulse Ox O2 Delivery O2 Flow Rate FiO2 05/24/17 20:00 Nasal Cannula 2.0 05/24/17 14:27 98.2 76 18 109/58 93 Intake and Output 05/23/17 05/23/17 05/24/17 15:00 23:00 07:00 Intake Total 900 ml 1200 ml 1360 ml Balance 900 ml 1200 ml 1360 ml Exam Constitutional: alert, oriented Psych: no complaints Head: normocephalic Eyes: nl conjunctiva ENMT: nl external ears & nose Neck: supple Respiratory: clear to auscultation Cardiovascular: regular rate and rhythm Gastrointestinal: distended Extremities: normal pulses 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: [employer] 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 Results Result Diagram: 05/24/17 0445 05/24/17444 Results 24 hrs Laboratory Tests Test 05/24/17 04:45 White Blood Count 6.3 Red Blood Count 4.26 Hemoglobin 11.0 L Hematocrit 34.6 L Mean Corpuscular Volume 81.2 L Mean Corpuscular Hemoglobin 25.8 L Mean Corpuscular Hemoglobin Concent 31.8 L Red Cell Distribution Width 15.9 H Platelet Count 374 Mean Platelet Volume 9.9 Neutrophils % 51.7 Lymphocytes % 29.3 Monocytes % 9.3 Eosinophils % 8.6 H Basophils % 0.8 Nucleated Red Blood Cells % 0.0 Neutrophils # (Manual) 3 Lymphocytes # 1.8 Monocytes # 0.6 Eosinophils # 0.5 Basophils # 0.1 Nucleated Red Blood Cells # 0.0 Sodium Level 138 Potassium Level 3.6 Chloride Level 103 Carbon Dioxide Level 20 L Anion Gap 19 H Blood Urea Nitrogen 2 L Creatinine 0.51 Glucose Level 74 Calcium Level 8.4 Medications Medications Current Medications Ondansetron HCl (Zofran Inj) 4 mg Q6H PRN IV NAUSEA AND/OR VOMITING; Start at 21:30 Acetaminophen (Tylenol Tab) 650 mg Q6H PRN PO PAIN LEVEL 1-3 OR FEVER; Start at 21:30 Acetaminophen/ Hydrocodone Bitart ([place] (5/325)) 1 tab Q6H PRN PO MODERATE PAIN LEVEL 4-6; Start 05/20/17 at 21:30 Acetaminophen/ Hydrocodone Bitart ([place] (5/325)) 2 tab Q6H PRN PO SEVERE PAIN LEVEL 7-10; Start 05/20/17 at 21:30 Morphine Sulfate (morphine) 2 mg Q4H PRN IV SEVERE PAIN LEVEL 7-10 Last administered on 05/24/17 18:45; Admin Dose 2 MG; Start 05/20/17 at 21:30 Docusate Sodium (Colace) 100 mg Q12H PRN PO CONSTIPATION; Start 05/20/17 at 21: 30 Magnesium Hydroxide (Milk Of Mag) 30 ml DAILY PRN PO CONSTIPATION; Start at 21:30 Bisacodyl (Dulcolax Supp) 10 mg DAILY PRN [place] CONSTIPATION; Start 05/20/17 at 21 :30 Famotidine 20 mg 20 mg Q12 PO Last administered on 05/24/17 21:31; Admin Dose 20 MG; Start 05/21/17 at 09:00 Piperacillin Sod/ Tazobactam Sod (Zosyn 3.375gm/ 100 ml (Pmx)) 100 ml @ 200 mls /hr Q8 IVPB Last administered on 05/24/17t 21:32; Admin Dose 200 MLS/HR; Start 05/20/17 at 22:00 ELAINE CHIANG MD May 24, 2017 23:43
[2017-05-25] VITALS (8 sets, daily range): BP systolic 103–124; BP diastolic 70–80; RESP 18–24
[2017-05-25] MEDS: morphine 2 MG INJ IV PRN ×4 (04:51→21:43)
[2017-05-25] MEDS: PIPER-TAZO 3.375 GM IV (PMX) 100 ML IVPB SCH ×3 (05:31→21:43)
[2017-05-25] MEDS: FAMOTIDINE 20 MG TAB PO SCH ×2 (09:00→20:58)
[2017-05-25] MEDS ORDERED: LIDOCAINE 1% (MPF) 5 ML VIAL ONE (09:54)
--- NOTE | 2017-05-25 10:38 | CONS ---
Date/Time of Note Date/Time of Note DATE: 05/25/17 TIME: 10:37 Assessment/Plan Assessment/Plan Chief Complaint/Hosp Course 47 yo with #Metastatic ca with likely malignancy pleural effusions, pulmonary mets, pleural carcinomatosis, hepatic mets , cystic lesions with a dominant lesion appearing to arise from the right adnexa measuring 10.7 x 15.5 x 14.8 cm, rectal wall thickening and bilateral inguinal adenopathy. -pt is s/p colonoscopy. will f/u pathology -elevated CEA and CA 125 make either GI primary or Ovarian primary a possibility. Pt may also have 2 primaries -agree with [facility] consult -if a diagnosis is not able to be made we will need to rebiopsy the patient -if rectal primary , will need to check KRAS mutation status and for Microsatellite Instability as these results can help to guide treatment -Brain MRI negative for malignancy #Anemia - likely 2/2 blood loss and iron deficiency -Hg stable at 11 -continue start IV iron at this time #shortness of breath 2/2 Bilateral Pleural Effusions -will order thoracentesis. -will check cytology on pleural fluid #UTI -continue antibiotics Problems: (1) Ovarian cystic mass Qualifiers: Laterality: unspecified laterality Qualified Code: N83.209 - Cyst of ovary , unspecified laterality (2) Pleural effusion Status: Acute (3) Colon carcinoma Status: Acute Problems: Consultation Date/Type/Reason Admit Date/Time May 20, 2017 at 18:19 Initial Consult Date 05/22/17 Type of Consultation: Oncology Referring Provider: PORTIA TORRE Exam/Review of Systems Vital Signs Vitals Vital Signs Date Time Temp Pulse Resp B/P Pulse Ox O2 Delivery O2 Flow Rate FiO2 05/25/17 10:27 Nasal Cannula 3.0 05/25/17 03:01 98.3 93 19 112/71 93 Intake and Output 05/24/17 05/24/17 05/25/17 15:00 23:00 07:00 Intake Total 1150 ml 1300 ml 350 ml Balance 1150 ml 1300 ml 350 ml Results Result Diagram: 05/24/17 0445 05/24/17 0445 Medications Medications Current Medications Ondansetron HCl (Zofran Inj) 4 mg Q6H PRN IV NAUSEA AND/OR VOMITING; Start at 21:30 Acetaminophen (Tylenol Tab) 650 mg Q6H PRN PO PAIN LEVEL 1-3 OR FEVER; Start at 21:30 Acetaminophen/ Hydrocodone Bitart ([place] (5/325)) 1 tab Q6H PRN PO MODERATE PAIN LEVEL 4-6; Start 05/20/17 at 21:30 Acetaminophen/ Hydrocodone Bitart ([place] (5/325)) 2 tab Q6H PRN PO SEVERE PAIN LEVEL 7-10; Start 05/20/17 at 21:30 Morphine Sulfate (morphine) 2 mg Q4H PRN IV SEVERE PAIN LEVEL 7-10 Last administered on 05/25/17 04:51; Admin Dose 2 MG; Start 05/20/17 at 21:30 Docusate Sodium (Colace) 100 mg Q12H PRN PO CONSTIPATION; Start 05/20/17 at 21: 30 Magnesium Hydroxide (Milk Of Mag) 30 ml DAILY PRN PO CONSTIPATION; Start at 21:30 Bisacodyl (Dulcolax Supp) 10 mg DAILY PRN [place] CONSTIPATION; Start 05/20/17 at 21 :30 Famotidine 20 mg 20 mg Q12 PO Last administered on 05/24/17 21:31; Admin Dose 20 MG; Start 05/21/17 at 09:00 Piperacillin Sod/ Tazobactam Sod (Zosyn 3.375gm/ 100 ml (Pmx)) 100 ml @ 200 mls /hr Q8 IVPB Last administered on 05/25/17 05:31; Admin Dose 200 MLS/HR; Start 05/20/17 at 22:00 ROSENDA MERCADO M.D. May 25, 2017 10:38
--- NOTE | 2017-05-25 13:20 | PN ---
Date/Time of Note Date/Time of Note DATE: 05/25/17 TIME: 13:14 Assessment/Plan VTE Prophylaxis VTE Prophylaxis Intervention: SCD's Lines/Catheters IV C[facility]ter Type (from [facility]): Peripheral IV Urinary Cath still in place: No Assessment/Plan Assessment/Plan 47-year-old female with: 1. 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 CAT scan of the chest showing metastatic disease in the chest with pleural seeding likely and malignant bilateral pleural effusions. Records from [facility] only showing outpatient colonoscopy procedure still awaiting pathology report if biopsy was done then. MRI brain within normal. Colonoscopy and biopsy done yesterday by GI, pathology pending. Left thoracentesis done today with removal of 1.5 L, cytology pending. Follow- up chest x-ray pending Continue pain control and d/c IV fluids as she is tolerating a diet. 2. Possible urinary tract infection based on UA, follow-up on urine cultures which are not back yet; currently on Zosyn. WBC WNL 3. Chronic anemia, likely related to underlying malignancy and also episodes of rectal bleeding. Hemoglobin stable currently. Prophylaxis: SCDs for DVT prophylaxis, Pepcid for GI prophylaxis. Disposition: Follow-up on cytology from pleural fluid, pathology from rectal mass biopsy, follow-up further recommendations depending on results from biopsies in the pleural fluid. Continue supportive care. Subjective 24 Hr Interval Summary Free Text/Dictation Status post thoracentesis, left-sided, removal of 1.5 L Patient with some pleuritic pain post-thoracentesis. She reports she feels better. Follow-up chest x-ray pending. Exam/Review of Systems Vital Signs Vitals Vital Signs Date Time Temp Pulse Resp B/P Pulse Ox O2 Delivery O2 Flow Rate FiO2 05/25/17 10:58 98.1 94 18 110/72 93 05/25/17 10:27 Nasal Cannula 3.0 Intake and Output 05/24/17 05/24/17 05/25/17 15:00 23:00 07:00 Intake Total 1150 ml 1300 ml 350 ml Balance 1150 ml 1300 ml 350 ml Exam Constitutional: alert, frail, oriented Respiratory: diminished breath sounds (Bilateral bases.), normal air movement Cardiovascular: nl pulses, regular rate and rhythm Gastrointestinal: ascites (Loculated on CAT scan), distended, soft Musculoskeletal: nl extremities to inspection, swelling (No edema) Extremities: normal pulses, other (No edema clubbing or cyanosis) 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: SUPERINTENDENT MARINE 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, lethargic, nl mental status, nl speech, other (General weakness) Results Result Diagram: 05/24/1744405/24/17444 Results 24 hrs Laboratory Tests Test 05/25/17 09:45 Body Fluid Type Pending Body Fluid Lactate Dehydrogenase Medications Medications Current Medications Ondansetron HCl (Zofran Inj) 4 mg Q6H PRN IV NAUSEA AND/OR VOMITING; Start at 21:30 Acetaminophen (Tylenol Tab) 650 mg Q6H PRN PO PAIN LEVEL 1-3 OR FEVER; Start at 21:30 Acetaminophen/ Hydrocodone Bitart ([place] (5/325)) 1 tab Q6H PRN PO MODERATE PAIN LEVEL 4-6; Start 05/20/17 at 21:30 Acetaminophen/ Hydrocodone Bitart ([place] (5/325)) 2 tab Q6H PRN PO SEVERE PAIN LEVEL 7-10; Start 05/20/17 at 21:30 Morphine Sulfate (morphine) 2 mg Q4H PRN IV SEVERE PAIN LEVEL 7-10 Last administered on 05/25/17 12:03; Admin Dose 2 MG; Start 05/20/17 at 21:30 Docusate Sodium (Colace) 100 mg Q12H PRN PO CONSTIPATION; Start 05/20/17 at 21: 30 Magnesium Hydroxide (Milk Of Mag) 30 ml DAILY PRN PO CONSTIPATION; Start at 21:30 Bisacodyl (Dulcolax Supp) 10 mg DAILY PRN [place] CONSTIPATION; Start 05/20/17 at 21 :30 Famotidine 20 mg 20 mg Q12 PO Last administered on 05/24/17 21:31; Admin Dose 20 MG; Start 05/21/17 at 09:00 Piperacillin Sod/ Tazobactam Sod (Zosyn 3.375gm/ 100 ml (Pmx)) 100 ml @ 200 mls /hr Q8 IVPB Last administered on 05/25/17 05:31; Admin Dose 200 MLS/HR; Start 8/16/17 at 22:00 PORTIA TORRE May 25, 2017 13:19
[2017-05-25 13:39] LABS: FLUID TYPE THORACENTESIS FLUID
--- NOTE | 2017-05-25 14:38 | RADRPT ---
PROCEDURE: XR Chest. CLINICAL INDICATION: Status post left thoracentesis TECHNIQUE: Single frontal view of the chest was obtained COMPARISON: 05/25/2017 10:18 a.m. FINDINGS: See impression. IMPRESSION: Status post left thoracentesis with interval decrease in size of a left pleural effusion, which is n ow small. Persistent right pleural effusion and basilar atelectasis. Otherwise, no convincing inte rval change. RPTAT: QQ Physician Karo Date Time Electronically viewed and signed by Red Prater Physician on 05/25/2017 14:38 /
--- NOTE | 2017-05-25 14:54 | RADRPT ---
PROCEDURE: US guided left thoracentesis. CLINICAL INDICATION: Shortness of breath. Left pleural effusion. TECHNIQUE: Prior to the procedure, informed consent was obtained. The risks, benefits, and alternatives were e xplained to the patient or the patient's family, including but not limited to bleeding, infection, p ain, visceral or vascular damage, shock, pneumothorax, chest tube placement, air embolism, and . The patient or the patient's family understood the risks and the alternatives and wished to proce ed with the study. Informed written consent was obtained. A procedural pause was performed. The patient's name, date of , and procedure to be performed were verified. Ultrasound of the left hemithorax was performed in the axial and sagittal planes. A left pleural eff usion is noted. Utilizing ultrasound guidance, optimal location for entry to the pleural cavity was ascertained. The overlying skin was prepped and draped in the usual sterile fashion. Approximately 10 ml of 1% Xylocaine was injected locally for pain control. Using ultrasound guidance, a 5-Yoruba Yueh catheter was introduced into the left pleural space without difficulty. Fluid was aspirated. COMPARISON: None. FINDINGS: Initial ultrasound demonstrates fluid in the left pleural space. Approximately 1.5 liters of serous fluid was aspirated and sent to the laboratory. IMPRESSION: 1. Satisfactory ultrasound-guided left thoracentesis. RPTAT: QQ .Frankie Mccullough MD, Date Time Electronically viewed and signed by .Frankie Mccullough MD, on 05/25/2017 14:53 .R/
[2017-05-25 15:44] LABS: ADD UMIC YES; UR AMORPHOUS CRYSTAL FEW /HPF (NONE SEEN); UR ASCORBIC ACID NEGATIVE (NEGATIVE); UR BACTERIA FEW /HPF (NONE SEEN); UR BILIRUBIN (Dip) NEGATIVE (NEGATIVE); UR BLOOD (Dip) 2+ mg/dL (NEGATIVE); UR CLARITY CLOUDY (CLEAR); UR COLOR YELLOW (YELLOW); UR GLUCOSE (Dip) NEGATIVE (NEGATIVE); UR KETONES (Dip) 1+ mg/dL (NEGATIVE); UR LEUKOCYTE ESTERASE (Dip) 2+ Leu/ul (NEGATIVE); UR MUCUS FEW /HPF (NONE SEEN); UR NITRITE (Dip) NEGATIVE (NEGATIVE); UR RBC 78 /HPF (0-5); UR SPECIFIC GRAVITY (Dip) 1.019 (1.003-1.030); UR TOTAL PROTEIN (Dip) 2+ mg/dl (NEGATIVE); UR UROBILINOGEN (Dip) NEGATIVE (NEGATIVE)
--- NOTE | 2017-05-25 15:48 | RADRPT ---
PROCEDURE: XR Chest. CLINICAL INDICATION: Status post thoracentesis TECHNIQUE: Single portable view of the chest was obtained COMPARISON: US 05/25/2017; CT CHEST 05/21/2017 FINDINGS: There is decreased left pleural effusion.. There is increased lucency in the left lateral chest wall which may represent a skin fold versus a small pneumothorax. There is a moderate right pleural eff usion. There are bibasilar atelectatic changes. RPTAT:AA IMPRESSION: Possible skin fold versus small left-sided pneumothorax status post thoracentesis. Follow-up will b e obtained in 2 hours. .Jamie Ross MD, MD Date Time Electronically viewed and signed by .Jamie Ross MD, MD on 05/25/2017 15:48 .S/
[2017-05-26] MEDS: morphine 2 MG INJ IV PRN ×2 (02:19→15:42)
[2017-05-26 03:01] VITALS: BP 111/70; RESP 21
[2017-05-26 05:30] LABS: BASOPHILS % 0.7 % (0.0-2.0); EOSINOPHILS # 0.4 10^3/ul (0.0-0.5); EOSINOPHILS % 6.7 % (0.0-7.0); HEMATOCRIT 33.8 % (37.0-47.0); LYMPHOCYTES # 1.6 10^3/ul (0.8-2.9); LYMPHOCYTES % 27.7 % (15.0-51.0); MEAN CORPUSCULAR HEMOGLOBIN 25.9 pg (29.0-33.0); MEAN CORPUSCULAR HGB CONC 32.5 g/dl (32.0-37.0); MEAN CORPUSCULAR VOLUME 79.7 fl (82.0-101.0); MEAN PLATELET VOLUME 9.8 fl (7.4-10.4); MONOCYTE # 0.4 10^3/ul (0.3-0.9); MONOCYTES % 7.1 % (0.0-11.0); NEUTROPHILS % 57.5 % (39.0-77.0); PLATELET COUNT 365 10^3/UL (140-415); RED BLOOD COUNT 4.24 10^6/ul (4.20-5.40); RED CELL DISTRIBUTION WIDTH 16.1 % (11.5-14.5); WHITE BLOOD COUNT 5.9 10^3/ul (4.8-10.8)
[2017-05-26] MEDS: PIPER-TAZO 3.375 GM IV (PMX) 100 ML IVPB SCH (05:34)
[2017-05-26 05:47] LABS: CALCIUM 8.2 mg/dl (8.4-10.2); CREATININE 0.57 mg/dl (0.44-1.00); POTASSIUM 3.8 mmol/L (3.5-5.1)
[2017-05-26 05:50] LABS: MAGNESIUM 1.8 mg/dl (1.7-2.5); PHOSPHORUS 3.7 mg/dl (2.5-4.9)
[2017-05-26 08:00] VITALS: BP 110/63; RESP 18
[2017-05-26] MEDS: FAMOTIDINE 20 MG TAB PO SCH ×2 (09:29→21:06)
--- NOTE | 2017-05-26 12:13 | PN ---
Date/Time of Note Date/Time of Note DATE: 05/26/17 TIME: 11:47 Assessment/Plan VTE Prophylaxis VTE Prophylaxis Intervention: ambulation, SCD's Lines/Catheters IV Catheter Type (from [facility]): Saline Lock Urinary Cath still in place: No Assessment/Plan Assessment/Plan 47-year-old female with: 1. 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 CAT scan of the chest showing metastatic disease in the chest with pleural seeding likely and malignant bilateral pleural effusions. MRI brain within normal. Records from [facility] only showing outpatient colonoscopy procedure, no biopsy was done then. Colonoscopy and biopsy done at [facility] 05/24 and pathology still pending. Left thoracentesis done 05/25 with removal of 1.5 L, cytology still pending. Follow-up chest x-ray stable Continue pain control and d/c IV fluids as she is tolerating a diet. 2. Possible urinary tract infection based on UA, follow-up, Urine cx negative and patient did get 7 days of Zosyn empirically anyway. WBC remains WNL. D/c Zosyn today. 3. Chronic anemia, likely related to underlying malignancy and also episodes of rectal bleeding. Hemoglobin stable currently@ 11 . Prophylaxis: SCDs for DVT prophylaxis, Pepcid for GI prophylaxis. Disposition: Follow-up on cytology from pleural fluid and pathology from rectal mass biopsy, follow-up further recommendations from Oncologydepending on results from biopsy and cytology from the pleural fluid. Continue supportive care. Subjective 24 Hr Interval Summary Free Text/Dictation Patient doing better today, breathing better but pathology still pending Afebrile and d/c zosyn today D/c plan will be discussed with Oncology Exam/Review of Systems Vital Signs Vitals Vital Signs Date Time Temp Pulse Resp B/P Pulse Ox O2 Delivery O2 Flow Rate FiO2 05/26/17 08:00 98.7 85 18 110/63 98 05/25/17 20:00 Nasal Cannula 3.0 Intake and Output 05/25/17 05/25/17 05/26/17 15:00 23:00 07:00 Intake Total 1000 ml 400 ml Balance 1000 ml 400 ml Exam Constitutional: alert, frail, oriented, other (thin) Respiratory: diminished breath sounds (bilaterally ), normal air movement Cardiovascular: nl pulses, regular rate and rhythm Gastrointestinal: ascites (loculated ), distended, soft Musculoskeletal: nl extremities to inspection, nl gait and stance Extremities: normal pulses, other (no edema, clubbing or cyanosis ) 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: COMPENSATION DIRECTOR 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, nl mental status, nl speech, nl strength Results Result Diagram: 05/26/17 0435 05/26/17 0435 Results 24 hrs Laboratory Tests Test 05/25/17 14:15 05/26/17 04:35 Urine Color YELLOW Urine Clarity CLOUDY A Urine pH 6.0 Urine Specific [place] 1.019 Urine Ketones 1+ H Urine Nitrite NEGATIVE Urine Bilirubin NEGATIVE Urine Urobilinogen NEGATIVE Urine Leukocyte Esterase 2+ H Urine Microscopic RBC 78 H Urine Microscopic WBC 144 H Urine Amorphous Crystals FEW A Urine Bacteria FEW A Urine Mucus FEW A Urine Hemoglobin 2+ H Urine Glucose NEGATIVE Urine Total Protein 2+ H White Blood Count 5.9 Red Blood Count 4.24 Hemoglobin 11.0 L Hematocrit 33.8 L Mean Corpuscular Volume 79.7 L Mean Corpuscular Hemoglobin 25.9 L Mean Corpuscular Hemoglobin Concent 32.5 Red Cell Distribution Width 16.1 H Platelet Count 365 Mean Platelet Volume 9.8 Neutrophils % 57.5 Lymphocytes % 27.7 Monocytes % 7.1 Eosinophils % 6.7 Basophils % 0.7 Nucleated Red Blood Cells % 0.0 Neutrophils # (Manual) 3 Lymphocytes # 1.6 Monocytes # 0.4 Eosinophils # 0.4 Basophils # 0.0 Nucleated Red Blood Cells # 0.0 Sodium Level 134 L Potassium Level 3.8 Chloride Level 103 Carbon Dioxide Level 25 Anion Gap 10 # Blood Urea Nitrogen 5 L Creatinine 0.57 Glucose Level 120 # Calcium Level 8.2 L Phosphorus Level 3.7 Magnesium Level 1.8 Medications Medications Current Medications Ondansetron HCl (Zofran Inj) 4 mg Q6H PRN IV NAUSEA AND/OR VOMITING; Start at 21:30 Acetaminophen (Tylenol Tab) 650 mg Q6H PRN PO PAIN LEVEL 1-3 OR FEVER; Start at 21:30 Acetaminophen/ Hydrocodone Bitart ([place] (5/325)) 1 tab Q6H PRN PO MODERATE PAIN LEVEL 4-6; Start 05/20/17 at 21:30 Acetaminophen/ Hydrocodone Bitart ([place] (5/325)) 2 tab Q6H PRN PO SEVERE PAIN LEVEL 7-10; Start 05/20/17 at 21:30 Morphine Sulfate (morphine) 2 mg Q4H PRN IV SEVERE PAIN LEVEL 7-10 Last administered on 05/26/17 02:19; Admin Dose 2 MG; Start 05/20/17 at 21:30 Docusate Sodium (Colace) 100 mg Q12H PRN PO CONSTIPATION; Start 05/20/17 at 21: 30 Magnesium Hydroxide (Milk Of Mag) 30 ml DAILY PRN PO CONSTIPATION; Start at 21:30 Bisacodyl (Dulcolax Supp) 10 mg DAILY PRN [place] CONSTIPATION; Start 05/20/17 at 21 :30 Famotidine 20 mg 20 mg Q12 PO Last administered on 05/26/17 09:29; Admin Dose 20 MG; Start 05/21/17 at 09:00 Piperacillin Sod/ Tazobactam Sod (Zosyn 3.375gm/ 100 ml (Pmx)) 100 ml @ 200 mls /hr Q8 IVPB Last administered on 05/26/17 05:34; Admin Dose 200 MLS/HR; Start 05/20/17 at 22:00 PORTIA TORRE May 26, 2017 12:12
[2017-05-26 14:09] VITALS: BP 110/67; RESP 18
[2017-05-26 20:00] VITALS: BP 108/88; RESP 19
[2017-05-27 02:00] VITALS: BP 110/62; RESP 19
[2017-05-27] MEDS: morphine 2 MG INJ IV PRN ×4 (02:36→21:00)
[2017-05-27 05:54] LABS: BASOPHILS % 0.7 % (0.0-2.0); EOSINOPHILS # 0.5 10^3/ul (0.0-0.5); EOSINOPHILS % 8.5 % (0.0-7.0); HEMATOCRIT 31.9 % (37.0-47.0); HEMOGLOBIN 10.4 g/dl (12.0-16.0); LYMPHOCYTES # 1.8 10^3/ul (0.8-2.9); LYMPHOCYTES % 30.7 % (15.0-51.0); MEAN CORPUSCULAR HEMOGLOBIN 26.2 pg (29.0-33.0); MEAN CORPUSCULAR HGB CONC 32.6 g/dl (32.0-37.0); MEAN CORPUSCULAR VOLUME 80.4 fl (82.0-101.0); MEAN PLATELET VOLUME 9.8 fl (7.4-10.4); MONOCYTE # 0.4 10^3/ul (0.3-0.9); MONOCYTES % 7.5 % (0.0-11.0); NEUTROPHILS % 52.4 % (39.0-77.0); PLATELET COUNT 344 10^3/UL (140-415); RED BLOOD COUNT 3.97 10^6/ul (4.20-5.40); RED CELL DISTRIBUTION WIDTH 16.1 % (11.5-14.5); WHITE BLOOD COUNT 5.7 10^3/ul (4.8-10.8)
[2017-05-27 06:34] LABS: ALBUMIN 2.4 g/dl (3.3-4.9); ALBUMIN/GLOBULIN RATIO 0.77; BILIRUBIN,INDIRECT 0.1 mg/dl (0-1.1); BILIRUBIN,TOTAL 0.1 mg/dl (0.2-1.3); CALCIUM 8.3 mg/dl (8.4-10.2); CREATININE 0.49 mg/dl (0.44-1.00); POTASSIUM 3.8 mmol/L (3.5-5.1); TOTAL PROTEIN 5.5 g/dl (6.1-8.1)
[2017-05-27 06:37] LABS: MAGNESIUM 1.8 mg/dl (1.7-2.5); PHOSPHORUS 4.1 mg/dl (2.5-4.9)
[2017-05-27 08:28] VITALS: BP 106/65; RESP 18
[2017-05-27] MEDS: FAMOTIDINE 20 MG TAB PO SCH ×2 (09:02→21:04)
--- NOTE | 2017-05-27 12:28 | PN ---
Date/Time of Note Date/Time of Note DATE: 05/27/17 TIME: 12:05 Assessment/Plan VTE Prophylaxis VTE Prophylaxis Intervention: SCD's Lines/Catheters IV Catheter Type (from [facility]): Saline Lock Urinary Cath still in place: No Assessment/Plan Assessment/Plan 47-year-old female with: 1. 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 CAT scan of the chest showing metastatic disease in the chest with pleural seeding likely and malignant bilateral pleural effusions. MRI brain within normal. Records from [facility] only showing outpatient colonoscopy procedure, no biopsy was done then. Colonoscopy and biopsy done at [facility] 05/24 and pathology still pending. Left thoracentesis done 05/25 with removal of 1.5 L, cytology nonconclusive, no malignant cells. Follow-up chest x-ray stable Will attempt ultrasound-guided paracentesis today, ascitic fluid to be sent for cytology also. I had long discussion with the patient and updated her , for now we do not have final pathology therefore we still do not know exactly which type of carcinoma she has. Dr. Ricketts from oncology will need that information in order to come up with a treatment regimen. The patient herself has declined Mediport placement and wants to "research her options first". Therefore she is agreeable to a discharge in the next 24 hours , she will need home oxygen, wheelchair and referral to pain management Continue pain control and as she is tolerating a diet. 2. Chronic anemia, likely related to underlying malignancy and also episodes of rectal bleeding. Hemoglobin stable. Prophylaxis: SCDs for DVT prophylaxis, Pepcid for GI prophylaxis. Disposition: Ultrasound-guided paracentesis today, likely discharge planning the next 24 hours as the patient is still declining Mediport placement and wants to see what her options are before agreeing to proceeding with chemotherapy even if we do not get the final pathology. Continue supportive care. Referral to pain management as an outpatient. Subjective 24 Hr Interval Summary Free Text/Dictation Patient is very insistent on having a paracentesis, she does understand that we may not be able to do it or if it is done she may not feel much relief as her ascites are loculated at this point. We will send cytology from the ascitic fluid if paracentesis done. Otherwise she remains afebrile, pain is controlled. She is requesting wheelchair, home O2 and pain management at the time of discharge. Exam/Review of Systems Vital Signs Vitals Vital Signs Date Time Temp Pulse Resp B/P Pulse Ox O2 Delivery O2 Flow Rate FiO2 05/27/17 08:28 98.1 82 18 106/65 97 05/26/17 20:00 Nasal Cannula 3.0 Intake and Output 05/26/17 05/26/17 05/27/17 15:00 23:00 07:00 Intake Total 960 ml 350 ml Output Total 1000 ml Balance -40 ml 350 ml Exam Constitutional: alert, frail, oriented Respiratory: diminished breath sounds (Bilaterally), other (On 3 L nasal cannula) Cardiovascular: nl pulses, regular rate and rhythm Gastrointestinal: ascites (Loculated), distended, soft Musculoskeletal: nl extremities to inspection Extremities: normal pulses, other (No edema, clubbing or cyanosis) 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: DEBURRER MACHINE 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, lethargic, nl mental status, nl speech, other (Generalized weakness) Results Result Diagram: 05/27/17 0514 05/27/17 0513 Results 24 hrs Laboratory Tests Test 05/27/17 05:13 05/27/17 05:14 Sodium Level 138 Potassium Level 3.8 Chloride Level 101 Carbon Dioxide Level 28 Anion Gap 13 Blood Urea Nitrogen 4 L Creatinine 0.49 Glucose Level 106 Calcium Level 8.3 L Total Bilirubin 0.1 L Direct Bilirubin 0.00 Indirect Bilirubin 0.1 Aspartate Amino Transf (AST/SGOT) 41 Alanine Aminotransferase (ALT/SGPT) 30 Alkaline Phosphatase 85 Total Protein 5.5 L Albumin 2.4 L Globulin 3.10 Albumin/Globulin Ratio 0.77 White Blood Count 5.7 Red Blood Count 3.97 L Hemoglobin 10.4 L Hematocrit 31.9 L Mean Corpuscular Volume 80.4 L Mean Corpuscular Hemoglobin 26.2 L Mean Corpuscular Hemoglobin Concent 32.6 Red Cell Distribution Width 16.1 H Platelet Count 344 Mean Platelet Volume 9.8 Neutrophils % 52.4 Lymphocytes % 30.7 Monocytes % 7.5 Eosinophils % 8.5 H Basophils % 0.7 Nucleated Red Blood Cells % 0.0 Neutrophils # (Manual) 3 Lymphocytes # 1.8 Monocytes # 0.4 Eosinophils # 0.5 Basophils # 0.0 Nucleated Red Blood Cells # 0.0 Phosphorus Level 4.1 Magnesium Level 1.8 Medications Medications Current Medications Ondansetron HCl (Zofran Inj) 4 mg Q6H PRN IV NAUSEA AND/OR VOMITING; Start at 21:30 Acetaminophen (Tylenol Tab) 650 mg Q6H PRN PO PAIN LEVEL 1-3 OR FEVER; Start at 21:30 Acetaminophen/ Hydrocodone Bitart ([place] (5/325)) 1 tab Q6H PRN PO MODERATE PAIN LEVEL 4-6; Start 05/20/17 at 21:30 Acetaminophen/ Hydrocodone Bitart ([place] (5/325)) 2 tab Q6H PRN PO SEVERE PAIN LEVEL 7-10; Start 05/20/17 at 21:30 Morphine Sulfate (morphine) 2 mg Q4H PRN IV SEVERE PAIN LEVEL 7-10 Last administered on 05/27/17 07:54; Admin Dose 2 MG; Start 05/20/17 at 21:30 Docusate Sodium (Colace) 100 mg Q12H PRN PO CONSTIPATION; Start 05/20/17 at 21: 30 Magnesium Hydroxide (Milk Of Mag) 30 ml DAILY PRN PO CONSTIPATION; Start at 21:30 Bisacodyl (Dulcolax Supp) 10 mg DAILY PRN [place] CONSTIPATION; Start 05/20/17 at 21 :30 Famotidine (Pepcid) 20 mg Q12 PO Last administered on 05/27/17 09:02; Admin Dose 20 MG; Start 05/21/17 at 09:00 PORTIA TORRE May 27, 2017 12:20
[2017-05-27 14:00] VITALS: BP 103/60; RESP 18
--- NOTE | 2017-05-27 19:04 | PN ---
Date/Time of Note Date/Time of Note DATE: 05/27/17 TIME: 19:01 Assessment/Plan VTE Prophylaxis VTE Prophylaxis Intervention: SCD's Lines/Catheters [facility] Saline Lock Urinary Cath still in place: No Assessment/Plan Assessment/Plan Assessment: * Assessment: * Metastatic rectal adenocarcinoma * GI bleeding/hematochezia/related to above * Rule out second primary ovary Plan: * Oncology management * We will sign off and follow as needed Subjective 24 Hr Interval Summary Free Text/Dictation Course reviewed with nursing staff Patient has complaints of shortness of breath She was informed of the findings at the time of colonoscopy Specific informed adenocarcinoma of the rectum with extensive metastatic spread Exam/Review of Systems Vital Signs Vitals Vital Signs Date Time Temp Pulse Resp B/P Pulse Ox O2 Delivery O2 Flow Rate FiO2 05/27/17 14:59 Nasal Cannula 3.0 05/27/17 14:00 98.0 112 18 103/60 94 Intake and Output 05/26/17 05/26/17 05/27/17 15:00 23:00 07:00 Intake Total 960 ml 350 ml Output Total 1000 ml Balance -40 ml 350 ml Exam Constitutional: alert, oriented, other (Anxious), well developed Head: atraumatic, normocephalic Neck: non-tender, supple Respiratory: diminished breath sounds (Bilaterally) Cardiovascular: nl pulses, regular rate and rhythm Gastrointestinal: bowel sounds, mass (Lower abdominal fullness), soft, tender ( Lower abdominal tenderness), No ascites, No rebound or guarding Musculoskeletal: nl extremities to inspection Results Result Diagram: 05/27/17 0514 05/27/17 0513 Results 24 hrs Laboratory Tests Test 05/27/17 05:13 05/27/17 05:14 Sodium Level 138 Potassium Level 3.8 Chloride Level 101 Carbon Dioxide Level 28 Anion Gap 13 Blood Urea Nitrogen 4 L Creatinine 0.49 Glucose Level 106 Calcium Level 8.3 L Total Bilirubin 0.1 L Direct Bilirubin 0.00 Indirect Bilirubin 0.1 Aspartate Amino Transf (AST/SGOT) 41 Alanine Aminotransferase (ALT/SGPT) 30 Alkaline Phosphatase 85 Total Protein 5.5 L Albumin 2.4 L Globulin 3.10 Albumin/Globulin Ratio 0.77 White Blood Count 5.7 Red Blood Count 3.97 L Hemoglobin 10.4 L Hematocrit 31.9 L Mean Corpuscular Volume 80.4 L Mean Corpuscular Hemoglobin 26.2 L Mean Corpuscular Hemoglobin Concent 32.6 Red Cell Distribution Width 16.1 H Platelet Count 344 Mean Platelet Volume 9.8 Neutrophils % 52.4 Lymphocytes % 30.7 Monocytes % 7.5 Eosinophils % 8.5 H Basophils % 0.7 Nucleated Red Blood Cells % 0.0 Neutrophils # (Manual) 3 Lymphocytes # 1.8 Monocytes # 0.4 Eosinophils # 0.5 Basophils # 0.0 Nucleated Red Blood Cells # 0.0 Phosphorus Level 4.1 Magnesium Level 1.8 Medications Medications Current Medications Ondansetron HCl (Zofran Inj) 4 mg Q6H PRN IV NAUSEA AND/OR VOMITING; Start at 21:30 Acetaminophen (Tylenol Tab) 650 mg Q6H PRN PO PAIN LEVEL 1-3 OR FEVER; Start at 21:30 Acetaminophen/ Hydrocodone Bitart ([place] (5/325)) 1 tab Q6H PRN PO MODERATE PAIN LEVEL 4-6; Start 05/20/17 at 21:30 Acetaminophen/ Hydrocodone Bitart ([place] (5/325)) 2 tab Q6H PRN PO SEVERE PAIN LEVEL 7-10; Start 05/20/17 at 21:30 Morphine Sulfate (morphine) 2 mg Q4H PRN IV SEVERE PAIN LEVEL 7-10 Last administered on 05/27/17 16:04; Admin Dose 2 MG; Start 05/20/17 at 21:30 Docusate Sodium (Colace) 100 mg Q12H PRN PO CONSTIPATION; Start 05/20/17 at 21: 30 Magnesium Hydroxide (Milk Of Mag) 30 ml DAILY PRN PO CONSTIPATION; Start at 21:30 Bisacodyl (Dulcolax Supp) 10 mg DAILY PRN [place] CONSTIPATION; Start 05/20/17 at 21 :30 Famotidine (Pepcid) 20 mg Q12 PO Last administered on 05/27/17 09:02; Admin Dose 20 MG; Start 05/21/17 at 09:00 MED HEART MD May 27, 2017 19:04
[2017-05-27 20:00] VITALS: BP 126/81; RESP 19
[2017-05-28] MEDS: morphine 2 MG INJ IV PRN ×5 (01:04→20:32)
[2017-05-28 02:00] VITALS: BP 127/81; RESP 21
[2017-05-28 05:36] LABS: BASOPHILS % 0.6 % (0.0-2.0); EOSINOPHILS # 0.6 10^3/ul (0.0-0.5); EOSINOPHILS % 9.3 % (0.0-7.0); HEMATOCRIT 33.1 % (37.0-47.0); HEMOGLOBIN 10.7 g/dl (12.0-16.0); LYMPHOCYTES # 2.6 10^3/ul (0.8-2.9); LYMPHOCYTES % 38.8 % (15.0-51.0); MEAN CORPUSCULAR HEMOGLOBIN 26.3 pg (29.0-33.0); MEAN CORPUSCULAR HGB CONC 32.3 g/dl (32.0-37.0); MEAN CORPUSCULAR VOLUME 81.3 fl (82.0-101.0); MEAN PLATELET VOLUME 9.8 fl (7.4-10.4); MONOCYTE # 0.4 10^3/ul (0.3-0.9); MONOCYTES % 6.4 % (0.0-11.0); NEUTROPHILS % 44.8 % (39.0-77.0); PLATELET COUNT 380 10^3/UL (140-415); RED BLOOD COUNT 4.07 10^6/ul (4.20-5.40); RED CELL DISTRIBUTION WIDTH 16.5 % (11.5-14.5); WHITE BLOOD COUNT 6.7 10^3/ul (4.8-10.8)
[2017-05-28 05:48] LABS: MAGNESIUM 1.9 mg/dl (1.7-2.5); PHOSPHORUS 4.3 mg/dl (2.5-4.9)
[2017-05-28 06:13] LABS: ALBUMIN 2.8 g/dl (3.3-4.9); ALBUMIN/GLOBULIN RATIO 0.87; BILIRUBIN,INDIRECT 0.2 mg/dl (0-1.1); BILIRUBIN,TOTAL 0.2 mg/dl (0.2-1.3); CALCIUM 8.4 mg/dl (8.4-10.2); CREATININE 0.52 mg/dl (0.44-1.00); POTASSIUM 3.8 mmol/L (3.5-5.1)
[2017-05-28 07:45] VITALS: BP 95/65; RESP 48
[2017-05-28] MEDS ORDERED: LIDOCAINE 1% (MPF) 5 ML VIAL ONE (09:26)
[2017-05-28] MEDS: FAMOTIDINE 20 MG TAB PO SCH ×2 (09:53→20:32)
--- NOTE | 2017-05-28 13:04 | PN ---
Date/Time of Note Date/Time of Note DATE: 05/28/17 TIME: 12:28 Assessment/Plan VTE Prophylaxis VTE Prophylaxis Intervention: SCD's Lines/Catheters IV C[facility]ter Type [facility]from [facility] Saline Lock Urinary Cath still in place: No Assessment/Plan Assessment/Plan 47-year-old female with: 1. 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 CAT scan of the chest showing metastatic disease in the chest with pleural seeding likely and malignant bilateral pleural effusions, cytology negative. MRI brain within normal. Records from [facility] only showing outpatient colonoscopy procedure, no biopsy was done then. Colonoscopy and biopsy done at [facility] 05/24 and pathology still pending. Left thoracentesis done 05/25 with removal of 1.5 L, cytology nonconclusive, no malignant cells. Follow-up chest x-ray stable Ultrasound-guided paracentesis done today with removal of 750 mL of ascitic fluid and sent for cytology. I had long discussion with the patient and updated her , for now we do not have final pathology therefore we still do not know exactly which type of moderately differentiated adenocarcinoma she has. Dr. Ricketts from oncology will follow up with patient as an outpatient to discuss pathology final results and also readdress port placement and chemotherapy for the patient's stage IV adenocarcinoma. The patient herself has declined Mediport placement again and wants to " research her options first". Therefore she is agreeable to a discharge home today, home O2, wheelchair and referral to pain management through [facility] Continue pain control and as she is tolerating a diet. We will discharge on [place] 2. Chronic anemia, likely related to underlying malignancy and also episodes of rectal bleeding. Hemoglobin stable. Prophylaxis: SCDs for DVT prophylaxis, Pepcid for GI prophylaxis. Disposition: Discharge home with the DMEs, Bella for pain control, referral to pain management as outpatient, follow-up with outpatient oncology within 1-2 weeks. Subjective 24 Hr Interval Summary Free Text/Dictation Status post paracentesis today, patient feels better with less abdominal pain and distention. She will discharge home today she already has her oxygen, wheelchair, pain management will be arranged oncology general surgery and GI has signed off since the patient does not want to start treatment for now. Exam/Review of Systems Vital Signs Vitals Vital Signs Date Time Temp Pulse Resp B/P Pulse Ox O2 Delivery O2 Flow Rate FiO2 05/28/17 08:00 Nasal Cannula 3.0 05/28/17 07:45 97.7 79 48 95/65 94 Intake and Output 05/27/17 05/27/17 05/28/17 15:00 23:00 07:00 Intake Total 840 ml 600 ml Output Total 700 ml Balance 140 ml 600 ml Exam Constitutional: alert, frail, oriented Respiratory: diminished breath sounds (At bases bilaterally), normal air movement Cardiovascular: nl pulses, regular rate and rhythm Gastrointestinal: distended (Much improved status post paracentesis), non- tender, soft Musculoskeletal: nl extremities to inspection Extremities: normal pulses, other (No edema, clubbing or cyanosis) 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: 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, nl mental status, nl speech, nl strength Results Result Diagram: 05/28/1744605/28/177 Results 24 hrs Laboratory Tests Test 05/28/17 04:47 White Blood Count 6.7 Red Blood Count 4.07 L Hemoglobin 10.7 L Hematocrit 33.1 L Mean Corpuscular Volume 81.3 L Mean Corpuscular Hemoglobin 26.3 L Mean Corpuscular Hemoglobin Concent 32.3 Red Cell Distribution Width 16.5 H Platelet Count 380 Mean Platelet Volume 9.8 Neutrophils % 44.8 Lymphocytes % 38.8 Monocytes % 6.4 Eosinophils % 9.3 H Basophils % 0.6 Nucleated Red Blood Cells % 0.0 Neutrophils # (Manual) 3 Lymphocytes # 2.6 Monocytes # 0.4 Eosinophils # 0.6 H Basophils # 0.0 Nucleated Red Blood Cells # 0.0 Sodium Level 137 Potassium Level 3.8 Chloride Level 98 Carbon Dioxide Level 31 Anion Gap 12 Blood Urea Nitrogen 3 L Creatinine 0.52 Glucose Level 103 Calcium Level 8.4 Phosphorus Level 4.3 Magnesium Level 1.9 Total Bilirubin 0.2 Direct Bilirubin 0.00 Indirect Bilirubin 0.2 Aspartate Amino Transf (AST/SGOT) 38 Alanine Aminotransferase (ALT/SGPT) 27 Alkaline Phosphatase 94 Total Protein 6.0 L Albumin 2.8 L Globulin 3.20 Albumin/Globulin Ratio 0.87 Medications Medications Current Medications Ondansetron HCl (Zofran Inj) 4 mg Q6H PRN IV NAUSEA AND/OR VOMITING; Start at 21:30 Acetaminophen (Tylenol Tab) 650 mg Q6H PRN PO PAIN LEVEL 1-3 OR FEVER; Start at 21:30 Acetaminophen/ Hydrocodone Bitart ([place] (5/325)) 1 tab Q6H PRN PO MODERATE PAIN LEVEL 4-6; Start 05/20/17 at 21:30 Acetaminophen/ Hydrocodone Bitart ([place] (5/325)) 2 tab Q6H PRN PO SEVERE PAIN LEVEL 7-10; Start 05/20/17 at 21:30 Morphine Sulfate (morphine) 2 mg Q4H PRN IV SEVERE PAIN LEVEL 7-10 Last administered on 05/28/17 11:55; Admin Dose 2 MG; Start 05/20/17 at 21:30 Docusate Sodium (Colace) 100 mg Q12H PRN PO CONSTIPATION; Start 05/20/17 at 21: 30 Magnesium Hydroxide (Milk Of Mag) 30 ml DAILY PRN PO CONSTIPATION; Start at 21:30 Bisacodyl (Dulcolax Supp) 10 mg DAILY PRN [place] CONSTIPATION; Start 05/20/17 at 21 :30 Famotidine (Pepcid) 20 mg Q12 PO Last administered on 05/28/17 09:53; Admin Dose 20 MG; Start 05/21/17 at 09:00 PORTIA TORRE May 28, 2017 12:42
--- NOTE | 2017-05-28 13:12 | PDOCDIS ---
Discharge Instructions CONDITION Patient Condition: Stable HOME CARE INSTRUCTIONS: Special Diet: regular ACTIVITY: Activity Restrictions: Slowly Increase Activity FOLLOW UP/APPOINTMENTS Follow-up Plan Follow-up with primary care physician within 1 week Follow-up with oncology, Dr. Ricketts within 1-2 weeks Referral to outpatient pain management through [facility] for the patient to be seen within 1-2 weeks Follow-up with home health RN at home REFERRALS Other Referrals Patient already has wheelchair, home O2 to go home with. PORTIA TORRE May 28, 2017 13:12
[2017-05-28] MEDS ORDERED: HYDR-3498 PO (13:15)
--- NOTE | 2017-05-28 13:57 | RADRPT ---
PROCEDURE: Ultrasound guided paracentesis. CLINICAL INDICATION: Ascites and shortness of breath. COMPARISON: No prior studies are available for comparison. TECHNIQUE: The risks, benefits, and alternatives were explained to the patient and/or the patient's family, inc luding but not limited to bleeding, infection, pain, visceral or vascular damage, shock, and . The patient and/or the patient's family understood the risks and the alternatives and wished to pro ceed with the procedure. Informed written consent was obtained. A procedural time out was performed . The patient's name, date of , and procedure to be performed were verified. Utilizing ultrasound guidance, optimal location for entry to the peritoneal cavity was ascertained. The overlying skin was prepped and draped in the usual sterile fashion. Approximately 10 ml of 1% Xylocaine was injected locally for pain control. Using ultrasound guidance, an 8 Welsh catheter wa s introduced into the peritoneal cavity in the left lower quadrant without difficulty. FINDINGS: Initial images demonstrate ascites. Approximately 0.750 liters of serous fluid was aspirated and se nt for laboratory analysis. The patient tolerated the procedure well without complication. IMPRESSION: 1. Successful ultrasound-guided paracentesis. RPTAT: QQ .Frankie Mccullough MD, MD Date Time Electronically viewed and signed by .Frankie Mccullough MD, on 05/28/2017 13:57 .R/
[2017-05-28 14:09] VITALS: BP 100/66; RESP 18
[2017-05-28 20:49] VITALS: BP 114/80; RESP 18
--- NOTE | 2017-05-28 21:26 | CONS ---
Date/Time of Note Date/Time of Note DATE: 05/28/17 TIME: 21:22 Assessment/Plan Assessment/Plan Chief Complaint/Hosp Course 47 yo with #Metastatic ca with likely malignancy pleural effusions, pulmonary mets, pleural carcinomatosis, hepatic mets , cystic lesions with a dominant lesion appearing to arise from the right adnexa measuring 10.7 x 15.5 x 14.8 cm, rectal wall thickening and bilateral inguinal adenopathy. -final path consistent with metastatic rectal cancer -at this time, patient refuses chemotherapy or port a cath placement -wants to think about other options -she has my number to follow up with me as an outpatient if she wants to pursue treatment -if rectal primary , will need to check KRAS mutation status and for Microsatellite Instability as these results can help to guide treatment -Brain MRI negative for malignancy #Anemia - likely 2/2 blood loss and iron deficiency -Hg stable at 11 -continue start IV iron at this time #shortness of breath 2/2 Bilateral Pleural Effusions -will order thoracentesis. -will check cytology on pleural fluid #UTI -continue antibiotics Problems: (1) Ovarian cystic mass Qualifiers: Laterality: unspecified laterality Qualified Code: N83.209 - Cyst of ovary , unspecified laterality (2) Pleural effusion Status: Acute (3) Colon carcinoma Problems: Consultation Date/Type/Reason Admit Date/Time May 20, 2017 at 18:19 Initial Consult Date 05/22/17 Type of Consultation: Oncology Reason for Consultation rectal adenocarcinoma Referring Provider: PORTIA TORRE 24 HR Interval Summary Free Text/Dictation i spoke with the patient and her at length about her diagnosis of metastatic rectal cancer. she does not want chemotherapy at this time and would like to consider other options. she refuses a port a cath at this time. c/o abdominal distension and awaiting paracentesis Exam/Review of Systems Vital Signs Vitals Vital Signs Date Time Temp Pulse Resp B/P Pulse Ox O2 Delivery O2 Flow Rate FiO2 05/28/17 20:49 98.7 70 18 114/80 96 05/28/17 08:00 Nasal Cannula 3.0 Intake and Output 05/27/17 05/27/17 05/28/17 15:00 23:00 07:00 Intake Total 840 ml 600 ml Output Total 700 ml Balance 140 ml 600 ml Exam Constitutional: alert, oriented Psych: no complaints Head: normocephalic Eyes: nl conjunctiva ENMT: nl external ears & nose Respiratory: clear to auscultation Cardiovascular: regular rate and rhythm Gastrointestinal: ascites, firm, mass Results Result Diagram: 05/28/1744605/28/17446 Results 24 hrs Laboratory Tests Test 05/28/17 04:47 White Blood Count 6.7 Red Blood Count 4.07 L Hemoglobin 10.7 L Hematocrit 33.1 L Mean Corpuscular Volume 81.3 L Mean Corpuscular Hemoglobin 26.3 L Mean Corpuscular Hemoglobin Concent 32.3 Red Cell Distribution Width 16.5 H Platelet Count 380 Mean Platelet Volume 9.8 Neutrophils % 44.8 Lymphocytes % 38.8 Monocytes % 6.4 Eosinophils % 9.3 H Basophils % 0.6 Nucleated Red Blood Cells % 0.0 Neutrophils # (Manual) 3 Lymphocytes # 2.6 Monocytes # 0.4 Eosinophils # 0.6 H Basophils # 0.0 Nucleated Red Blood Cells # 0.0 Sodium Level 137 Potassium Level 3.8 Chloride Level 98 Carbon Dioxide Level 31 Anion Gap 12 Blood Urea Nitrogen 3 L Creatinine 0.52 Glucose Level 103 Calcium Level 8.4 Phosphorus Level 4.3 Magnesium Level 1.9 Total Bilirubin 0.2 Direct Bilirubin 0.00 Indirect Bilirubin 0.2 Aspartate Amino Transf (AST/SGOT) 38 Alanine Aminotransferase (ALT/SGPT) 27 Alkaline Phosphatase 94 Total Protein 6.0 L Albumin 2.8 L Globulin 3.20 Albumin/Globulin Ratio 0.87 Medications Medications Current Medications Ondansetron HCl (Zofran Inj) 4 mg Q6H PRN IV NAUSEA AND/OR VOMITING; Start at 21:30 Acetaminophen (Tylenol Tab) 650 mg Q6H PRN PO PAIN LEVEL 1-3 OR FEVER; Start at 21:30 Acetaminophen/ Hydrocodone Bitart ([place] (5/325)) 1 tab Q6H PRN PO MODERATE PAIN LEVEL 4-6; Start 05/20/17 at 21:30 Acetaminophen/ Hydrocodone Bitart ([place] (5/325)) 2 tab Q6H PRN PO SEVERE PAIN LEVEL 7-10; Start 05/20/17 at 21:30 Morphine Sulfate (morphine) 2 mg Q4H PRN IV SEVERE PAIN LEVEL 7-10 Last administered on 05/28/17t 20:32; Admin Dose 2 MG; Start 05/20/17 at 21:30 Docusate Sodium (Colace) 100 mg Q12H PRN PO CONSTIPATION; Start 05/20/17 at 21: 30 Magnesium Hydroxide (Milk Of Mag) 30 ml DAILY PRN PO CONSTIPATION; Start at 21:30 Bisacodyl (Dulcolax Supp) 10 mg DAILY PRN [place] CONSTIPATION; Start 05/20/17 at 21 :30 Famotidine (Pepcid) 20 mg Q12 PO Last administered on 05/28/17t 20:32; Admin Dose 20 MG; Start 05/21/17 at 09:00 ROSENDA MERCADO M.D. May 28, 2017 21:25
== END 2017-05-28 21:30 | disposition home health service (06) | DRG 375 ==
LOC: E/R 15:39 → PP2 18:19
PROVIDERS: ADMIT Internal Medicine; ATTEND Internal Medicine
PROC: 0DBQ8ZX Excision of Anus, Via Natural or Artificial Opening Endoscopic, Diagnostic (ICD-10-PCS; 2017-05-24)
PROC: 0DBP8ZX Excision of Rectum, Via Natural or Artificial Opening Endoscopic, Diagnostic (ICD-10-PCS; 2017-05-24)
PROC: 0W9B3ZX Drainage of Left Pleural Cavity, Percutaneous Approach, Diagnostic (ICD-10-PCS; principal; 2017-05-25)
PROC: 0W9G3ZZ Drainage of Peritoneal Cavity, Percutaneous Approach (ICD-10-PCS; 2017-05-28)
DX: C20 Malignant neoplasm of rectum (principal); C21.0 Malignant neoplasm of anus, unspecified; J91.0 Malignant pleural effusion; C80.0 Disseminated malignant neoplasm, unspecified; C79.60 Secondary malignant neoplasm of unspecified ovary; C78.00 Secondary malignant neoplasm of unspecified lung; C78.7 Secondary malignant neoplasm of liver and intrahepatic bile duct; R18.8 Other ascites; R17 Unspecified jaundice; N39.0 Urinary tract infection, site not specified; D50.0 Iron deficiency anemia secondary to blood loss (chronic); E86.0 Dehydration; D63.0 Anemia in neoplastic disease
CPT/HCPCS: 32555; 36415; 70553; 71010; 71250; 74177; 80048; 80053; 81001; 82378; 83615; 83690; 83735; 84100; 84439; 84443; 84484; 85025; 85610; 85730; 86301; 86304; 86850; 86900; 86901; 87075; 87086; 88104; 88305; 93005; 96374; 96375; J1650; J2001; J2270; J2405; J2543; J3010; J7030; Q9967

== ENCOUNTER 2017-06-15 13:29 | Observation (INO) | payer OTHER ==
[~2017-06-15] VITALS: Ht 157.5 cm; Wt 64.9 kg
[~2017-06-15 13:29] MED LIST: ACET-141 PO; HYDR-3498 PO
--- NOTE | 2017-06-15 14:43 | ERA ---
ER Documentation Chief Complaint Date/Time DATE: 06/15/17 TIME: 14:42 Chief Complaint SOB, PER PT NEEDS FLUID REMOVED HPI The patient is a 47-year-old female, presenting with acute on chronic dyspnea, acute on chronic abdominal pain and distention. She was admitted recently due to metastatic rectal cancer and had thoracentesis and abdominal paracentesis. She denies fever, chills, neck pain, chest pain, dysuria, diarrhea. she does not smoke or drink Past medical history: Metastatic rectal cancer, history of ascites and history of pleural effusion Past surgical history: Rhinoplasty ROS All systems reviewed and are negative except as per history of present illness. Medications Home Meds Active Scripts Hydrocodone Bit-Acetaminophen (Hydrocodone Bit-APAP) 5-325MG Tablet, 2 TAB PO Q6H Y for SEVERE PAIN LEVEL 7-10, #60 TAB Prov:NICHOPORTIA 05/28/17 Reported Medications Oxycodone HCl/Acetaminophen (Percocet 10-325 mg Tablet) 1 Each Tablet, 1 EACH PO Q6H, TAB 06/15/17 Discontinued Reported Medications Acetaminophen* (Acetaminophen*) 500 MG Extra Strength Tablet, 500 MG PO Q4H Y for PAIN AND OR ELEVATED TEMP, TAB 05/21/17 Allergies Allergies: Coded Allergies: No Known Allergy (Unverified , 05/20/17) PMhx/Soc History of Surgery: Yes (RHINOPLASTY) Anesthesia Reaction: No Hx 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 Disorder: No Hx Respiratory Disorders: No Hx Cardiac Disorders: No Hx Psychiatric Problems: No Hx Miscellaneous Medical Probl: No Hx Alcohol Use: No Hx Substance Use: No Hx Tobacco Use: No Physical Exam Vitals Vital Signs Date Time Temp Pulse Resp B/P Pulse Ox O2 Delivery O2 Flow Rate FiO2 06/15/17 18:52 98.2 105 20 110/72 85 Nasal Cannula 3.0 06/15/17 17:55 102 24 122/81 97 Nasal Cannula 3.0 06/15/17 15:50 110 24 127/62 97 Nasal Cannula 3.0 06/15/17 15:10 Nasal Cannula 3 06/15/17 15:10 Nasal Cannula 3.0 06/15/17 14:29 117 24 0/0 97 Nasal Cannula 3.0 06/15/17 13:34 98.3 118 24 129/90 90 Physical Exam Const: No acute distress. Head: Atraumatic. Eyes: Normal Conjunctiva. ENT: Normal External Ears, Nose and Mouth. Neck: Full range of motion. No meningismus. Resp: Decreased breath sounds bilateral Cardio: Regular rate and rhythm. Abd: Soft, Ascites, normal bowel sounds, non tender. Skin: No petechiae or rashes. Back: No midline or flank tenderness. Ext: No cyanosis, or edema. Neur: Awake and alert. No focal deficit Psych: Normal Mood and Affect. Result Diagram: 06/15/17 1500 06/15/17 1500 Results 24 hrs Laboratory Tests Test 06/15/17 15:00 White Blood Count 6.510^3/ul Red Blood Count 4.3710^6/ul Hemoglobin 11.3g/dl Hematocrit 35.7% Mean Corpuscular Volume 81.7fl Mean Corpuscular Hemoglobin 25.9pg Mean Corpuscular Hemoglobin Concent 31.7g/dl Red Cell Distribution Width 17.2% Platelet Count 44858^3/UL Mean Platelet Volume 9.7fl Neutrophils % 47.4% Lymphocytes % 34.6% Monocytes % 7.0% Eosinophils % 9.9% Basophils % 0.9% Nucleated Red Blood Cells % 0.0/100WBC Neutrophils # (Manual) 3.110^3/ul Lymphocytes # 2.210^3/ul Monocytes # 0.510^3/ul Eosinophils # 0.610^3/ul Basophils # 0.110^3/ul Nucleated Red Blood Cells # 0.010^3/ul Prothrombin Time 13.2Sec Prothrombin Time Ratio 1.0 INR International Normalized Ratio 1.00 Activated Partial Thromboplast Time 32.0Sec Sodium Level 135mmol/L Potassium Level 3.9mmol/L Chloride Level 102mmol/L Carbon Dioxide Level 27mmol/L Anion Gap 10 Blood Urea Nitrogen 11mg/dl Creatinine 0.57mg/dl Glucose Level 115mg/dl Calcium Level 8.8mg/dl Total Bilirubin 0.1mg/dl Direct Bilirubin 0.00mg/dl Indirect Bilirubin 0.1mg/dl Aspartate Amino Transf (AST/SGOT) 58IU/L Alanine Aminotransferase (ALT/SGPT) 32IU/L Alkaline Phosphatase 325IU/L B-Type Natriuretic Peptide 85PG/ML Total Protein 6.9g/dl Albumin 3.2g/dl Globulin 3.70g/dl Albumin/Globulin Ratio 0.86 Serum HCG, Qualitative NEGATIVE Current Medications Medications (Trade) Dose Ordered Sig/Dong Route PRN Reason Start Time Stop Time Status Last Admin Dose Admin Oxycodone/ Acetaminophen (Endocet (10/ 325)) 1 tab Q6H PO 06/15/17 17:00 IV Flush (NS 3 ml) 3 ml PER PROTOCOL IV 06/15/17 17:00 Ondansetron HCl (Zofran Inj) 4 mg Q6H PRN IV NAUSEA AND/OR VOMITING 06/15/17 17:00 Acetaminophen (Tylenol Tab) 650 mg Q6H PRN PO PAIN LEVEL 1-3 OR FEVER 06/15/17 17:00 Docusate Sodium (Colace) 100 mg Q12H PRN PO CONSTIPATION 06/15/17 17:00 Magnesium Hydroxide (Milk Of Mag) 30 ml DAILY PRN PO CONSTIPATION 06/15/17 17:00 Bisacodyl (Dulcolax Supp) 10 mg DAILY PRN [place] CONSTIPATION 06/15/17 17:00 Morphine Sulfate (morphine) 2 mg Q4H PRN IV PAIN 06/15/17 17:00 06/15/17 18:40 Lidocaine (Xylocaine 1% (Mpf)) 5 ml STK-MED ONCE .ROUTE 06/15/17 17:06 06/15/17 17:07 DC Procedures/[place] [id number] Radiology Main Line: [phone] DIAGNOSTIC IMAGING REPORT Patient: FIOR SHIRLEY : 1970 Age: 47 Sex: F MR #: [id number] DOS: 06/15/17 0000 Ordering MD: SAAD LEMUS MD Location: E/R Room/Bed: PROCEDURE: XR, Chest, 06/15/2017, 05:12 p.m.. CLINICAL INDICATION: After left thoracentesis. TECHNIQUE: AP chest COMPARISON: Chest, 06/15/2017, 03:06 p.m.. FINDINGS: There has been complete interval clearing of the left pleural effusion. No pneumothorax seen. There is large right pleural effusion with compressive atelectasis of the right lower lobe. There is no acute infiltrate in the lungs. No pleural effusion. The heart is not enlarged. IMPRESSION: 1. Complete interval clearing of left pleural effusion after left thoracentesis. No pneumothorax seen. 2. Large right pleural effusion with compressive atelectasis of the right lower lobe. RPTAT: GG .Dontea Morel MD, MD Date Time Electronically viewed and signed by .Dontae Morel MD, MD on 06/15/2017 17:27 .Y/ CC: SAAD LEMUS MD [place] [address] Radiology Main Line: [phone] DIAGNOSTIC IMAGING REPORT Patient: FIOR SHIRLEY : 1970 Age: 47 Sex: F MR #: [id number] DOS: 06/15/17 0000 Ordering MD: SAAD LEMUS MD Location: E/R Room/Bed: PROCEDURE: US Abdomen limited . CLINICAL INDICATION: Ascites TECHNIQUE: Multiple real-time images were acquired of the patient's abdomen utilizing a high resolution transducer. COMPARISON: None FINDINGS: There is a small amount of ascites, not enough for paracentesis. RPTAT: AA IMPRESSION: Small amount of ascites. Physician Elizabeth Date Time Electronically viewed and signed by Physician Elizabeth on 06/15/2017 16:14 RA/ CC: SAAD LEMUS MD [place] [address] Radiology Main Line: [phone] DIAGNOSTIC IMAGING REPORT Patient: FIOR SHIRLEY : 1970 Age: 47 Sex: F MR #: [id number] DOS: 06/15/17 1452 Ordering MD: SAAD LEMUS MD Location: E/R Room/Bed: PROCEDURE: XR Chest. CLINICAL INDICATION: Shortness of breath. TECHNIQUE: Single frontal view. COMPARISON: 05/25/2017. FINDINGS: There is a moderate right pleural effusion, unchanged. There is a large left pleural effusion, larger than seen previously. There is associated atelectasis at the lung bases with left worse than right. The heart size is normal. There is no pneumothorax. IMPRESSION: 1. Larger left pleural effusion and worse appearance of the left lung base. 2. No other change from 05/25/2017. RPTAT: QQ .Frankie Mccullough MD, MD Date Time Electronically viewed and signed by .Frankie Mccullough MD, MD on 06/15/2017 15:35 .R/ CC: SAAD LEMUS MD [place] [address] Radiology Main Line: [phone] DIAGNOSTIC IMAGING REPORT Patient: FIOR SHIRLEY : 1970 Age: 47 Sex: F MR #: [id number] DOS: 06/15/17 1539 Ordering MD: SAAD LEMUS MD Location: E/R Room/Bed: PROCEDURE: US guided left thoracentesis. CLINICAL INDICATION: Shortness of breath. Left pleural effusion. TECHNIQUE: Prior to the procedure, informed consent was obtained. The risks, benefits, and alternatives were explained to the patient or the patient's family, including but not limited to bleeding, infection, pain, visceral or vascular damage, shock, pneumothorax, chest tube placement, air embolism, and . The patient or the patient's family understood the risks and the alternatives and wished to proceed with the study. Informed written consent was obtained. A procedural pause was performed. The patient's name, date of , and procedure to be performed were verified. Ultrasound of the left hemithorax was performed in the axial and sagittal planes. A left pleural effusion is noted. Utilizing ultrasound guidance, optimal location for entry to the pleural cavity was ascertained. The overlying skin was prepped and draped in the usual sterile fashion. Approximately 10 ml of 1% Xylocaine was injected locally for pain control. Using ultrasound guidance, a 5-Greek Yueh catheter was introduced into the left pleural space without difficulty. Fluid was aspirated. COMPARISON: 05/25/2017. FINDINGS: Initial ultrasound demonstrates fluid in the left pleural space. Approximately 1.9 liters of serous fluid was aspirated and discarded. IMPRESSION: 1. Satisfactory ultrasound-guided left thoracentesis. RPTAT: QQ .Frankie Mccullough MD, MD Date Time Electronically viewed and signed by .Frankie Mccullough MD, MD on 06/15/2017 17:53 .R/ CC: SAAD LEMUS MD EKG: Read by emergency physician Rate/Rhythm: Sinus tachycardia 105 beats/min QRS, ST, T-waves: No ST elevation, no T inversion Impression: Abnormal EKG MEDICAL MAKING DECISION: The patient is a 47-year-old female, presenting with recurrent bilateral pleural effusion, recurrent ascites. She had left thoracentesis that removed about 1.9 L, abdominal anxiety was inadequate for thoracic paracentesis The differential diagnoses considered include but are not limited to malignancy , asthma, COPD, pneumonia, pulmonary embolus, pleural effusion, congestive heart failure. Departure Diagnosis: Primary Impression: Pleural effusion Additional Impression: Ascites Condition: Stable Comments I discussed the findings with the patient. I discussed the patient with her physician Dr Bull who was made aware of the lab, the treatment, the patient condition. The patient is admitted to [facility] for 24 hr obs SAAD LEMUS MD Jun 15, 2017 14:43
[2017-06-15] MEDS ORDERED: OXYC-209 PO (15:12)
[2017-06-15 15:17] LABS: BASOPHIL # 0.1 10^3/ul (0.0-0.1); BASOPHILS % 0.9 % (0.0-2.0); EOSINOPHILS # 0.6 10^3/ul (0.0-0.5); EOSINOPHILS % 9.9 % (0.0-7.0); HEMATOCRIT 35.7 % (37.0-47.0); HEMOGLOBIN 11.3 g/dl (12.0-16.0); LYMPHOCYTES # 2.2 10^3/ul (0.8-2.9); LYMPHOCYTES % 34.6 % (15.0-51.0); MEAN CORPUSCULAR HEMOGLOBIN 25.9 pg (29.0-33.0); MEAN CORPUSCULAR HGB CONC 31.7 g/dl (32.0-37.0); MEAN CORPUSCULAR VOLUME 81.7 fl (82.0-101.0); MEAN PLATELET VOLUME 9.7 fl (7.4-10.4); MONOCYTE # 0.5 10^3/ul (0.3-0.9); NEUTROPHILS % 47.4 % (39.0-77.0); PLATELET COUNT 481 10^3/UL (140-415); RED BLOOD COUNT 4.37 10^6/ul (4.20-5.40); RED CELL DISTRIBUTION WIDTH 17.2 % (11.5-14.5); WHITE BLOOD COUNT 6.5 10^3/ul (4.8-10.8)
[2017-06-15 15:35] LABS: PROTIME 13.2 Sec (12.2-14.2)
--- NOTE | 2017-06-15 15:36 | RADRPT ---
PROCEDURE: XR Chest. CLINICAL INDICATION: Shortness of breath. TECHNIQUE: Single frontal view. COMPARISON: 05/25/2017. FINDINGS: There is a moderate right pleural effusion, unchanged. There is a large left pleural effusion, large r than seen previously. There is associated atelectasis at the lung bases with left worse than right . The heart size is normal. There is no pneumothorax. IMPRESSION: 1. Larger left pleural effusion and worse appearance of the left lung base. 2. No other change from 05/25/2017. RPTAT: QQ .Frankie Mccullough MD, MD Date Time Electronically viewed and signed by .Frankie Mccullough MD, MD on 06/15/2017 15:35 .R/
[2017-06-15 15:40] LABS: ALBUMIN 3.2 g/dl (3.3-4.9); ALBUMIN/GLOBULIN RATIO 0.86; BILIRUBIN,INDIRECT 0.1 mg/dl (0-1.1); BILIRUBIN,TOTAL 0.1 mg/dl (0.2-1.3); CALCIUM 8.8 mg/dl (8.4-10.2); CREATININE 0.57 mg/dl (0.44-1.00); POTASSIUM 3.9 mmol/L (3.5-5.1); TOTAL PROTEIN 6.9 g/dl (6.1-8.1)
--- NOTE | 2017-06-15 16:14 | RADRPT ---
PROCEDURE: US Abdomen limited . CLINICAL INDICATION: Ascites TECHNIQUE: Multiple real-time images were acquired of the patient's abdomen utilizing a high resol ution transducer. COMPARISON: None FINDINGS: There is a small amount of ascites, not enough for paracentesis. RPTAT: AA IMPRESSION: Small amount of ascites. [place] Maldonado Physician Date Time Electronically viewed and signed by [place] Maldonado Physician on 06/15/2017 16:14 RA/
[2017-06-15] MEDS: OXYCODONE/ACETAMINOPHEN (10/325) TAB PO SCH ×2 (17:00→23:00)
[2017-06-15] MEDS ORDERED: BISACODYL 10 MG SUPP PR PRN (17:00)
[2017-06-15] MEDS ORDERED: ACETAMINOPHEN 325 MG TAB PO PRN (17:00)
[2017-06-15] MEDS ORDERED: DOCUSATE SODIUM 100 MG CAP PO PRN (17:00)
[2017-06-15] MEDS ORDERED: NACL 0.9% 3 ML SYG IV SCH (17:00)
[2017-06-15] MEDS ORDERED: MAGNESIUM HYDROXIDE 30ML CUP PO PRN (17:00)
[2017-06-15] MEDS ORDERED: ONDANSETRON 4 MG INJ IV PRN (17:00)
[2017-06-15] MEDS ORDERED: LIDOCAINE 1% (MPF) 5 ML VIAL ONE (17:06)
--- NOTE | 2017-06-15 17:28 | RADRPT ---
PROCEDURE: XR, Chest, 06/15/2017, 05:12 p.m.. CLINICAL INDICATION: After left thoracentesis. TECHNIQUE: AP chest COMPARISON: Chest, 06/15/2017, 03:06 p.m.. FINDINGS: There has been complete interval clearing of the left pleural effusion. No pneumothorax seen. There is large right pleural effusion with compressive atelectasis of the right lower lobe. There is no ac pierre infiltrate in the lungs. No pleural effusion. The heart is not enlarged. IMPRESSION: 1. Complete interval clearing of left pleural effusion after left thoracentesis. No pneumothorax s een. 2. Large right pleural effusion with compressive atelectasis of the right lower lobe. RPTAT: GG .Dontae Morel MD, Date Time Electronically viewed and signed by .Dontae Morel MD, on 06/15/2017 17:27 .Y/
--- NOTE | 2017-06-15 17:53 | RADRPT ---
PROCEDURE: US guided left thoracentesis. CLINICAL INDICATION: Shortness of breath. Left pleural effusion. TECHNIQUE: Prior to the procedure, informed consent was obtained. The risks, benefits, and alternatives were e xplained to the patient or the patient's family, including but not limited to bleeding, infection, p ain, visceral or vascular damage, shock, pneumothorax, chest tube placement, air embolism, and . The patient or the patient's family understood the risks and the alternatives and wished to proce ed with the study. Informed written consent was obtained. A procedural pause was performed. The patient's name, date of , and procedure to be performed were verified. Ultrasound of the left hemithorax was performed in the axial and sagittal planes. A left pleural eff usion is noted. Utilizing ultrasound guidance, optimal location for entry to the pleural cavity was ascertained. The overlying skin was prepped and draped in the usual sterile fashion. Approximately 10 ml of 1% Xylocaine was injected locally for pain control. Using ultrasound guidance, a 5-Indonesian Yueh catheter was introduced into the left pleural space without difficulty. Fluid was aspirated. COMPARISON: 05/25/2017. FINDINGS: Initial ultrasound demonstrates fluid in the left pleural space. Approximately 1.9 liters of serous fluid was aspirated and discarded. IMPRESSION: 1. Satisfactory ultrasound-guided left thoracentesis. RPTAT: QQ .Frankie Mccullough MD, Date Time Electronically viewed and signed by .Frankie Mccullough MD, on 06/15/2017 17:53 .R/
[2017-06-15 17:55] VITALS: PULSE 102
[2017-06-15] MEDS: morphine 2 MG INJ IV PRN ×2 (18:40→22:50)
[2017-06-15 18:46] VITALS: Ht 157.5 cm; Wt 64.9 kg
[2017-06-15 18:52] VITALS: BP 110/72; PULSE 105; RESP 20
[2017-06-15 19:44] VITALS: BP 118/75; RESP 20
[2017-06-15] MEDS: FAMOTIDINE 20 MG TAB PO SCH (20:10)
[2017-06-16 02:05] VITALS: BP 123/68; RESP 20
[2017-06-16] MEDS: OXYCODONE/ACETAMINOPHEN (10/325) TAB PO SCH ×2 (04:24→11:45)
[2017-06-16] MEDS: morphine 2 MG INJ IV PRN ×2 (04:40→11:06)
[2017-06-16 06:01] LABS: BASOPHILS % 0.8 % (0.0-2.0); EOSINOPHILS # 0.3 10^3/ul (0.0-0.5); EOSINOPHILS % 6.9 % (0.0-7.0); HEMATOCRIT 31.4 % (37.0-47.0); HEMOGLOBIN 10.2 g/dl (12.0-16.0); LYMPHOCYTES # 1.3 10^3/ul (0.8-2.9); LYMPHOCYTES % 26.1 % (15.0-51.0); MEAN CORPUSCULAR HEMOGLOBIN 26.6 pg (29.0-33.0); MEAN CORPUSCULAR HGB CONC 32.5 g/dl (32.0-37.0); MEAN CORPUSCULAR VOLUME 81.8 fl (82.0-101.0); MEAN PLATELET VOLUME 10.1 fl (7.4-10.4); MONOCYTE # 0.4 10^3/ul (0.3-0.9); MONOCYTES % 8.6 % (0.0-11.0); NEUTROPHILS % 57.4 % (39.0-77.0); PLATELET COUNT 403 10^3/UL (140-415); RED BLOOD COUNT 3.84 10^6/ul (4.20-5.40); WHITE BLOOD COUNT 4.9 10^3/ul (4.8-10.8)
[2017-06-16 06:22] LABS: INR 1.01; PROTIME 13.3 Sec (12.2-14.2)
[2017-06-16 06:23] LABS: PARTIAL THROMBOPLASTIN TIME 32.9 Sec (25.0-35.0)
[2017-06-16 06:29] LABS: ALBUMIN 2.7 g/dl (3.3-4.9); ALBUMIN/GLOBULIN RATIO 0.84; BILIRUBIN,INDIRECT 0.1 mg/dl (0-1.1); BILIRUBIN,TOTAL 0.1 mg/dl (0.2-1.3); CALCIUM 8.6 mg/dl (8.4-10.2); CREATININE 0.56 mg/dl (0.44-1.00); MAGNESIUM 1.9 mg/dl (1.7-2.5); PHOSPHORUS 4.4 mg/dl (2.5-4.9); POTASSIUM 3.7 mmol/L (3.5-5.1); TOTAL PROTEIN 5.9 g/dl (6.1-8.1)
[2017-06-16 07:52] VITALS: BP 101/64; RESP 18
--- NOTE | 2017-06-16 08:16 | RADRPT ---
PROCEDURE: Chest Radiograph. CLINICAL INDICATION: No effusion TECHNIQUE: Single frontal chest radiograph. COMPARISON: Chest radiograph 06/15/2017 FINDINGS: A moderate right pleural effusion with adjacent atelectasis/infiltrate is grossly unchanged.. There is significant worsening air space disease in the left perihilar region and lung base as well as pr obable reaccumulation of small left pleural effusion. The lungs are otherwise clear. The bones ar e intact. IMPRESSION: 1. Significant worsening air space disease in the left perihilar region and lung base which may rep resent infiltrate or pulmonary edema. 2. Probable partial recurrence of small left pleural effusion. 3. Stable moderate right pleural effusion with adjacent atelectasis. RPTAT: HJBF .Antwan Burgos MD, Date Time Electronically viewed and signed by .Antwan Burgos MD, MD on 06/16/2017 08:15 .B/
[2017-06-16] MEDS: FAMOTIDINE 20 MG TAB PO SCH (08:56)
--- NOTE | 2017-06-16 09:19 | HP ---
Date/Time of Note Date/Time of Note DATE: 06/16/17 TIME: 09:17 Assessment/Plan VTE Prophylaxis VTE Prophylaxis Intervention: SCD's Lines/Catheters IV [facility]ter [facility]from [facility] Saline [facility] Urinary Cath still in place: No Assessment/Plan Assessment/Plan 47-year-old female with: 1. Recurrent pleural effusions, likely malignant secondary to metastatic adenocarcinoma. Patient is a mostly symptomatic from her large left pleural effusion, status post a left thoracentesis last night with removal of 2 L of pleural fluids. She does have stable right pleural effusion that has no change management administrator the past few months. Given the fact that it is malignant and recurrent we will not tap the right side as long as she stable on supplemental oxygen. She will be discharged home today, she needs to follow-up as soon as possible with oncology as an outpatient and initiate treatment if she wishes to do so, otherwise she may need placement of Pleurx valve at least on the left side to manage her recurrent pleural effusions. Patient is aware of those choices currently and would like to think about it. Discharge home, resume outpatient pain management. 2. 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 Ultrasound-guided paracentesis attempted yesterday but not enough ascitic fluids. Again patient is encouraged to seek treatment even if she wants a second opinion to do so as soon as possible. 3. Chronic anemia, likely related to underlying malignancy and also episodes of mild rectal bleeding. Hemoglobin however stable this admission. Prophylaxis: SCDs for DVT prophylaxis, Pepcid for GI prophylaxis. Disposition: Discharge home with home O2, follow-up with pain management outpatient. Follow-up with oncology as soon as possible outpatient. HPI/ROS Admit Date/Time Admit Date/Time Jun 15, 2017 at 18:53 Hx of Present Illness Chief complaint: Shortness of breath History of presenting illness: This is a 47-year-old female with known stage IV metastatic adenocarcinoma possible primary as rectal adenocarcinoma with unfortunately malignant pleural effusions and ascites. She is in the process of getting second opinions in order to get chemotherapy at least or some sort of treatment, she has refused to have a MediPort placed or any treatment started on her last admission here at [facility] present in hospital due to the fact that she want a second opinions. She presented in the ER yesterday with complaints of orthopnea, shortness of breath and dyspnea on exertion despite supplemental oxygen. So there was an issue with her oxygen concentrator the night prior to presentation leading to a worsening of her shortness of breath and her presentation in the emergency department. Chest x-ray yesterday afternoon showed recurrence of left pleural effusion and a stable right pleural effusion. She had emergent thoracentesis yesterday evening with removal of 2 L of pleural fluid from her left pleural space space. She feels better this morning, chest x-ray postprocedure and this morning do not show any pneumothoraces, she does have some infiltrate we can see on the chest x-ray this morning likely related to re-expansion of the left lung. Patient is afebrile, she is back on her usual 2-3 L nasal cannula and comfortable. She will be discharged home today. ROS Constitutional: no complaints Respiratory: other, shortness of breath Cardiovascular: orthopenea, paroxysmal nocturnal dyspnea Gastrointestinal: no complaints Genitourinary: no complaints Skin: no complaints Neurologic: no complaints Endocrine: no complaints Lymphatic: no complaints Immunologic: no complaints PMH/Family/Social Past Medical History Chronic hypoxemia secondary to recurrent malignant pleural effusions Chronic ascites, mild. Medical History: cancer (Metastatic stage IV adenocarcinoma, rectal likely) Past Surgical History Past Surgical Hx: no surgical history Family History Significant Family History: no pertinent family hx Social History Alcohol Use: none Smoking Status: Never smoker Drug Use: none Exam/Review of Systems Vital Signs Vitals Vital Signs Date Time Temp Pulse Resp B/P Pulse Ox O2 Delivery O2 Flow Rate FiO2 06/16/17 07:52 98.0 94 18 101/64 96 06/15/17 20:30 Nasal Cannula 3.0 Intake and Output 06/15/17 06/15/17 06/16/17 15:00 23:00 07:00 Intake Total 300 ml Balance 300 ml Exam Constitutional: alert, frail, oriented, other (cachectic) Respiratory: diminished breath sounds (Right base), other (Better air movement left lung) Cardiovascular: nl pulses, regular rate and rhythm Gastrointestinal: ascites (Minimal), non-tender, soft Musculoskeletal: nl extremities to inspection Extremities: normal pulses, other (No edema, clubbing or cyanosis) 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: TAPE CALENDER 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, nl mental status, nl speech, nl strength (At baseline) Labs Result Diagram: 06/16/17 0531 06/16/17 0531 Medications Medications Current Medications Oxycodone/ Acetaminophen (Endocet (10 325)) 1 tab Q6H PO ; Start 06/15/17 at 17 :00 Ondansetron HCl (Zofran Inj) 4 mg Q6H PRN IV NAUSEA AND/OR VOMITING; Start 08/21 at 17:00 Acetaminophen (Tylenol Tab) 650 mg Q6H PRN PO PAIN LEVEL 1-3 OR FEVER; Start at 17:00 Docusate Sodium (Colace) 100 mg Q12H PRN PO CONSTIPATION; Start 06/15/17 at 17: 00 Magnesium Hydroxide (Milk Of Mag) 30 ml DAILY PRN PO CONSTIPATION; Start at 17:00 Bisacodyl (Dulcolax Supp) 10 mg DAILY PRN VT CONSTIPATION; Start 06/15/17 at 17 :00 Famotidine (Pepcid) 20 mg Q12 PO Last administered on 06/15/17t 20:10; Admin Dose 20 MG; Start 06/15/17 at 21:00 Morphine Sulfate (morphine) 2 mg Q4H PRN IV PAIN Last administered on t 04:40; Admin Dose 2 MG; Start 06/15/17 at 17:00 Procedures Procedures PROCEDURE: US guided left thoracentesis. CLINICAL INDICATION: Shortness of breath. Left pleural effusion. TECHNIQUE: Prior to the procedure, informed consent was obtained. The risks, benefits, and alternatives were explained to the patient or the patient's family, including but not limited to bleeding, infection, pain, visceral or vascular damage, shock, pneumothorax, chest tube placement, air embolism, and . The patient or the patient's family understood the risks and the alternatives and wished to proceed with the study. Informed written consent was obtained. A procedural pause was performed. The patient's name, date of , and procedure to be performed were verified. Ultrasound of the left hemithorax was performed in the axial and sagittal planes. A left pleural effusion is noted. Utilizing ultrasound guidance, optimal location for entry to the pleural cavity was ascertained. The overlying skin was prepped and draped in the usual sterile fashion. Approximately 10 ml of 1% Xylocaine was injected locally for pain control. Using ultrasound guidance, a 5-Slovenian Yueh catheter was introduced into the left pleural space without difficulty. Fluid was aspirated. COMPARISON: 05/25/2017. FINDINGS: Initial ultrasound demonstrates fluid in the left pleural space. Approximately 1.9 liters of serous fluid was aspirated and discarded. IMPRESSION: 1. Satisfactory ultrasound-guided left thoracentesis. RPTAT: QQ .Frankie Mccullough MD, Date Time Electronically viewed and signed by .Frankie Mccullough MD, on 06/15/2017 17:53 PROCEDURE: Chest Radiograph. CLINICAL INDICATION: No effusion TECHNIQUE: Single frontal chest radiograph. COMPARISON: Chest radiograph 06/15/2017 FINDINGS: A moderate right pleural effusion with adjacent atelectasis/infiltrate is grossly unchanged.. There is significant worsening air space disease in the left perihilar region and lung base as well as probable reaccumulation of small left pleural effusion. The lungs are otherwise clear. The bones are intact. IMPRESSION: 1. Significant worsening air space disease in the left perihilar region and lung base which may represent infiltrate or pulmonary edema. 2. Probable partial recurrence of small left pleural effusion. 3. Stable moderate right pleural effusion with adjacent atelectasis. RPTAT: HJBF .Antwan Burgos MD, Date Time Electronically viewed and signed by .Antwan Burgos MD, on 2016 08:15 PORTIA TORRE Jun 16, 2017 09:19
--- NOTE | 2017-06-16 10:00 | PDOCDIS ---
Discharge Instructions CONDITION Patient Condition: Stable HOME CARE INSTRUCTIONS: Diet Instructions: Regular ACTIVITY: Activity Restrictions: Slowly Increase Activity FOLLOW UP/APPOINTMENTS Follow-up Plan Follow-up with primary care physician within 1-2 weeks Follow-up with oncology as soon as possible as outpatient, patient needs to seek treatment since she does not want to be palliative, she is getting more symptomatic. Follow-up with pain management. PORTIA TORRE Jun 16, 2017 10:00
--- NOTE | 2017-06-16 15:21 | DS ---
Date/Time of Note Date/Time of Note DATE: 06/16/17 TIME: 15:19 Discharge Summary Admission/Discharge Info Admit Date/Time Jun 15, 2017 at 18:53 Discharge Date/Time Jun 16, 2017 at 14:28 Discharge Diagnosis Recurrent large left pleural effusion, malignant Stable moderate right pleural effusion Stable mild ascites Stage IV, metastatic, rectal adenocarcinoma Patient Condition: Good Consults None Procedures Left thoracentesis with removal of 1.9 L of pleural fluid Hx of Present Illness Chief complaint: Shortness of breath History of presenting illness: This is a 47-year-old female with known stage IV metastatic adenocarcinoma possible primary as rectal adenocarcinoma with unfortunately malignant pleural effusions and ascites. She is in the process of getting second opinions in order to get chemotherapy at least or some sort of treatment, she has refused to have a MediPort placed or any treatment started on her last admission here at [place] present in hospital due to the fact that she want a second opinions. She presented in the ER yesterday with complaints of orthopnea, shortness of breath and dyspnea on exertion despite supplemental oxygen. So there was an issue with her oxygen concentrator the night prior to presentation leading to a worsening of her shortness of breath and her presentation in the emergency department. Chest x-ray yesterday afternoon showed recurrence of left pleural effusion and a stable right pleural effusion. She had emergent thoracentesis yesterday evening with removal of 2 L of pleural fluid from her left pleural space space. She feels better this morning, chest x-ray postprocedure and this morning do not show any pneumothoraces, she does have some infiltrate we can see on the chest x-ray this morning likely related to re-expansion of the left lung. Patient is afebrile, she is back on her usual 2-3 L nasal cannula and comfortable. She will be discharged home today. Hospital Course Patient tolerated the thoracentesis well, this morning her chest x-ray stable, she did not have enough fluid for paracentesis. She is discharged home with outpatient follow-up with oncology as soon as possible regarding a treatment plan. Follow-up with pain management. Home Meds Reported Medications Oxycodone HCl/Acetaminophen (Percocet 10-325 mg Tablet) 1 Each Tablet, 1 EACH PO Q6H, TAB 06/15/17 Discontinued Reported Medications Acetaminophen* (Acetaminophen*) 500 MG Extra Strength Tablet, 500 MG PO Q4H Y for PAIN AND OR ELEVATED TEMP, TAB 05/21/17 Discontinued Scripts Hydrocodone Bit-Acetaminophen (Hydrocodone Bit-APAP) 5-325MG Tablet, 2 TAB PO Q6H Y for SEVERE PAIN LEVEL 7-10, #60 TAB Prov:PORTIA TORRE 05/28/17 Follow-up Plan Follow-up with primary care physician within 1-2 weeks Follow-up with oncology as soon as possible as outpatient, patient needs to seek treatment since she does not want to be palliative, she is getting more symptomatic. Follow-up with pain management. Primary Care Provider Not On Staff Doctor Time spent on discharge: > 30 minutes Pending Labs Laboratory Tests Test 06/16/17 05:31 White Blood Count 4.910^3/ul (4.8-10.8) Red Blood Count 3.8410^6/ul (4.20-5.40) Hemoglobin 10.2g/dl (12.0-16.0) Hematocrit 31.4% (37.0-47.0) Mean Corpuscular Volume 81.8fl (82.0-101.0) Mean Corpuscular Hemoglobin 26.6pg (29.0-33.0) Mean Corpuscular Hemoglobin Concent 32.5g/dl (32.0-37.0) Red Cell Distribution Width 17.0% (11.5-14.5) Platelet Count 33649^3/UL (140-415) Mean Platelet Volume 10.1fl (7.4-10.4) Neutrophils % 57.4% (39.0-77.0) Lymphocytes % 26.1% (15.0-51.0) Monocytes % 8.6% (0.0-11.0) Eosinophils % 6.9% (0.0-7.0) Basophils % 0.8% (0.0-2.0) Nucleated Red Blood Cells % 0.0/100WBC (0.0-0.0) Neutrophils # (Manual) 2.810^3/ul (1.7-7.5) Lymphocytes # 1.310^3/ul (0.8-2.9) Monocytes # 0.410^3/ul (0.3-0.9) Eosinophils # 0.310^3/ul (0.0-0.5) Basophils # 0.010^3/ul (0.0-0.1) Nucleated Red Blood Cells # 0.010^3/ul (0.0-0.0) Prothrombin Time 13.3Sec (12.2-14.2) Prothrombin Time Ratio 1.0 INR International Normalized Ratio 1.01 Activated Partial Thromboplast Time 32.9Sec (25.0-35.0) Sodium Level 136mmol/L (135-144) Potassium Level 3.7mmol/L (3.5-5.1) Chloride Level 103mmol/L (97-110) Carbon Dioxide Level 28mmol/L (21-31) Anion Gap 9 (8-16) Blood Urea Nitrogen 11mg/dl (7-20) Creatinine 0.56mg/dl (0.44-1.00) Glucose Level 121mg/dl (70-220) Calcium Level 8.6mg/dl (8.4-10.2) Phosphorus Level 4.4mg/dl (2.5-4.9) Magnesium Level 1.9mg/dl (1.7-2.5) Total Bilirubin 0.1mg/dl (0.2-1.3) Direct Bilirubin 0.00mg/dl (0.00-0.20) Indirect Bilirubin 0.1mg/dl (0-1.1) Aspartate Amino Transf (AST/SGOT) 74IU/L (15-46) Alanine Aminotransferase (ALT/SGPT) 47IU/L (13-69) Alkaline Phosphatase 355IU/L (42-121) Total Protein 5.9g/dl (6.1-8.1) Albumin 2.7g/dl (3.3-4.9) Globulin 3.20g/dl (1.3-3.2) Albumin/Globulin Ratio 0.84 PORTIA TORRE Jun 16, 2017 15:21
== END 2017-06-16 14:28 | disposition home or self-care (01) ==
LOC: E/R 13:29 → PP2 18:53
PROVIDERS: ADMIT Internal Medicine; ATTEND Internal Medicine
DX: C20 Malignant neoplasm of rectum (principal); J91.0 Malignant pleural effusion; R18.8 Other ascites
CPT/HCPCS: 32555; 36415; 71010; 76705; 76942; 80053; 83735; 83880; 84100; 84703; 85025; 85610; 85730; 87081; 93005; 96374; 96376; J2270; Z7500; Z7502; Z7610; G0378

== ENCOUNTER 2017-06-27 17:25 | Inpatient (IN) | payer OTHER ==
[~2017-06-27] VITALS: Ht 157.5 cm; Wt 63.5 kg
[~2017-06-27 17:25] MED LIST changes: -ACET-141 PO; -HYDR-3498 PO; +OXYC-209 PO
--- NOTE | 2017-06-27 17:57 | ERA ---
ER Documentation Chief Complaint Date/Time DATE: 06/27/17 TIME: 17:53 Chief Complaint sob w/ ap with bilat rib pain, right breast swollen/painful, hx colo cancer HPI 47-year-old female with a history of stage IV metastatic adenocarcinoma, recurrent malignant pleural effusions and ascites presents to the ED complaining of a 2 day history of increasing shortness of breath and orthopnea. She has also noticed increasing swelling of her left breast. Mild abdominal distention and generalized, crampy, nonradiating pain but no nausea, vomiting, diarrhea or constipation. She denies hematemesis, hematochezia or melanotic stools. Chronic left greater than right lower extremity swelling which is actually improving but no redness or calf pain. Denies headache or visual changes. No neck or back pain. Denies chest pain or palpitations. No fevers or chills ROS All systems reviewed and are negative except as per history of present illness. Medications Home Meds Reported Medications Oxycodone HCl/Acetaminophen (Percocet 10-325 mg Tablet) 1 Each Tablet, 1 EACH PO Q6H, TAB 06/15/17 Allergies Allergies: Coded Allergies: No Known Allergy (Unverified , 06/27/17) PMhx/Soc Reviewed in chart. As per HPI. History of Surgery: No Anesthesia Reaction: No Hx 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 Disorder: No Hx Respiratory Disorders: Yes (Shortness of Breath) Hx Cardiac Disorders: No Hx Psychiatric Problems: Yes (Nervousness, Anxiety, Anger, Short Temper, Sadness) Hx Miscellaneous Medical Probl: Yes (Colon Rectal Cancer) Hx Alcohol Use: No Hx Substance Use: No Hx Tobacco Use: No Smoking Status: Never smoker FmHx Reviewed in chart. Not relevant to presenting complaint. Physical Exam Vitals Vital Signs Date Time Temp Pulse Resp B/P Pulse Ox O2 Delivery O2 Flow Rate FiO2 06/27/17 18:10 109 20 137/89 99 Nasal Cannula 2.0 06/27/17 17:56 Nasal Cannula 2 06/27/17 17:28 98.9 100 24 121/79 96 Physical Exam Const: Alert, ill-appearing, moderate distress Head: Atraumatic Eyes: Normal Conjunctiva ENT: Normal External Ears, Nose and Mouth. Neck: Full range of motion. Tender. Resp: Sounds markedly diminished left greater than right lung mcintyre. No wheezing. Cardio: Regular rate and rhythm, no murmurs Chest Wall: Left breast swelling. No tenderness or nipple changes. Abd: Soft, distended, mild diffuse tenderness. No rebound or guarding. Skin: No petechiae or rashes Back: No midline or flank tenderness Ext: 0-1+ edema left greater than right. No calf swelling or tenderness. Neur: Awake and alert Psych: Normal Mood and Affect Result Diagram: 06/28/17 0454 06/28/17 0454 Results 24 hrs Laboratory Tests Test 06/27/17 17:55 06/27/17 19:10 White Blood Count 7.410^3/ul Red Blood Count 4.1010^6/ul Hemoglobin 10.8g/dl Hematocrit 32.8% Mean Corpuscular Volume 80.0fl Mean Corpuscular Hemoglobin 26.3pg Mean Corpuscular Hemoglobin Concent 32.9g/dl Red Cell Distribution Width 16.6% Platelet Count 81055^3/UL Mean Platelet Volume 10.5fl Neutrophils % 65.5% Lymphocytes % 20.9% Monocytes % 7.5% Eosinophils % 5.2% Basophils % 0.5% Nucleated Red Blood Cells % 0.0/100WBC Neutrophils # 4.910^3/ul Lymphocytes # 1.610^3/ul Monocytes # 0.610^3/ul Eosinophils # 0.410^3/ul Basophils # 0.010^3/ul Nucleated Red Blood Cells # 0.010^3/ul Prothrombin Time 13.0Sec Prothrombin Time Ratio 1.0 INR International Normalized Ratio 0.98 Activated Partial Thromboplast Time 32.9Sec Sodium Level 134mmol/L Potassium Level 4.2mmol/L Chloride Level 101mmol/L Carbon Dioxide Level 29mmol/L Anion Gap 8 Blood Urea Nitrogen 13mg/dl Creatinine 0.55mg/dl Glucose Level 121mg/dl Calcium Level 8.2mg/dl Total Bilirubin 0.1mg/dl Direct Bilirubin 0.00mg/dl Indirect Bilirubin 0.1mg/dl Aspartate Amino Transf (AST/SGOT) 44IU/L Alanine Aminotransferase (ALT/SGPT) 30IU/L Alkaline Phosphatase 345IU/L Total Protein 6.3g/dl Albumin 2.8g/dl Globulin 3.50g/dl Albumin/Globulin Ratio 0.80 Current Medications Medications (Trade) Dose Ordered Sig/Dong Route PRN Reason Start Time Stop Time Status Last Admin Dose Admin Morphine Sulfate (morphine) 2 mg ONCE ONCE IV 06/27/17 18:30 06/27/17 18:31 DC 06/27/17 18:40 PROCEDURE: XR Chest. CLINICAL INDICATION: Shortness of breath. TECHNIQUE: Single frontal view. COMPARISON: 06/16/2017. FINDINGS: There is a moderate right pleural effusion and large left pleural effusion. There is atelectasis bilaterally in the mid and lower lung zones with left worse than right. The heart size is normal. There is no pleural effusion. There is no pneumothorax. IMPRESSION: 1. Moderate right pleural effusion and large left pleural effusion. 2. Atelectasis in the mid and lower lung zones with left worse than right. 3. Worse appearance of the left hemithorax when compared with 06/16/2017. RPTAT: QQ .Frankie Mccullough MD, MD Date Time Electronically viewed and signed by .Frankie Mccullough MD, on 06/27/2017 18:43 .R/ Procedures/MDM DOCUMENTS REVIEWED: ED nurse, prior ED, prior records MEDICAL DECISION MAKIN-year-old female with a history of stage IV metastatic adenocarcinoma, recurrent malignant pleural effusions and ascites presents to the ED complaining of a 2 day history of increasing shortness of breath and orthopnea. Most recent admission and thoracentesis 2 L on 2016. Patient now presents with worsening shortness of breath due to recurrent effusion and will require thoracentesis. Right breast swelling of uncertain etiology no Doppler evidence of DVT. Second primary is considered. She will be admitted to med/surg observation for thoracentesis, further evaluation and management Counseled patient and family regarding diagnosis, diagnostic results and plan for admission. CALLS/CONSULTS: Time 19:55, Dr. Lundy, Recommends [facility] observation PATIENT CARE TRANSITIONED: Time: 20:05, Dr. Lundy. Departure Diagnosis: Primary Impression: Shortness of breath Additional Impressions: Recurrent left pleural effusion Recurrent right pleural effusion Metastatic adenocarcinoma Ascites Qualified Code: R18.0 - Malignant ascites Condition: Serious SABRINA TIRADO MD Jun 27, 2017 17:57
[2017-06-27 18:15] LABS: BASOPHILS % 0.5 % (0.0-2.0); EOSINOPHILS # 0.4 10^3/ul (0.0-0.5); EOSINOPHILS % 5.2 % (0.0-7.0); HEMATOCRIT 32.8 % (37.0-47.0); HEMOGLOBIN 10.8 g/dl (12.0-16.0); LYMPHOCYTES # 1.6 10^3/ul (0.8-2.9); LYMPHOCYTES % 20.9 % (15.0-51.0); MEAN CORPUSCULAR HEMOGLOBIN 26.3 pg (29.0-33.0); MEAN CORPUSCULAR HGB CONC 32.9 g/dl (32.0-37.0); MEAN PLATELET VOLUME 10.5 fl (7.4-10.4); MONOCYTE # 0.6 10^3/ul (0.3-0.9); MONOCYTES % 7.5 % (0.0-11.0); NEUTROPHIL # 4.9 10^3/ul (1.6-7.5); NEUTROPHILS % 65.5 % (39.0-77.0); PLATELET COUNT 549 10^3/UL (140-415); RED CELL DISTRIBUTION WIDTH 16.6 % (11.5-14.5); WHITE BLOOD COUNT 7.4 10^3/ul (4.8-10.8)
[2017-06-27 18:30] LABS: INR 0.98
[2017-06-27] MEDS ORDERED: morphine 2 MG INJ IV ONE (18:30)
[2017-06-27 18:31] LABS: PARTIAL THROMBOPLASTIN TIME 32.9 Sec (25.0-35.0)
--- NOTE | 2017-06-27 18:44 | RADRPT ---
PROCEDURE: XR Chest. CLINICAL INDICATION: Shortness of breath. TECHNIQUE: Single frontal view. COMPARISON: 06/16/2017. FINDINGS: There is a moderate right pleural effusion and large left pleural effusion. There is atelectasis pastora aterally in the mid and lower lung zones with left worse than right. The heart size is normal. There is no pleural effusion. There is no pneumothorax. IMPRESSION: 1. Moderate right pleural effusion and large left pleural effusion. 2. Atelectasis in the mid and lower lung zones with left worse than right. 3. Worse appearance of the left hemithorax when compared with 06/16/2017. RPTAT: QQ .Frankie Mccullough MD, Date Time Electronically viewed and signed by .Frankie Mccullough MD, on 06/27/2017 18:43 .R/
[2017-06-27 19:38] LABS: ALBUMIN 2.8 g/dl (3.3-4.9); ALBUMIN/GLOBULIN RATIO 0.8; BILIRUBIN,INDIRECT 0.1 mg/dl (0-1.1); BILIRUBIN,TOTAL 0.1 mg/dl (0.2-1.3); CALCIUM 8.2 mg/dl (8.4-10.2); CREATININE 0.55 mg/dl (0.44-1.00); POTASSIUM 4.2 mmol/L (3.5-5.1); TOTAL PROTEIN 6.3 g/dl (6.1-8.1)
--- NOTE | 2017-06-27 19:41 | RADRPT ---
PROCEDURE: Left upper extremity venous ultrasound CLINICAL INDICATION: Left arm pain and swelling. Deep venous thrombosis. TECHNIQUE: Willard scale, color doppler, spectral doppler ultrasound imaging of the venous system of the left upper extremity. Augmentation maneuvers were utilized. COMPARISON: No prior studies are available for comparison. FINDINGS: LEFT: Internal jugular vein: Patent. Subclavian vein: Patent. Axillary vein: Patent. Brachial vein: Patent. Basilic vein: Patent. Cephalic vein: Patent. Radial vein: Patent. Ulnar vein: Patent. IMPRESSION: No evidence of a deep vein thrombosis involving the left upper extremity. RPTAT: AADD .Darius Morris MD, MD Date Time Electronically viewed and signed by .Darius Morris MD, MD on 06/27/2017 19:41 .B/
[2017-06-27] MEDS ORDERED: ONDANSETRON 4 MG INJ IV PRN (20:30)
[2017-06-27] MEDS ORDERED: ACETAMINOPHEN 325 MG TAB PO PRN (20:30)
[2017-06-27 21:55] VITALS: Ht 157.5 cm; Wt 63.5 kg
[2017-06-27 21:56] VITALS: BP 125/77; PULSE 98; RESP 18
[2017-06-27] MEDS ORDERED: ZOLPIDEM 5 MG TAB PO PRN (22:30)
[2017-06-27] MEDS ORDERED: NACL 0.9% 3 ML SYG IV SCH (22:30)
[2017-06-27] MEDS ORDERED: HEPARIN 5,000 UNIT/0.5 ML VIAL SC SCH (22:30)
[2017-06-27] MEDS: FAMOTIDINE 20 MG TAB PO SCH (22:42)
[2017-06-27] MEDS: OXYCODONE/ACETAMINOPHEN (10/325) TAB PO PRN (22:42)
[2017-06-27] MEDS: DOCUSATE SODIUM 100 MG CAP PO SCH (22:42)
[2017-06-27] MEDS: morphine 2 MG INJ IV PRN (23:05)
[2017-06-28] MEDS: morphine 2 MG INJ IV PRN ×4 (03:57→18:39)
[2017-06-28] MEDS: OXYCODONE/ACETAMINOPHEN (10/325) TAB PO PRN ×2 (05:24→16:40)
[2017-06-28 05:32] LABS: BASOPHILS % 0.6 % (0.0-2.0); EOSINOPHILS # 0.6 10^3/ul (0.0-0.5); HEMATOCRIT 33.4 % (37.0-47.0); HEMOGLOBIN 10.2 g/dl (12.0-16.0); LYMPHOCYTES # 1.6 10^3/ul (0.8-2.9); LYMPHOCYTES % 23.3 % (15.0-51.0); MEAN CORPUSCULAR HEMOGLOBIN 25.2 pg (29.0-33.0); MEAN CORPUSCULAR HGB CONC 30.5 g/dl (32.0-37.0); MEAN CORPUSCULAR VOLUME 82.5 fl (82.0-101.0); MONOCYTE # 0.6 10^3/ul (0.3-0.9); MONOCYTES % 8.4 % (0.0-11.0); NEUTROPHIL # 4.2 10^3/ul (1.6-7.5); NEUTROPHILS % 59.4 % (39.0-77.0); PLATELET COUNT 474 10^3/UL (140-415); RED BLOOD COUNT 4.05 10^6/ul (4.20-5.40); RED CELL DISTRIBUTION WIDTH 16.9 % (11.5-14.5)
[2017-06-28 05:49] LABS: CALCIUM 8.6 mg/dl (8.4-10.2); CREATININE 0.62 mg/dl (0.44-1.00); POTASSIUM 4.6 mmol/L (3.5-5.1)
[2017-06-28 08:20] VITALS: BP 116/75; RESP 17
--- NOTE | 2017-06-28 08:37 | HP ---
Date/Time of Note Date/Time of Note DATE: 06/28/17 TIME: 08:30 Assessment/Plan VTE Prophylaxis VTE Prophylaxis Intervention: heparin Lines/Catheters IV Catheter Type (from [facility]): Peripheral IV Assessment/Plan Assessment/Plan [facility] 1. 47-year-old woman with recurrent pleural effusions, likely malignant secondary to metastatic adenocarcinoma. Now with sharp asymmetry of the breasts and heaviness on the left suggestive of a seroma. She has never had mammography before, and I wondered about the possibility of a breast primary carcinoma -- though no distinct mass palpated on exam. She is symptomatic from her large left pleural effusion. * Ultrasound-guided thoracentesis this afternoon. * Anticipate paracentesis tomorrow to help alleviate her breathing difficulties. * Hold heparin for another 24h after these procedures, with SCDs for DVT prophylaxis. 2. Metastatic adenocarcinoma, stage IV, with multiple intra-abdominal masses, adnexal cystic masses, large rectal mass, recurrent malignant pleural effusions. She continues to hesitate regarding treatment. * Full-code 3. Chronic anemia, without active rectal bleeding. 4. Prophylaxis: SCDs for DVT prophylaxis, Pepcid for GI prophylaxis. 5. Disposition * Discharge home with home O2 * Follow-up with pain management outpatient. * Follow-up with oncology as soon as possible as an outpatient. Bobby Lundy MD PhD [phone] HPI/ROS Admit Date/Time Admit Date/Time Jun 27, 2017 at 20:04 Hx of Present Illness Chief complaint: Shortness of breath HPI: Ms Lamas is a 47-year-old woman with a diagnosis of stage IV metastatic adenocarcinoma, possibly a rectal adenocarcinoma primary, who was hospitalized two weeks ago with similar symptoms, malignant pleural effusions bilaterally, and ascites. Three days ago she began to notice swelling of the left breast, with a "heavy" feeling unlike anything she has experienced before. No or breast feeding history. Two days ago she began having more difficulty breathing, though with no chest pain or pleurisy -- "though it aches once in a while." Chest x-ray last night showed recurrence of the severe left pleural effusion with a moderate, stable right pleural effusion. Lower extremity Doppler showed no DVT. She is still doing some personal research and contemplating chemotherapy. She was admitted 06/15/17 with orthopnea and dyspnea on exertion despite supplemental oxygen. She had a problem with her home oxygen concentrator the night prior to that presentation leading to a worsening of her shortness of breath. She had emergent thoracentesis that evening with removal of 2 L of pleural fluid from the left pleural space. PMH/Family/Social Past Medical History Chronic hypoxemia secondary to recurrent malignant pleural effusions Chronic ascites, mild. Medical History: cancer (Metastatic stage IV adenocarcinoma, rectal likely) Past Surgical History Past Surgical Hx: no surgical history Family History Significant Family History: no pertinent family hx Social History Alcohol Use: none Smoking Status: Never smoker Drug Use: none ROS Constitutional: no complaints Respiratory: other, shortness of breath Cardiovascular: orthopenea, paroxysmal nocturnal dyspnea Gastrointestinal: occasional bright red blood per rectum, with a history of hemorrhoids. Stools are alternately "liquidy" or firm, and lately "cloudy." Genitourinary: no complaints Skin: no complaints Neurologic: no visual change or headache Endocrine: no complaints Lymphatic: no complaints Immunologic: no complaints PMH/Family/Social Past Medical History Medical History: no pertinent history Past Surgical History Past Surgical Hx: no surgical history Social History by her side in her room Smoking Status: Never smoker Exam/Review of Systems Vital Signs Vitals Vital Signs Date Time Temp Pulse Resp B/P Pulse Ox O2 Delivery O2 Flow Rate FiO2 06/28/17 08:20 98.0 103 17 116/75 100 06/28/17 04:43 2.0 06/27/17 22:03 Nasal Cannula Intake and Output 06/27/17 06/27/17 06/28/17 15:00 23:00 07:00 Intake Total 200 ml 800 ml Output Total 150 ml 900 ml Balance 50 ml -100 ml Exam Exam Constitutional: alert, frail and cachectic-appearing Respiratory: diminished breath sounds at both bases, with moderate dullness 1/2 -way bilaterally. No egophony, but with symmetrically decreased vocal fremitus. Cardiovascular: Regular rhythm, normal rate, well-perfused extremities. Gastrointestinal: Mild distension, non-tender, soft. Musculoskeletal: no arthritis, symmetric pulses, with no edema, clubbing or cyanosis. 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: Oriented, intact mentation and speech, cranial nerves intact, normal strength given her history. Toes downgoing. Labs Result Diagram: 06/28/17 0454 06/28/17 045 Medications Medications Current Medications Oxycodone/ Acetaminophen (Endocet (10/ 325)) 1 tab Q6H PRN PO Pain Last administered on 06/28/17 05:24; Admin Dose 1 TAB; Start 06/27/17 at 22:30 Docusate Sodium (Colace) 100 mg Q12H PO Last administered on 06/27/17 22:42; Admin Dose 100 MG; Start 06/27/17 at 22:30 Zolpidem Tartrate (Ambien) 5 mg QHS PRN PO SLEEP; Start 06/27/17 at 22:30 Famotidine (Pepcid) 20 mg Q12 PO Last administered on 06/27/17 22:42; Admin Dose 20 MG; Start 06/27/17 at 22:30 Heparin Sodium (Porcine) (Heparin (5000 Units/0.5 ml)) 5,000 unit ONCE SC Last administered on 06/27/17 22:44; Admin Dose 5,000 UNIT; Start 06/27/17 at 22:30; Stop 06/28/17 at 08:59 Morphine Sulfate (morphine) 2 mg Q4H PRN IV moderate to severe chest pain Last administered on 06/28/17 03:57; Admin Dose 2 MG; Start 06/27/17 at 22:30 LEIA LUNDY M.D. Jun 28, 2017 08:37
[2017-06-28] MEDS: FAMOTIDINE 20 MG TAB PO SCH ×2 (10:03→21:00)
[2017-06-28] MEDS: DOCUSATE SODIUM 100 MG CAP PO SCH ×2 (10:03→22:46)
[2017-06-28] MEDS ORDERED: LIDOCAINE 1% (MPF) 5 ML VIAL ONE (11:57)
--- NOTE | 2017-06-28 12:24 | RADRPT ---
PROCEDURE: XR Chest. CLINICAL INDICATION: Shortness of breath. Post left thoracentesis. TECHNIQUE: Single frontal view. COMPARISON: 06/27/2017. FINDINGS: There is a moderate right pleural effusion, slightly larger than seen previously. Previously noted l arge left pleural effusion is no longer present. There is improved aeration of the left lung and wor se aeration of the right lung. The heart size is normal. There is no pneumothorax. IMPRESSION: 1. Larger right pleural effusion and worse appearance of the right lung. 2. Following left thoracentesis the left pleural effusion is no longer present and there is improve d aeration of the left lung. 3. No pneumothorax. RPTAT: QQ .Frankie Mccullough MD, MD Date Time Electronically viewed and signed by .Frankie Mccullough MD, on 06/28/2017 12:23 .R/
--- NOTE | 2017-06-28 12:45 | RADRPT ---
PROCEDURE: US guided left thoracentesis. CLINICAL INDICATION: Shortness of breath. Left pleural effusion. TECHNIQUE: Prior to the procedure, informed consent was obtained. The risks, benefits, and alternatives were e xplained to the patient or the patient's family, including but not limited to bleeding, infection, p ain, visceral or vascular damage, shock, pneumothorax, chest tube placement, air embolism, and . The patient or the patient's family understood the risks and the alternatives and wished to proce ed with the study. Informed written consent was obtained. A procedural pause was performed. The patient's name, date of , and procedure to be performed were verified. Ultrasound of the left hemithorax was performed in the axial and sagittal planes. A left pleural eff usion is noted. Utilizing ultrasound guidance, optimal location for entry to the pleural cavity was ascertained. The overlying skin was prepped and draped in the usual sterile fashion. Approximately 10 ml of 1% Xylocaine was injected locally for pain control. Using ultrasound guidance, a 5-Polish Yueh catheter was introduced into the left pleural space without difficulty. Fluid was aspirated. COMPARISON: Chest x-ray dated 06/27/2017 [email or web address] FINDINGS: Initial ultrasound demonstrates fluid in the left pleural space. Approximately 1.9 liters of serous fluid was aspirated and discarded. IMPRESSION: 1. Satisfactory ultrasound-guided left thoracentesis. RPTAT: QQ .Frankie Mccullough MD, Date Time Electronically viewed and signed by .Frankie Mccullough MD, on 06/28/2017 12:45 .R/
[2017-06-28 14:00] VITALS: BP 111/78; RESP 15
[2017-06-28 19:35] VITALS: BP 108/70; RESP 20
[2017-06-29] MEDS: morphine 2 MG INJ IV PRN ×5 (01:41→23:47)
[2017-06-29 02:31] VITALS: BP 123/81; RESP 18
[2017-06-29 07:40] VITALS: BP 116/79; RESP 18
[2017-06-29] MEDS: FAMOTIDINE 20 MG TAB PO SCH ×2 (08:50→21:28)
[2017-06-29] MEDS: DOCUSATE SODIUM 100 MG CAP PO SCH ×2 (09:36→22:30)
[2017-06-29] MEDS: OXYCODONE/ACETAMINOPHEN (10/325) TAB PO PRN ×2 (09:56→18:13)
--- NOTE | 2017-06-29 12:21 | PN ---
Date/Time of Note Date/Time of Note DATE: 06/29/17 TIME: 12:13 Assessment/Plan VTE Prophylaxis VTE Prophylaxis Intervention: LMWH, SCD's Lines/Catheters IV C[facility]ter Type (from [facility]): Saline Lock Assessment/Plan Assessment/Plan [facility] 1. 47-year-old woman with recurrent bilateral pleural effusions, likely malignant secondary to metastatic adenocarcinoma. CXR shows clearing of the left lung s/p thoracentesis yesterday. She has more abdominal distension now, with mild rebound and diffuse tenderness. No fever to suggest SBP. * Ultrasound-guided paracentesis this afternoon. 2. Moderate asymmetry of the breasts and heaviness on the left suggestive of a seroma. * Ultrasound of the left breast to better understand swelling there. 3. Metastatic adenocarcinoma, stage IV, with multiple intra-abdominal masses, adnexal cystic masses, large rectal mass, recurrent malignant pleural effusions. We discussed again the potential benefits of chemotherapy, but she is holding out for a more focused treatment (eg. immunotherapy) that won't have the side effects of traditional chemotherapy. * Full-code 4. Chronic anemia, without active rectal bleeding. Hct stable yesterday at 34%. * Repeat labs tomorrow. 5. Prophylaxis: SCDs for DVT prophylaxis, Pepcid for GI prophylaxis. 6. Disposition * Anticipate discharge home with home O2 * Follow-up with pain management outpatient. * Follow-up with oncology as soon as possible as an outpatient. Bobby Lundy MD PhD [phone] Subjective 24 Hr Interval Summary Free Text/Dictation She thinks she has slightly easier breathing since the thoracentesis yesterday. But she has more abdominal pain now and more swelling. Also still concerned about the swelling in the left breast. No nausea, but also poor appetite and little energy. Exam/Review of Systems Vital Signs Vitals Vital Signs Date Time Temp Pulse Resp B/P Pulse Ox O2 Delivery O2 Flow Rate FiO2 06/29/17 07:50 Nasal Cannula 3.0 06/29/17 07:40 98.0 103 18 116/79 96 Intake and Output 06/28/17 06/28/17 06/29/17 15:00 23:00 07:00 Intake Total 700 ml 350 ml Output Total 700 ml Balance 700 ml -350 ml Exam Constitutional: Alert, frail,cachectic-appearing, and with more work-of- breathing. Respiratory: Moderate dullness at the right base. Cardiovascular: Regular rhythm, normal rate, well-perfused extremities. Gastrointestinal: Moderate distension, non-tender, soft. Musculoskeletal: no arthritis, symmetric pulses, with no edema, clubbing or cyanosis. 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: Oriented, intact mentation and speech, cranial nerves intact, normal strength given her history. Toes downgoing. Results Result Diagram: 06/28/174 06/28/174 Medications Medications Current Medications Oxycodone/ Acetaminophen (Endocet (10/ 325)) 1 tab Q6H PRN PO Pain Last administered on 06/29/17 09:56; Admin Dose 1 TAB; Start 06/27/17 at 22:30 Docusate Sodium (Colace) 100 mg Q12H PO Last administered on 06/28/17 22:46; Admin Dose 100 MG; Start 06/27/17 at 22:30 Zolpidem Tartrate (Ambien) 5 mg QHS PRN PO SLEEP; Start 06/27/17 at 22:30 Famotidine (Pepcid) 20 mg Q12 PO Last administered on 06/29/17 08:50; Admin Dose 20 MG; Start 06/27/17 at 22:30 Morphine Sulfate (morphine) 2 mg Q4H PRN IV moderate to severe chest pain Last administered on 06/29/17 08:51; Admin Dose 2 MG; Start 06/27/17 at 22:30 LEIA LUNDY M.D. Jun 29, 2017 12:21
--- NOTE | 2017-06-29 16:38 | RADRPT ---
PROCEDURE: US Abdomen (limited). CLINICAL INDICATION: Abdominal pain and distension. TECHNIQUE: Multiple real-time longitudinal and transverse images of the four quadrants of the abdo men were acquired utilizing a curved array transducer. Images were reviewed on a high-resolution PAC S workstation. COMPARISON: None FINDINGS: There is minimal free fluid in the abdomen. There is not enough fluid to safely aspirate. Paracentes is was not performed. IMPRESSION: 1. Minimal free fluid in the abdomen. 2. Paracentesis not performed. RPTAT: QQ .Frankie Mccullough MD, MD Date Time Electronically viewed and signed by .Frankie Mccullough MD, on 06/29/2017 16:37 .R/
--- NOTE | 2017-06-29 18:40 | RADRPT ---
PROCEDURE: Left breast ultrasound. CLINICAL INDICATION: Left breast pain and swelling. TECHNIQUE: High-resolution sonography of the left breast was performed in the axial and sagittal p lanes. COMPARISON: No prior study is available for comparison. FINDINGS: There is no cystic or solid mass. Normal breast parenchyma is present. There is edema of the subcutaneous adipose tissues in the left breast from the 3 o'clock to 6 o'cloc k position. IMPRESSION: 1. Edema of the subcutaneous adipose tissues in the left breast from the 3 o'clock to 6 o'clock pos ition. 2. No mass demonstrated. 3. Any further management regarding any breast symptoms should be based upon clinical grounds. RPTAT: QQ .Frankie Mccullough MD, MD Date Time Electronically viewed and signed by .Frankie Mccullough MD, on 06/29/2017 18:40 .R/
[2017-06-29] MEDS ORDERED: VITAMIN A & D 5 GM OINT PACKET TOP ONE (19:34)
[2017-06-29 22:05] VITALS: BP 112/68; RESP 19
[2017-06-30] MEDS: OXYCODONE/ACETAMINOPHEN (10/325) TAB PO PRN ×3 (01:07→16:55)
[2017-06-30 01:18] VITALS: BP 122/79; RESP 18
[2017-06-30] MEDS: morphine 2 MG INJ IV PRN ×5 (03:45→22:31)
[2017-06-30 05:26] LABS: BASOPHIL # 0.1 10^3/ul (0.0-0.1); BASOPHILS % 0.8 % (0.0-2.0); EOSINOPHILS # 0.8 10^3/ul (0.0-0.5); EOSINOPHILS % 11.4 % (0.0-7.0); HEMATOCRIT 32.1 % (37.0-47.0); HEMOGLOBIN 9.9 g/dl (12.0-16.0); LYMPHOCYTES # 1.8 10^3/ul (0.8-2.9); LYMPHOCYTES % 24.6 % (15.0-51.0); MEAN CORPUSCULAR HEMOGLOBIN 24.9 pg (29.0-33.0); MEAN CORPUSCULAR HGB CONC 30.8 g/dl (32.0-37.0); MEAN CORPUSCULAR VOLUME 80.9 fl (82.0-101.0); MEAN PLATELET VOLUME 10.4 fl (7.4-10.4); MONOCYTE # 0.7 10^3/ul (0.3-0.9); NEUTROPHIL # 3.8 10^3/ul (1.6-7.5); NEUTROPHILS % 53.1 % (39.0-77.0); PLATELET COUNT 512 10^3/UL (140-415); RED BLOOD COUNT 3.97 10^6/ul (4.20-5.40); RED CELL DISTRIBUTION WIDTH 16.5 % (11.5-14.5); WHITE BLOOD COUNT 7.1 10^3/ul (4.8-10.8)
[2017-06-30 05:50] LABS: CALCIUM 8.2 mg/dl (8.4-10.2); CREATININE 0.6 mg/dl (0.44-1.00); POTASSIUM 4.5 mmol/L (3.5-5.1)
[2017-06-30 08:00] VITALS: BP 105/68; RESP 16
[2017-06-30] MEDS: FAMOTIDINE 20 MG TAB PO SCH ×2 (08:49→20:36)
[2017-06-30] MEDS: DOCUSATE SODIUM 100 MG CAP PO SCH ×2 (08:49→20:36)
--- NOTE | 2017-06-30 09:53 | PN ---
Date/Time of Note Date/Time of Note DATE: 06/30/17 TIME: 09:46 Assessment/Plan VTE Prophylaxis VTE Prophylaxis Intervention: SCD's Lines/Catheters IV C[facility]ter Type (from [facility]): Peripheral IV Assessment/Plan Assessment/Plan 47-year-old female with: 1. Recurrent pleural effusions, likely malignant secondary to metastatic adenocarcinoma. Status post left thoracentesis with removal of 1.9 L of pleural fluid, no complaining of shortness of breath and looking at chest x-ray post left thoracentesis, there is a large right pleural effusion still present, patient agreeable for right thoracentesis. Awaiting thoracentesis of the right pleural effusion today Patient has been reminded again that she needs to seek treatment, these are only palliative thoracentesis were doing and we cannot keep doing it indefinitely. Eventually she will need Pleurx valve if she decides to pursue the palliative route. Likely to be discharged home tomorrow, she needs to follow-up as soon as possible with oncology as an outpatient and initiate treatment if she wishes to do so. 2. 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 Ultrasound-guided paracentesis attempted yesterday but not enough ascitic fluid again, distention likely from metastatic disease and masses. Again patient is encouraged to seek treatment even if she wants a second opinion to do so as soon as possible. 3. Chronic anemia, likely related to underlying malignancy and also episodes of mild rectal bleeding. Hemoglobin however stable this admission. Prophylaxis: SCDs for DVT prophylaxis, Pepcid for GI prophylaxis. Disposition: Right ultrasound-guided thoracentesis today, discharge plan home with home O2 tomorrow, follow-up with pain management outpatient. Follow-up with oncology as soon as possible outpatient. Subjective 24 Hr Interval Summary Free Text/Dictation Patient is slightly more comfortable but still complaining of shortness of breath, chest x-ray post left thoracentesis showing a large right pleural effusion, right thoracentesis pending today. Discharge planning tomorrow morning. Exam/Review of Systems Vital Signs Vitals Vital Signs Date Time Temp Pulse Resp B/P Pulse Ox O2 Delivery O2 Flow Rate FiO2 06/30/17 08:00 97.5 107 16 105/68 95 9/26/17 06:02 2.0 06/29/17 19:52 Nasal Cannula Intake and Output 06/29/17 06/29/17 06/30/17 15:00 23:00 07:00 Intake Total 500 ml 400 ml Output Total 850 ml Balance 500 ml -450 ml Exam Constitutional: alert, frail, oriented, other (Cachectic) Respiratory: diminished breath sounds (Right lung, left base) Cardiovascular: nl pulses, regular rate and rhythm Gastrointestinal: distended, non-tender, soft Musculoskeletal: nl extremities to inspection Extremities: normal pulses 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, nl mental status, nl speech, nl strength Results Result Diagram: 06/30/1742206/30/17 0423 Results 24 hrs Laboratory Tests Test 06/30/17 04:23 White Blood Count 7.1 Red Blood Count 3.97 L Hemoglobin 9.9 L Hematocrit 32.1 L Mean Corpuscular Volume 80.9 L Mean Corpuscular Hemoglobin 24.9 L Mean Corpuscular Hemoglobin Concent 30.8 L Red Cell Distribution Width 16.5 H Platelet Count 512 H Mean Platelet Volume 10.4 Neutrophils % 53.1 Lymphocytes % 24.6 Monocytes % 10.0 Eosinophils % 11.4 H Basophils % 0.8 Nucleated Red Blood Cells % 0.0 Neutrophils # 3.8 Lymphocytes # 1.8 Monocytes # 0.7 Eosinophils # 0.8 H Basophils # 0.1 Nucleated Red Blood Cells # 0.0 Sodium Level 132 L Potassium Level 4.5 Chloride Level 101 Carbon Dioxide Level 27 Anion Gap 9 Blood Urea Nitrogen 14 Creatinine 0.60 Glucose Level 122 Calcium Level 8.2 L Medications Medications Current Medications Oxycodone/ Acetaminophen (Endocet (10/ 325)) 1 tab Q6H PRN PO Pain Last administered on 06/30/17 01:07; Admin Dose 1 TAB; Start 06/27/17 at 22:30 Docusate Sodium (Colace) 100 mg Q12H PO Last administered on 06/28/17 22:46; Admin Dose 100 MG; Start 06/27/17 at 22:30 Zolpidem Tartrate (Ambien) 5 mg QHS PRN PO SLEEP; Start 06/27/17 at 22:30 Famotidine (Pepcid) 20 mg Q12 PO Last administered on 06/30/17 08:49; Admin Dose 20 MG; Start 06/27/17 at 22:30 Morphine Sulfate (morphine) 2 mg Q4H PRN IV moderate to severe chest pain Last administered on 06/30/17 08:50; Admin Dose 2 MG; Start 06/27/17 at 22:30 PORTIA TORRE Jun 30, 2017 09:53
[2017-06-30 13:47] VITALS: BP 103/78; RESP 18
[2017-06-30 20:00] VITALS: BP 118/77; RESP 19
[2017-07-01 02:00] VITALS: BP 120/85; RESP 19
[2017-07-01] MEDS: morphine 2 MG INJ IV PRN ×4 (03:20→18:02)
[2017-07-01] MEDS: OXYCODONE/ACETAMINOPHEN (10/325) TAB PO PRN ×2 (04:25→14:27)
[2017-07-01 07:30] VITALS: BP 130/86; RESP 18
[2017-07-01] MEDS: DOCUSATE SODIUM 100 MG CAP PO SCH (10:30)
[2017-07-01] MEDS ORDERED: LIDOCAINE 1% (MPF) 5 ML VIAL ONE (10:31)
[2017-07-01] MEDS: FAMOTIDINE 20 MG TAB PO SCH (10:58)
--- NOTE | 2017-07-01 11:40 | RADRPT ---
PROCEDURE: XR Chest. CLINICAL INDICATION: Shortness of breath. TECHNIQUE: Single frontal view. COMPARISON: 06/28/2017. FINDINGS: The right pleural effusion is now smaller than seen previously. There is no pneumothorax. The left p leural effusion is moderate in size and much larger than seen previously. There is improved aeration of the right lung base and worse appearance of the left lung. The heart size is normal. There is no pneumothorax. IMPRESSION: 1. No pneumothorax following right thoracentesis. 2. Worse appearance of the left lung and larger left pleural effusion. RPTAT: QQ .Frankie Mccullough MD, MD Date Time Electronically viewed and signed by .Frankie Mccullough MD, on 07/01/2017 11:40 .R/
--- NOTE | 2017-07-01 12:45 | PN ---
Date/Time of Note Date/Time of Note DATE: 07/01/17 TIME: 12:40 Assessment/Plan VTE Prophylaxis VTE Prophylaxis Intervention: SCD's Lines/Catheters IV [facility] (from [facility] Saline Lock Urinary Cath still in place: No Assessment/Plan Assessment/Plan 47-year-old female with: 1. Recurrent pleural effusions, likely malignant secondary to metastatic adenocarcinoma. Status post left thoracentesis with removal of 1.9 L of pleural fluid, no complaining of shortness of breath and looking at chest x-ray post left thoracentesis, there is a large right pleural effusion still present, patient agreeable for right thoracentesis. S/p right thoracentesis today with removal of 1.2 L today Patient has been reminded again that she needs to seek treatment, these are only palliative thoracentesis were doing and we cannot keep doing it indefinitely. Eventually she will need Pleurx valve if she decides to pursue the palliative route. Discharged home today, she needs to follow-up as soon as possible with oncology as an outpatient and initiate treatment if she wishes to do so. 2. 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 Ultrasound-guided paracentesis attempted yesterday but not enough ascitic fluid again, distention likely from metastatic disease and masses. Again patient is encouraged to seek treatment even if she wants a second opinion to do so as soon as possible. 3. Chronic anemia, likely related to underlying malignancy and also episodes of mild rectal bleeding. Hemoglobin however stable this admission. Prophylaxis: SCDs for DVT prophylaxis, Pepcid for GI prophylaxis. Disposition: Discharge home with home O2 tomorrow, follow-up with pain management outpatient. Follow-up with oncology as soon as possible outpatient. Subjective 24 Hr Interval Summary Free Text/Dictation S/p right thoracentesis today D/c home this afternoon Exam/Review of Systems Vital Signs Vitals Vital Signs Date Time Temp Pulse Resp B/P Pulse Ox O2 Delivery O2 Flow Rate FiO2 07/01/17 07:30 98.6 84 18 130/86 98 06/30/17 23:21 2.0 06/30/17 20:10 Nasal Cannula Intake and Output 9/06/30/17 07/01/17 15:00 23:00 07:00 Intake Total 2600 ml 550 ml Balance 2600 ml 550 ml Exam Constitutional: alert, frail, oriented Respiratory: diminished breath sounds (L>R lower lung ), normal air movement Cardiovascular: nl pulses, regular rate and rhythm Gastrointestinal: distended, mass, soft Musculoskeletal: nl extremities to inspection Extremities: normal pulses, other (no edema, clubbing or cyanosis ) 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 DRIVER 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, nl mental status, nl speech, nl strength Results Result Diagram: 06/30/1742206/30/17422 Medications Medications Current Medications Oxycodone/ Acetaminophen (Endocet (10/ 325)) 1 tab Q6H PRN PO Pain Last administered on 07/01/17 04:25; Admin Dose 1 TAB; Start 06/27/17 at 22:30 Docusate Sodium (Colace) 100 mg Q12H PO Last administered on 06/28/17 22:46; Admin Dose 100 MG; Start 06/27/17 at 22:30 Zolpidem Tartrate (Ambien) 5 mg QHS PRN PO SLEEP; Start 06/27/17 at 22:30 Famotidine (Pepcid) 20 mg Q12 PO Last administered on 07/01/17 10:58; Admin Dose 20 MG; Start 06/27/17 at 22:30 Morphine Sulfate (morphine) 2 mg Q4H PRN IV moderate to severe chest pain Last administered on 07/01/17 08:25; Admin Dose 2 MG; Start 06/27/17 at 22:30 PORTIA TORRE Jul 01, 2017 12:45
--- NOTE | 2017-07-01 12:50 | PDOCDIS ---
Discharge Instructions CONDITION Patient Condition: Stable HOME CARE INSTRUCTIONS: Diet Instructions: Regular ACTIVITY: Activity Restrictions: Slowly Increase Activity FOLLOW UP/APPOINTMENTS Follow-up Plan Follow up with Outpatient Oncology and palliative care within 1 to 2 weeks Follow up with PCP within 1 to 2 weeks PORTIA TORRE Jul 01, 2017 12:50
--- NOTE | 2017-07-01 17:08 | RADRPT ---
PROCEDURE: US guided right thoracentesis. CLINICAL INDICATION: Shortness of breath. Right pleural effusion. TECHNIQUE: Prior to the procedure, informed consent was obtained. The risks, benefits, and alternatives were e xplained to the patient or the patient's family, including but not limited to bleeding, infection, p ain, visceral or vascular damage, shock, pneumothorax, chest tube placement, air embolism, and . The patient or the patient's family understood the risks and the alternatives and wished to proce ed with the study. Informed written consent was obtained. A procedural pause was performed. The patient's name, date of , and procedure to be performed were verified. Ultrasound of the right hemithorax was performed in the axial and sagittal planes. A right pleural e ffusion is noted. Utilizing ultrasound guidance, optimal location for entry to the pleural cavity wa s ascertained. The overlying skin was prepped and draped in the usual sterile fashion. Approximate ly 10 ml of 1% Xylocaine was injected locally for pain control. Using ultrasound guidance, a 5-Fren Yueh catheter was introduced into the right pleural space without difficulty. Fluid was aspirated . COMPARISON: Chest x-ray dated 06/28/2017. FINDINGS: Initial ultrasound demonstrates fluid in the right pleural space. Approximately 1.28 liters of sero us fluid was aspirated and discarded. IMPRESSION: 1. Satisfactory ultrasound-guided right thoracentesis. RPTAT: QQ .Frankie Mccullough MD, Date Time Electronically viewed and signed by .Frankie Mccullough MD, on 07/01/2017 17:08 .R/
== END 2017-07-01 20:25 | disposition home or self-care (01) | DRG 375 ==
LOC: E/R 17:25 → MS1 20:04 → OBSVTOIN 06-29 18:36
PROVIDERS: ADMIT Internal Medicine; ATTEND Internal Medicine
PROC: 0W9B3ZZ Drainage of Left Pleural Cavity, Percutaneous Approach (ICD-10-PCS; principal; 2017-06-29)
PROC: 0W993ZZ Drainage of Right Pleural Cavity, Percutaneous Approach (ICD-10-PCS; 2017-07-01)
DX: C18.9 Malignant neoplasm of colon, unspecified (principal); J91.0 Malignant pleural effusion; C79.60 Secondary malignant neoplasm of unspecified ovary; C79.89 Secondary malignant neoplasm of other specified sites; N64.89 Other specified disorders of breast; D63.0 Anemia in neoplastic disease
CPT/HCPCS: 32555; 36415; 71010; 76641; 76705; 76942; 80048; 80053; 85025; 85610; 85730; 93005; 93971; 96374; G0378; J1644; J2270